=== PATIENT | female | born 1975 | race Caucasian/White ===

== ENCOUNTER 2020-08-13 07:47 | Outpatient (REF) | payer OTHER, SELFPAY | END 2020-08-13 07:48 | disposition home or self-care (01) | LOC: HO.LAB 07:47 | PROVIDERS: Visit Provider Internal Medicine | DX: Z20.828 Contact with and (suspected) exposure to other viral communicable diseases (principal) | CPT/HCPCS: C9803; U0003 ==

== ENCOUNTER 2020-11-15 09:17 | Outpatient (REF) | payer OTHER, SELFPAY ==
[2020-11-15 10:39] LABS: T4 Thyroxine 8.3 ug/dL (4.5-12.0); Thyroid Stimulating Hormone 1.18 uIU/mL (0.32-4.0)
[2020-11-15 10:49] LABS: Erythrocyte Sedimentation Rate 2 MM/HR (0-20); Folate 11.9 ng/mL (> or = 4.0); Vitamin B12 941 pg/mL (200-900)
[2020-11-16 03:21] LABS: T3 Uptake 34 % (22-35)
== END 2020-11-15 09:18 | disposition home or self-care (01) ==
LOC: HO.LAB 09:17
PROVIDERS: Absent Provider Internal Medicine; PCP Internal Medicine; Visit Provider Psychiatry & Neurology Neurology
DX: E03.9 Hypothyroidism, unspecified (principal); R42 Dizziness and giddiness
CPT/HCPCS: 36415; 82306; 82607; 82746; 84436; 84443; 84479; 85652

== ENCOUNTER 2020-12-13 06:42 | Outpatient (REF) | payer OTHER, SELFPAY ==
[2020-12-13 07:07] LABS: MANUAL DIFF FLAG NO
[2020-12-13 07:41] LABS: Alanine Aminotransferase 17 U/L (0-31); Albumin Level 4.3 g/dL (3.5-5.0); Alkaline Phosphatase 53 U/L (39-117); Anion Gap 10 (12-20); Aspartate Amino Transferase 16 U/L (5-31); Bilirubin Total 0.3 mg/dL (0.0-1.0); Blood Urea Nitrogen 19 mg/dL (9-16); C Reactive Protein 0.02 mg/dL (< or = 0.50); Calcium 8.8 mg/dL (8.4-10.2); Carbon Dioxide 26 mmol/L (22-29); Chloride 109 mmol/L (96-108); Cholesterol 195 mg/dL; Estimated Glomerular Filt Rate > 60; Glucose Fasting 96 mg/dL (60-99); HDL Cholesterol 53 mg/dL; Iron 69 mcg/dL (30-160); LDL Cholesterol Calculated 126 mg/dl; Percent Iron Saturation 26 % (15-50); Potassium 4.3 mmol/L (3.3-5.1); Sodium 141 mmol/L (135-145); Total Iron Binding Capacity 263 mcg/dL (228-428); Total Protein 6.2 g/dL (6.5-8.0); Triglycerides 84 mg/dL; Unsaturated Iron Binding 194 ug/dL
[2020-12-13 07:48] LABS: Basophils Absolute Auto 0.1 X10*3/uL (0.0-0.2); Eosinophils Absolute Auto 0.2 X10*3/uL (0.0-0.4); Eosinophils Percent Auto 4.8 % (0-4); Hematocrit 43.2 % (37-47); Hemoglobin 14.2 g/dl (12.0-16.0); Imm Gran Abs Auto 0.01 X10*3/uL (0.00-0.03); Imm Gran Pct Auto 0.2 % (0.0-0.4); Lymphocytes Absolute Auto 1.8 X10*3/uL (1.2-4.9); Lymphocytes Percent Auto 37.7 % (20-40); Mean Corpuscular HGB Conc 32.9 g/dl (31.0-35.0); Mean Corpuscular Hemoglobin 32.3 pg (27.0-33.0); Mean Corpuscular Volume 98.4 fL (80-98); Mean Platelet Volume 11.5 fL (9.4-12.3); Monocytes Absolute Auto 0.4 X10*3/uL (0.1-1.2); Monocytes Percent Auto 7.9 % (2-11); Neutrophils Absolute Auto 2.3 X10*3/uL (2.0-8.3); Neutrophils Percent Auto 48.4 % (45-73); Platelet Count 167 X10*3/uL (160-400); Red Blood Count 4.39 X10*6/uL (4.20-5.50); Red Cell Distribution Width 11.9 % (11.0-16.0); White Blood Count 4.8 X10*3/uL (4.8-10.8)
[2020-12-13 08:01] LABS: Thyroid Stimulating Hormone 0.73 uIU/mL (0.32-4.0)
[2020-12-13 08:10] LABS: Free T4 (Free Thyroxine) 1.03 ng/dL (0.71-1.85)
[2020-12-13 08:38] LABS: Erythrocyte Sedimentation Rate 1 MM/HR (0-20)
[2020-12-14 07:52] LABS: Triiodothyronine T3 Free 2.5 pg/mL (2.3-4.2)
[2020-12-14 09:07] LABS: Follicle Stimulating Hormone 6.2 mIU/mL
[2020-12-15 14:57] LABS: Anti Nuclear Antibody Pattern Nuclear, Homogeneous; Anti Nuclear Antibody Screen POSITIVE (NEGATIVE); Anti Nuclear Antibody Titer 1:40 titer
== END 2020-12-13 06:43 | disposition home or self-care (01) ==
LOC: HO.LAB 06:42
PROVIDERS: Internal Medicine; PCP Internal Medicine; Visit Provider Internal Medicine
DX: E03.9 Hypothyroidism, unspecified (principal)
CPT/HCPCS: 36415; 80053; 80061; 83001; 83540; 84439; 84443; 84481; 85025; 85652; 86038; 86039; 86140

== ENCOUNTER 2021-01-18 07:57 | Outpatient (REF) | payer OTHER, SELFPAY ==
--- NOTE | ~2021-01-18 | CT_ITS ---
EXAMINATION: CT HEAD WITHOUT CONTRAST CLINICAL INFORMATION: Head injury. COMPARISON: Most recent CT brain dated 12/18/2016 TECHNIQUE: Contiguous axial imaging was performed from the skull base to vertex without intravenous administration of contrast. This CT examination was performed using dose optimization techniques as appropriate, variously including the following: *Automated exposure control *Adjustment of mA and/or kV according to patient size (this includes techniques or standardized protocols for targeted exams where dose is matched to indication/reason for exam; i.e. extremities or head) *Use of iterative reconstruction technique DLP: 668 mGy-cm FINDINGS: There is no evidence of acute intracranial hemorrhage or territorial infarction. No abnormal mass effect or midline shift is seen. B[place]ante to white matter differentiation is well preserved. No extra-axial fluid collections are identified. The ventricles are normal in size. There is no abnormal attenuation within the brain parenchyma. The osseous structures and soft tissues are normal. The mastoid air cells and visualized portions of the paranasal sinuses are well aerated. CT/CT head/brain wo con IMPRESSION: No acute intracranial hemorrhage or mass effect.
== END 2021-01-18 07:58 | disposition home or self-care (01) ==
LOC: HO.CT 07:57
PROVIDERS: PCP Internal Medicine; Visit Provider Internal Medicine
DX: S09.90XA Unspecified injury of head, initial encounter (principal); R40.20 Unspecified coma
CPT/HCPCS: 70450

== ENCOUNTER 2021-03-22 20:22 | Emergency (ER) | payer OTHER, SELFPAY ==
--- NOTE | 2021-03-22 | ECG_ITS ---
Test Reason : chest pain Blood Pressure : / mmHG Vent. Rate : 060 BPM Atrial Rate : 060 BPM P-R Int : 158 ms QRS Dur : 070 ms QT Int : 382 ms P-R-T Axes : 082 032 052 degrees QTc Int : 382 ms Poor data quality Normal sinus rhythm with sinus arrhythmia No previous ECGs available Referred By: Generic ED Physician Electronically Signed By:Anselmo Rabago
--- NOTE | ~2021-03-22 | XR_ITS ---
EXAMINATION: XR CHEST, 2 VIEWS CLINICAL INFORMATION: Chest wall pain COMPARISON: None. TECHNIQUE: PA and lateral views of the chest were obtained. FINDINGS: Lungs are clear. No consolidation, pneumothorax, or pleural effusion. Cardiac and mediastinal contours are normal. Pulmonary vasculature is unremarkable. Trachea is midline. There is sigmoid scoliotic curvature in the upper lumbar spine. Spinal stimulator leads terminate over the mid to lower thoracic spine from T8 through T11. No acute osseous findings. XR/XR chest 2V IMPRESSION: No acute cardiopulmonary findings. No acute osseous findings. Spinal stimulator leads are in place month the mid to lower thoracic spine.
[2021-03-22 21:14] VITALS: BP 124/68; PULSE 77; RESP 18; TEMP 36.1; O2SAT 96; BMI 22.8
[2021-03-22 22:10] LABS: MANUAL DIFF FLAG NO
[2021-03-22 22:11] LABS: Basophils Absolute Auto 0.1 X10*3/uL (0.0-0.2); Basophils Percent Auto 0.7 % (0-2); Eosinophils Absolute Auto 0.3 X10*3/uL (0.0-0.4); Eosinophils Percent Auto 5.1 % (0-4); Hematocrit 41.7 % (37-47); Imm Gran Abs Auto 0.01 X10*3/uL (0.00-0.03); Imm Gran Pct Auto 0.1 % (0.0-0.4); Lymphocytes Absolute Auto 1.9 X10*3/uL (1.2-4.9); Lymphocytes Percent Auto 28.1 % (20-40); Mean Corpuscular HGB Conc 33.6 g/dl (31.0-35.0); Mean Corpuscular Hemoglobin 32.1 pg (27.0-33.0); Mean Corpuscular Volume 95.6 fL (80-98); Mean Platelet Volume 11.2 fL (9.4-12.3); Monocytes Absolute Auto 0.4 X10*3/uL (0.1-1.2); Monocytes Percent Auto 5.9 % (2-11); Neutrophils Percent Auto 60.1 % (45-73); Platelet Count 176 X10*3/uL (160-400); Red Blood Count 4.36 X10*6/uL (4.20-5.50); White Blood Count 6.7 X10*3/uL (4.8-10.8)
[2021-03-22 22:46] LABS: Alanine Aminotransferase 7 U/L (0-31); Albumin Level 4.2 g/dL (3.5-5.0); Alkaline Phosphatase 56 U/L (39-117); Anion Gap 11 (12-20); Aspartate Amino Transferase 11 U/L (5-31); Bilirubin Total 0.4 mg/dL (0.0-1.0); Blood Urea Nitrogen 15 mg/dL (9-16); Calcium 9.3 mg/dL (8.4-10.2); Carbon Dioxide 24 mmol/L (22-29); Chloride 109 mmol/L (96-108); Creatinine Clr Calc Pharmacy 94.7; Estimated Glomerular Filt Rate > 60; Glucose Random 96 mg/dL (60-115); Potassium 4.1 mmol/L (3.3-5.1); Sodium 140 mmol/L (135-145); Total Protein 6.3 g/dL (6.5-8.0)
[2021-03-22 22:52] LABS: Troponin-I High Sensitivity < 3.5 ng/L (<3.5-17.0)
--- NOTE | 2021-03-23 01:04 | ED_ITS ---
HPI - Chest Pain General Chief Complaint: Chest Pain Stated Complaint: rib pain Time Seen by Provider: 03/23/21 00:59 Source: patient Mode of arrival: ambulatory History of Present Illness HPI narrative: 45-year-old female with history of chronic pain secondary to multiple back surgeries now presenting with atraumatic shoulder/arm/chest wall pain that she states has been ongoing and worsening for the past 3 days. This is not been associated with any fever, chills, shortness of breath, palpitations, GI or symptoms. Patient states that she has used various [id number] modalities as well as her own medications. The pain does not worsen with deep inspiration but patient notes that on palpation she is experiencing discomfort. She denies any recent travel or calf swelling/pain. Related Data Home Medications Medication Instructions Recorded Confirmed gabapentin 300 mg capsule 600 mg PO BEDTIME 12/23/20 12/23/20 levothyroxine 112 mcg capsule 112 mcg PO DAILY 12/23/20 12/23/20 Allergies Allergy/AdvReac Type Severity Reaction Status Date / Time heparin [HEPARIN] Allergy Unknown ILL Verified 12/23/20 12:56 PLATELETS UNKNOWN heparin (porcine) Allergy Unknown unkn Verified 12/23/20 12:56 hydrocodone [Vicodin] Allergy Unknown Unknown Verified 12/23/20 12:56 hydromorphone [Dilaudid] Allergy Unknown cold sweats Verified 12/23/20 12:56 levothyroxine sodium Allergy Unknown Unknown Verified 12/23/20 12:56 meperidine [From DEMEROL] Allergy Unknown UNKNOWN Verified 12/23/20 12:56 tizanidine [From ZANAFLEX] Allergy Unknown WELTS Verified 12/23/20 12:56 APPEAR ALL OVER BODY tramadol [Ultram] Allergy Unknown welts Verified 12/23/20 12:56 acetaminophen [From PERCOCET] AdvReac Unknown UPSET/AGITA Verified 12/23/20 12:56 MICHAEL oxycodone [From PERCOCET] AdvReac Unknown UPSET/AGITA Verified 12/23/20 12:56 MICHAEL Review of Systems Review of Systems: Pertinent positives and negatives as stated in HPI 10 point review systems otherwise negative. PMFSH Past Medical History Source: nursing notes reviewed Medical History Acquired hypothyroidism Allergies Colon polyps Depression with anxiety Fatigue Head injury Hypothyroidism LOC (loss of consciousness) Nephrolithiasis Retinal detachment Seizure disorder Surgical History H/O: hysterectomy History of back surgery History of section History of kidney stones History of lumbar fusion History of thyroidectomy History of tonsillectomy Hx of removal of neck cyst S/P lumbar laminectomy Family History Family History Father No problems noted. Mother No problems noted. Brother No problems noted. Son No problems noted. Daughter No problems noted. Daughter No problems noted. Daughter No problems noted. Social History Social History Alcohol intake: current Advance Directives: No Advance Directives Information Provided: No Patient : No Physical Exam Vital Signs: Vital Signs: Last Vital Signs Temp 97.0 F 03/22/21 21:14 Pulse 77 03/22/21 21:14 Resp 18 03/22/21 21:14 BP 124/68 03/22/21 21:14 Pulse Ox 96 03/22/21 21:14 Body Mass Index 22.8 VITAL SIGNS: Reviewed. GENERAL: Well developed, well nourished, in no acute distress. HEAD: Normocephalic/atraumatic EYES: PERRLA, EOMI OROPHARYNX: no oral lesions noted, posterior pharynx clear LUNGS: Normal breath sounds. No adventitious sounds or accessory muscle use. SpO2<96> CARDIOVASCULAR: Regular rate and rhythm without noted murmurs ABDOMEN: Soft, non-tender, non-distended with bowel sounds. CHEST WALL/LEFT UPPER EXTREMITY: Patient is noted to be freely moving her left upper extremity at the shoulder without restrictions, capillary refill less than 3 seconds, palpable radial/ulnar, pain on palpation over superior and medial scapular area NEUROLOGIC: Alert and oriented x 4. Course Course Course Narrative: 45-year-old female with history and clinical presentation consistent with musculoskeletal pain, will evaluate for less likely cardiopulmonary etiologies and inconsistent with renal colic and low suspicion for splenic etiology. Review of all investigations negative for any acute findings, patient declining Toradol stating that it does not work, and discharged with pain regimen that should be able to augment her current prescription medications. MDM - Chest Pain Lab Data Result diagrams: 03/22/21 22:03 03/22/21 22:03 Labs: Lab Results 03/22/21 03/22/21 03/22/21 Range/Units 22:03 22:03 22:03 WBC 6.7 (4.8-10.8) X10*3/uL RBC 4.36 (4.20-5.50) X10*6/uL Hgb 14.0 (12.0-16.0) g/dl Hct 41.7 (37-47) % MCV 95.6 (80-98) fL MCH 32.1 (27.0-33.0) pg MCHC 33.6 (31.0-35.0) g/dl RDW 12.0 (11.0-16.0) % Plt Count 176 (160-400) X10*3/uL MPV 11.2 (9.4-12.3) fL Immature Gran % (Auto) 0.1 (0.0-0.4) % Neut % (Auto) 60.1 (45-73) % Lymph % (Auto) 28.1 (20-40) % [place] % (Auto) 5.9 (2-11) % Eos % (Auto) 5.1 H (0-4) % Baso % (Auto) 0.7 (0-2) % Lymph # (Auto) 1.9 (1.2-4.9) X10*3/uL [place] # (Auto) 0.4 (0.1-1.2) X10*3/uL Eos # (Auto) 0.3 (0.0-0.4) X10*3/uL Baso # (Auto) 0.1 (0.0-0.2) X10*3/uL Abs Immat Gran (auto) 0.01 (0.00-0.03) X10*3/uL Absolute Neuts (auto) 4.0 (2.0-8.3) X10*3/uL Absolute Nucleated RBC 0.000 (0.0-0.012) X10*3/uL Nucleated RBC % (auto) 0.0 (0.0-0.2) /100WBC Sodium 140 (135-145) mmol/L Potassium 4.1 (3.3-5.1) mmol/L Chloride 109 H (96-108) mmol/L Carbon Dioxide 24 (22-29) mmol/L Anion Gap 11 L (12-20) BUN 15 (9-16) mg/dL Creatinine 0.80 (0.5-1.4) mg/dL Estim Creat Clear Calc 94.7 Estimated GFR > 60 Random Glucose 96 (60-115) mg/dL Calcium 9.3 (8.4-10.2) mg/dL Total Bilirubin 0.4 (0.0-1.0) mg/dL AST 11 (5-31) U/L ALT 7 (0-31) U/L Alkaline Phosphatase 56 (39-117) U/L Troponin I High Sens < 3.5 (<3.5-17.0) ng/L Total Protein 6.3 L (6.5-8.0) g/dL Albumin 4.2 (3.5-5.0) g/dL ECG Data ECG #1: Attestation: I personally reviewed and interpreted this ECG as follows: Prior ECG tracings: not available for review Interpretation: Normal sinus rhythm with sinus arrhythmia, HR-60, no evidence of acute ischemia, [place]/QRS/QTC are within normal limits. Discharge Plan Discharge Clinical Impression: Musculoskeletal pain of left upper extremity Patient Disposition: Home, Self-Care Instructions: Musculoskeletal Pain (ED) Additional Instructions: 1. Please resume all home medications as prescribed. 2. Lidocaine patch, available [id number], continue to apply to area of maximal pain as directed on the outside packaging. 3. Recommend following up with your primary care provider for re-evaluation. Return to the ER for acute worsening of symptoms. Prescriptions: No Action levothyroxine 112 mcg capsule 112 mcg PO DAILY RF: 0 gabapentin 300 mg capsule 600 mg PO BEDTIME RF: 0 Referrals: Yoko He MD [Primary Care Provider] - 2 days (Re-evaluation for musculoskeletal pain.)
--- NOTE | 2021-03-23 02:32 | PC.NURSE ---
pt refused the pain medication the provider was going to prescribe for her, pt states that the medication doesnt work for her. While the pt is making this statement she was raising her arms moving all extremities with no difficulty or grimising. provider made aware. pt was on phone became upset on the phone and left. pt left without signing her discharge papers.
--- NOTE | 2021-03-23 02:37 | PC.NURSE ---
pt was seen leaving while on her cell phone at 0230 going to the waiting room, pt did not return and no signiture on her discharge was obtained.
== END 2021-03-23 02:36 | disposition home or self-care (01) ==
PROVIDERS: Emergency Provider Student in an Organized Health Care Education/Training Program; PCP Internal Medicine
DX: M79.602 Pain in left arm (principal); R07.89 Other chest pain
CPT/HCPCS: 36415; 71046; 80053; 84484; 85025; 93005; 99283

== ENCOUNTER 2021-06-17 13:26 | Outpatient (REF) | payer OTHER, SELFPAY ==
--- NOTE | ~2021-06-17 | XR_ITS ---
EXAMINATION: XR KNEE, LEFT CLINICAL INFORMATION: Pain in left knee COMPARISON: None TECHNIQUE: Four views of the left knee. FINDINGS: No acute visible fracture or dislocation. Mild narrowing of the medial femorotibial compartment. Spurring of the tibial spines. Joint spaces and alignment are otherwise maintained. No large knee joint effusion. Soft tissues are unremarkable. XR/XR knee LT 4V IMPRESSION: 1. No acute visible fracture or dislocation. 2. Mild multicompartment degenerative changes.
== END 2021-06-17 13:27 | disposition home or self-care (01) ==
LOC: HO.HMGCX 13:26
PROVIDERS: PCP Internal Medicine; Visit Provider Internal Medicine
DX: Z13.89 Encounter for screening for other disorder (principal)
CPT/HCPCS: 73564

== ENCOUNTER 2021-06-29 08:50 | Outpatient (RCR) | payer OTHER, SELFPAY ==
--- NOTE | 2021-06-29 12:52 | MHC.PT.EP ---
[facility] [place] Office [place] Office [place] Office [address] [phone] F: [phone] F: [phone] F: [phone] F: [phone] Physical Therapy Plan of Care Date of Evaluation: Date of Surgery: NA Diagnosis: PAIN IN L KNEE Assessment: Pt IS 46 YO F WITH LENGTHY/COMPLEX MEDICAL HX REFERRED TO PT FROM [facility] WITH L KNEE PAIN. Pt REPORTS ONSET OF SXS ABOUT 1 YR AGO WHEN SITTING/BOUNCING ON PHYSIOBALL AND FELT A POP IN L KNEE. DID NOT HAVE PT. XRAY + FOR ARTHRITIS. PRESENTS WITH GOOD ROM IN KNEES WITH GOOD STRENGTH ON L (PAINFUL SIDE) BUT DECREASED STRENGTH ON R SIDE (HX OF BACK SURGERIES, HAS SC STIMULATOR R LB). Pt SHOULD BENEFIT FROM PT FOR LE TREATMENT OF PF SYNDROME WITH STRENGTHENING, TAPING, HIP AND CORE WORK ALL BEING MINDFUL OF LB (S/P 7 SURGERIES). OF NOTE, Pt REPORTS HERNIA REPAIR AND C SECTION FOR TWINS 16 YRS AGO (HER KIDS LIVE WITH THEIR GRANDMOTHER) WITH RESULTANT ABDOMINAL WEAKNESS. Frequency and Duration: The patient will be seen 2X/WK X 6 WKS Short Term Goals: 1. INCREASED AWARENESS KNEE CARE/SELF TAPING IF INDICATED 2. 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 DECREASED L KNEE PAIN AT LEAST 50% WITH ADLS Treatment Plan: Modalities to reduce pain, spasms and effusion. Manual therapy to restore motion and function. Therapeutic exercise to improve strength and flexibility. Neuromuscular re-education for posture and balance. Therapeutic activities to return to functional activities of daily living. Electronically signed by: LAVON HOGAN PT Please sign and return to therapist. Thank you for your referral.
--- NOTE | 2021-08-03 09:11 | MHC.PT.DC ---
[facility] [place] Office [place] Office [place] Office [address] [phone] F: [phone] F: [phone] F: [phone] F: [phone] Physical Therapy Discharge Report Diagnosis: PAIN IN L KNEE Date of Surgery: NA Date of Evaluation: 06/29/21 Date of Discharge: 08/03/21 Treatments to Date: 1 Cancellations to Date: No Shows to Date: Discharge Status: Recommend MD Follow-up Visit Non-compliance Discharge Summary: Pt SEEN FOR [facility] THEN CANCELLED FURTHER APPTS SECONDARY TO NOT FEELING WELL IN THE MORNINGS. ASSESSMENT AT [facility] 'Pt IS 46 YO F WITH LENGTHY/COMPLEX MEDICAL HX REFERRED TO PT FROM [facility] WITH L KNEE PAIN. Pt REPORTS ONSET OF SXS ABOUT 1 YR AGO WHEN SITTING/BOUNCING ON PHYSIOBALL AND FELT A POP IN L KNEE. DID NOT HAVE PT. XRAY + FOR ARTHRITIS. PRESENTS WITH GOOD ROM IN KNEES WITH GOOD STRENGTH ON L (PAINFUL SIDE) BUT DECREASED STRENGTH ON R SIDE (HX OF BACK SURGERIES, HAS SC STIMULATOR R LB). Pt SHOULD BENEFIT FROM PT FOR LE TREATMENT OF PF SYNDROME WITH STRENGTHENING, TAPING, HIP AND CORE WORK ALL BEING MINDFUL OF LB (S/P 7 SURGERIES). OF NOTE, Pt REPORTS HERNIA REPAIR AND C SECTION FOR TWINS 16 YRS AGO (HER KIDS LIVE WITH THEIR GRANDMOTHER) WITH RESULTANT ABDOMINAL WEAKNESS. ' Electronically signed by: LAVON HOGAN PT Please sign and return to therapist. Thank you for your referral.
== END 2021-08-03 09:13 | disposition home or self-care (01) ==
LOC: HO.PTWFD 08:50
PROVIDERS: PCP Internal Medicine; Visit Provider Internal Medicine
DX: M25.562 Pain in left knee (principal)
CPT/HCPCS: 97110; 97140; 97162

== ENCOUNTER 2022-05-03 06:33 | Outpatient (REF) | payer OTHER, SELFPAY ==
[2022-05-03 07:33] LABS: Basophils Percent Auto 0.6 % (0-2); Eosinophils Absolute Auto 0.3 X10*3/uL (0.0-0.4); Eosinophils Percent Auto 5.7 % (0-4); Hematocrit 45.5 % (37.0-47.0); Imm Gran Abs Auto 0.02 X10*3/uL (0.00-0.03); Imm Gran Pct Auto 0.4 % (0.0-0.4); Lymphocytes Absolute Auto 1.6 X10*3/uL (1.2-4.9); Lymphocytes Percent Auto 33.4 % (20-40); MANUAL DIFF FLAG NO; Mean Corpuscular Hemoglobin 32.1 pg (27.0-33.0); Mean Corpuscular Volume 97.2 fL (80.0-98.0); Mean Platelet Volume 11.1 fL (9.4-12.3); Monocytes Absolute Auto 0.4 X10*3/uL (0.1-1.2); Monocytes Percent Auto 7.6 % (2-11); Neutrophils Absolute Auto 2.5 x10*3/uL (2.0-8.3); Neutrophils Percent Auto 52.3 % (45-73); Platelet Count 177 X10*3/uL (160-400); Red Blood Count 4.68 X10*6/uL (4.20-5.50); Red Cell Distribution Width 12.7 % (11.0-16.0); White Blood Count 4.7 X10*3/uL (4.8-10.8)
[2022-05-03 07:57] LABS: Alanine Aminotransferase 14 U/L (0-31); Albumin Level 4.4 g/dL (3.5-5.0); Alkaline Phosphatase 55 U/L (39-117); Anion Gap 12 (12-20); Aspartate Amino Transferase 13 U/L (5-31); Bilirubin Total 0.4 mg/dL (0.0-1.0); Blood Urea Nitrogen 12 mg/dL (9-16); Calcium 9.1 mg/dL (8.4-10.2); Carbon Dioxide 24 mmol/L (22-29); Chloride 110 mmol/L (96-108); Cholesterol 214 mg/dL; Estimated Glomerular Filt Rate > 60; Glucose Fasting 95 mg/dL (60-99); HDL Cholesterol 53 mg/dL; LDL Cholesterol Calculated 143 mg/dl; Potassium 4.4 mmol/L (3.3-5.1); Sodium 142 mmol/L (135-145); Total Protein 6.5 g/dL (6.5-8.0); Triglycerides 93 mg/dL
[2022-05-03 08:21] LABS: TSH reflex Free T4 2.03 uIU/mL (0.32-4.0)
[2022-05-03 08:36] LABS: Appearance Urine HAZY; Color Urine YELLOW; Glucose Urine UA NEG (NEG); Leukocyte Esterase Urine 1+ (NEG); Nitrite Urine POS (NEG); Specific Gravity - Urine 1.015 (1.005-1.025); Urine Blood TRACE (NEG); Urine Ketones NEG (NEG); Urine Protein TRACE MG/DL (NEG-TRACE)
[2022-05-03 08:51] LABS: Bacteria Urine 3+ /LPF; Squamous Epithelial Cell Urine 2+ /LPF
== END 2022-05-03 06:34 | disposition home or self-care (01) ==
LOC: HO.LAB 06:33
PROVIDERS: PCP Internal Medicine; Visit Provider Internal Medicine
DX: Z00.00 Encounter for general adult medical examination without abnormal findings (principal); E03.9 Hypothyroidism, unspecified; Z13.220 Encounter for screening for lipoid disorders; Z13.29 Encounter for screening for other suspected endocrine disorder; M25.562 Pain in left knee
CPT/HCPCS: 36415; 80053; 80061; 81001; 84443; 85025

== ENCOUNTER 2023-01-03 08:45 | Outpatient (REF) | payer OTHER, SELFPAY ==
[2023-01-03 10:44] LABS: TSH reflex Free T4 0.45 uIU/mL (0.32-4.0)
[2023-01-05 07:23] LABS: Triiodothyronine T3 Free 3.4 pg/mL (2.3-4.2)
== END 2023-01-03 08:46 | disposition home or self-care (01) ==
LOC: HO.LAB 08:45
PROVIDERS: PCP Internal Medicine; Visit Provider Internal Medicine
DX: E03.9 Hypothyroidism, unspecified (principal)
CPT/HCPCS: 36415; 84443; 84481

== ENCOUNTER 2023-01-18 12:38 | Emergency (ER) | payer OTHER, SELFPAY ==
--- NOTE | ~2023-01-18 | CT_ITS ---
EXAMINATION: NONCONTRAST HEAD CT NONCONTRAST MAXILLOFACIAL CT INDICATION INFORMATION: Acute traumatic head injury . Right orbital trauma. COMPARISON: 01/18/2021 TECHNIQUE: Separate noncontrast CT examinations of the head and maxillofacial bones were performed. Coronal and sagittal images were created for each examination at the technologist workstation. This CT examination was performed using dose optimization techniques as appropriate, variously including the following: *Automated exposure control *Adjustment of mA and/or kV according to patient size (this includes techniques or standardized protocols for targeted exams where dose is matched to indication/reason for exam; i.e. extremities or head) *Use of iterative reconstruction technique DLP: 752 mGy-cm FINDINGS: Head: There is no evidence of acute intracranial hemorrhage or territorial infarction. No abnormal mass effect or midline shift is seen. Bust[place]ante to white matter differentiation is well preserved. No extra-axial fluid collections are identified. No hydrocephalus. No significant volume loss. There is no abnormal attenuation within the brain parenchyma. No acute soft tissue abnormality. No calvarial fracture. The mastoid air cells are well aerated. Maxillofacial: No acute maxillofacial fractures are seen. The orbital rims are intact. The lamina papyracea are intact. The pterygoid plates are intact. The zygomatic arches are intact. Mild mucoperiosteal thickening of the maxillary sinuses. The remaining paranasal sinuses are well aerated. The uncinate process is normal bilaterally. The infundibula and middle meati are patent. The nasal septum is midline. The mandibular heads are well-seated in the condylar fossa. The orbits demonstrate a normal appearance bilaterally. The globes are intact, and there are no suspicious findings to suggest retrobulbar hemorrhage. Scleral band at the left globe. CT/CT head/brain wo IV con IMPRESSION: 1. No acute intracranial finding. 2. No acute maxillofacial fracture.
[2023-01-18 12:42] VITALS: BP 127/92; PULSE 75; RESP 17; TEMP 36.6; O2SAT 98; BMI 20.7
--- NOTE | 2023-01-18 13:03 | ECG_ITS ---
Test Reason : dizziness Blood Pressure : / mmHG Vent. Rate : 059 BPM Atrial Rate : 059 BPM P-R Int : 180 ms QRS Dur : 098 ms QT Int : 394 ms P-R-T Axes : 081 056 070 degrees QTc Int : 390 ms Sinus bradycardia with sinus arrhythmia Otherwise normal ECG When compared with ECG of 22-MAR-2021 21:50, No significant changes seen Referred By: Rita Laird Electronically Signed By:VICENTE JARVIS
[2023-01-18 13:23] LABS: MANUAL DIFF FLAG NO
[2023-01-18 13:27] LABS: Basophils Percent Auto 0.4 % (0-2); Eosinophils Percent Auto 0.3 % (0-4); Hematocrit 45.2 % (37.0-47.0); Imm Gran Abs Auto 0.02 X10*3/uL (0.00-0.03); Imm Gran Pct Auto 0.3 % (0.0-0.4); Lymphocytes Absolute Auto 1.4 X10*3/uL (1.2-4.9); Lymphocytes Percent Auto 18.1 % (20-40); Mean Corpuscular HGB Conc 33.2 g/dl (31.0-35.0); Mean Corpuscular Hemoglobin 31.7 pg (27.0-33.0); Mean Corpuscular Volume 95.6 fL (80.0-98.0); Mean Platelet Volume 10.8 fL (9.4-12.3); Monocytes Absolute Auto 0.4 X10*3/uL (0.1-1.2); Monocytes Percent Auto 4.6 % (2-11); Neutrophils Percent Auto 76.3 % (45-73); Platelet Count 214 X10*3/uL (160-400); Red Blood Count 4.73 X10*6/uL (4.20-5.50); Red Cell Distribution Width 12.1 % (11.0-16.0); White Blood Count 7.9 X10*3/uL (4.8-10.8)
[2023-01-18 13:31] LABS: INTERNATIONAL NORM RATIO 0.9 (0.9-1.1); Prothrombin Time 10.6 SEC (10.0-13.1)
[2023-01-18 13:34] VITALS: BP 138/70; PULSE 65; RESP 20; TEMP 36.8; O2SAT 98
--- NOTE | 2023-01-18 14:02 | ED.GENADULT ---
HPI - General Adult General Chief complaint: General Medical Stated complaint: rash on both legs/dizziness/nausea Time Seen by Provider: 01/18/23 13:38 Source: patient Mode of arrival: ambulatory Limitations: no limitations History of Present Illness HPI narrative: A 47-year-old female with history of multiple surgeries presents with multiple complaints. First of all, patient notes a rash lower extremities. This has been going on for several weeks. Not painful or irritating. His dark patches on the lower extremities. She denies any additional rashes elsewhere. She does report scattered ecchymoses at her nontraumatic in nature. Over the past week, however, patient has had transient vision loss which she describes as white duran of vision that lasts briefly. Associated with difficulty ambulating and frequent falls. Today, patient was on the stairs, fell, hit her head. There is no loss of consciousness. Patient describes a severe headache. She denies any focal neurologic deficits. She does have a headache. The headache was moderate nature. The pain is generalized. Does not radiate. Not associated with photo or phonophobia. There is associated nausea but no vomiting. Patient reports a history of multiple back surgeries. She has a dorsal column stimulator. She reports that is currently functioning without significant issues. Patient is currently with a good friend of hers. Her friend is concerned about safety related issues. From reports a significant amount of stress and poor living situation. Patient reports a lot of herbal yelling from her roommate who is also her boss. She denies any physical abuse. Overall she feels safe however, from does not believe she is safe. Friend is requesting a psychiatric evaluation and respite. Patient denies SI or HI. She does agree that there is stress and anxiety. She is more anxious that she might have leukemia due to the rash that she has. Patient does not distally want to stay in the hospital she has classic this evening and she has a dog that she likes a care. He friend offered to take the pat home with her. Related Data Home Medications Medication Instructions Recorded Confirmed gabapentin 300 mg capsule 600 mg PO BEDTIME 12/23/20 06/19/22 ascorbate calcium (vitamin C) 500 1,000 mg PO DAILY 06/16/21 06/19/22 mg tablet Previous Rx's Medication Instructions Recorded Tirosint 112 mcg capsule 112 mcg PO DAILY #90 caps 06/19/22 (levothyroxine) Allergies Allergy/AdvReac Type Severity Reaction Status Date / Time heparin [HEPARIN] Allergy Unknown ILL Verified 06/19/22 13:25 PLATELETS UNKNOWN heparin (porcine) Allergy Unknown unkn Verified 06/19/22 13:25 hydrocodone [Vicodin] Allergy Unknown Hallucinati Verified 06/19/22 13:25 ons hydromorphone [Dilaudid] Allergy Unknown cold sweats Verified 06/19/22 13:25 levothyroxine sodium Allergy Unknown Nausea Verified 06/19/22 13:25 meperidine [From DEMEROL] Allergy Unknown n/a Verified 06/19/22 13:25 tizanidine [From ZANAFLEX] Allergy Unknown WELTS Verified 06/19/22 13:25 APPEAR ALL OVER BODY tramadol [Ultram] Allergy Unknown welts Verified 06/19/22 13:25 corn Allergy Swelling Verified 01/18/23 12:42 wheat Allergy Swelling Verified 01/18/23 12:42 acetaminophen [From PERCOCET] AdvReac Unknown UPSET/AGITA Verified 06/19/22 13:25 MICHAEL oxycodone [From PERCOCET] AdvReac Unknown UPSET/AGITA Verified 06/19/22 13:25 MICHAEL vinegar Allergy Swelling Uncoded 01/18/23 12:42 PMFSH Past Medical History Medical History Abdominal wall hernia Acquired hypothyroidism Allergies Annual physical exam Colon polyps Depression with anxiety Fatigue Head injury Hypothyroidism Knee pain, left LOC (loss of consciousness) Nephrolithiasis Retinal detachment Seizure disorder Surgical History H/O: hysterectomy History of back surgery History of section History of kidney stones History of lumbar fusion History of thyroidectomy History of tonsillectomy Hx of removal of neck cyst S/P lumbar laminectomy Family History Family History Father No problems noted. Mother No problems noted. Brother Substance use disorder Son No problems noted. Daughter No problems noted. Daughter No problems noted. Daughter No problems noted. Social History Social History Housing: House Alcohol intake: never Patient Tobacco Use Status: Former Tobacco user Quit Date: 2 years ago Smoked in Last 30 Days: Yes e-Cigarette/Vaping Use: Never Used Use of substances other than those prescribed or required for medical reasons: Yes Substance Use Type: Marijuana Advance Directives: No Advance Directives Information Provided: No Current occupational status: disabled Cognitive needs: No Hearing needs: No Vision needs: Yes Physical Exam ED Vital Signs: Vital Signs - 24 hr 01/18/23 12:42 01/18/23 13:34 Temperature 98 F 98.2 F Pulse Rate 75 65 Respiratory Rate 17 20 Blood Pressure 127/92 H 138/70 Pulse Oximetry 98 98 Oxygen Delivery Method Room Air Room Air BMI result Body Mass Index 20.7 GEN: Well developed, no acute distress, alert, oriented HEENT: Normocephalic, right lateral orbital ecchymoses, normal external ears, nose appears normal, no oropharyngeal edema or exudates Eyes: Normal to appearance Neck: Supple, no lymphadenopathy Respiratory: Talks in complete sentences, no respiratory distress, clear to auscultation bilaterally Cardiovascular: Regular rate and rhythm, no murmurs rubs or gallops Abdomen: Soft, nontender, nondistended, no guarding, no rebound Back: No CVA tenderness Extremities: No clubbing cyanosis or edema Neurologic: No focal neurologic deficits, cranial nerves 2-12 intact, strength is 5/5 bilaterally Skin: Light brown spotted rash on lower extremities non raise Course Course Course Narrative: Patient presents with multiple complaints. Regarding frequent falls, etiology is not entirely clear. Patient also has intermittent vision changes. There certainly could be an ophthalmological related issue versus a neurologic issue. She is under the care of a neurologist currently. Symptoms started approximately 1 week ago. My evaluation, there are no focal neurologic deficits. There are ecchymosis on the right lateral orbit. She denies that this is due to physical abuse. She reports that she has had frequent falls. He the transient vision loss is not entirely well understood at this time. Patient reports having a retinal buckle in her left eye patient has scattered ecchymoses and a rash. Symptoms could be concerning for vasculitis, petechia a and low platelets or perhaps some not benign other finding. Given the constellation of complaints, patient have a CT scan of the head with and without IV contrast. Will check laboratory analysis. Will consider a psychiatric evaluation given the degree of stress and anxiety. Patient however, does not appear the threat to herself or others. She is not suicidal or homicidal. Patient does not appear to be specifically willing to be admitted for behavioral health reasons at this time. Reevaluation(s) Reevaluation #1: patient had IV but became very anxious demanded IV removal. Will have CT without contrast only to r/o acute ICH. MRI not possible given DCS. Time: 14:47 Reevaluation #2: Patient decided to elope. I was able to talk with her briefly on the way out. She is leaving against medical advice but did not want to sign paperwork or wait for her discharge paperwork either. She did not have all of her results available. She is aware that she should not drive due to her vision changes recommended that she follow-up with her neurologist and her director style as quickly as possible. She was informed to return for any worsening or concerning symptoms. We have an incomplete brain CT may be because were not able to obtain a CT with and without contrast. We only obtained 1 without contrast. There is no acute findings. She was informed that for any reason she should return immediately for re-evaluation and further management. Patient is not an imminent threat to herself or to others. She is not suicidal homicidal. She is clearly stressed and likely has some sort of mood disorder/adjustment disorder. She does not wish to have a psychiatric evaluation. At this point I do not believe she needs to be mandated to do so. Time: 15:55 Medications Administered Discontinued Medications Generic Name Dose Route Start Last Admin Trade Name Freq PRN Reason Stop Dose Admin Ondansetron HCl 4 mg 01/18/23 14:07 01/18/23 14:23 Ondansetron Hcl 4 Mg/2 Ml Vial IVPUSH 01/18/23 14:08 4 mg ONCE ONE Administration Medical Decision Making Medical Decision Making [facility] Narrative: 47-year-old female presents with multiple Issues First, patient has rash in lower extremities. This could be vasculitic or pigmented. This does not appear to be a worrisome rash. Does not appear to be cancerous in any way at this time. Will check platelets . Second patient has had frequent falls, will need to rule out anemia, electrolyte abnormalities such as hyponatremia, hypokalemia, could be also neurologic. Will order CT scan of the head with and without contrast specially given transient vision loss. Third, patient also complains of transient vision loss. Unclear the etiology of the symptoms. Patient reports that retinal buckle in the left eye. Again will obtain a CT scan of the head with and without IV contrast to further categories 1. Fourth, patient appears to be under lot of stress with anxiety. She either works or goes to school for 13-14 hours daily. She lives in a stressful situation. She denies any concern for physical abuse. For and is concerned about the levels of stress and anxiety and would like her to consider a psychiatric evaluation. Patient does have decision making capacity. She does not appear to pose an imminent threat to herself appears. He decide whether she warrants a care team/crisis team patient Admission/Observation Consideration of admission/observation: Escalation of care including admission/observation considered Lab Data MDM Lab Attestation statement: I reviewed the patient's lab results. 01/18/23 13:14 01/18/23 13:14 Labs: Lab Results 01/18/23 01/18/23 01/18/23 Range/Units 13:14 13:14 13:14 WBC 7.9 (4.8-10.8) X10*3/uL RBC 4.73 (4.20-5.50) X10*6/uL Hgb 15.0 (12.0-16.0) g/dl Hct 45.2 (37.0-47.0) % MCV 95.6 (80.0-98.0) fL MCH 31.7 (27.0-33.0) pg MCHC 33.2 (31.0-35.0) g/dl RDW 12.1 (11.0-16.0) % Plt Count 214 (160-400) X10*3/uL MPV 10.8 (9.4-12.3) fL Immature Gran % (Auto) 0.3 (0.0-0.4) % Neut % (Auto) 76.3 H (45-73) % Lymph % (Auto) 18.1 L (20-40) % Powell % (Auto) 4.6 (2-11) % Eos % (Auto) 0.3 (0-4) % Baso % (Auto) 0.4 (0-2) % Lymph # (Auto) 1.4 (1.2-4.9) X10*3/uL Powell # (Auto) 0.4 (0.1-1.2) X10*3/uL Eos # (Auto) 0.0 (0.0-0.4) X10*3/uL Baso # (Auto) 0.0 (0.0-0.2) X10*3/uL Abs Immat Gran (auto) 0.02 (0.00-0.03) X10*3/uL Absolute Neuts (auto) 6.0 (2.0-8.3) x10*3/uL Absolute Nucleated RBC 0.000 (0.0-0.012) X10*3/uL Nucleated RBC % (auto) 0.0 (0.0-0.2) /100WBC PT 10.6 (10.0-13.1) SEC INR 0.9 (0.9-1.1) Sodium 142 (135-145) mmol/L Potassium 4.8 (3.3-5.1) mmol/L Chloride 108 (96-108) mmol/L Carbon Dioxide 25 (22-29) mmol/L Anion Gap 14 (12-20) BUN 16 (9-16) mg/dL Creatinine 0.91 (0.5-1.4) mg/dL Estim Creat Clear Calc 78.2 Estimated GFR > 60 Random Glucose 95 (60-115) mg/dL Calcium 9.6 (8.4-10.2) mg/dL Magnesium 2.0 (1.6-2.6) mg/dL Total Bilirubin 0.8 (0.0-1.0) mg/dL Direct Bilirubin 0.2 (0.0-0.5) mg/dL AST 19 (5-31) U/L ALT 22 (0-31) U/L Alkaline Phosphatase 57 (39-117) U/L Troponin I High Sens (<3.5-17.0) ng/L Total Protein 6.9 (6.5-8.0) g/dL Albumin 4.7 (3.5-5.0) g/dL Ethyl Alcohol < 10 mg/dL 01/18/23 Range/Units 13:14 WBC (4.8-10.8) X10*3/uL RBC (4.20-5.50) X10*6/uL Hgb (12.0-16.0) g/dl Hct (37.0-47.0) % MCV (80.0-98.0) fL MCH (27.0-33.0) pg MCHC (31.0-35.0) g/dl RDW (11.0-16.0) % Plt Count (160-400) X10*3/uL MPV (9.4-12.3) fL Immature Gran % (Auto) (0.0-0.4) % Neut % (Auto) (45-73) % Lymph % (Auto) (20-40) % Powell % (Auto) (2-11) % Eos % (Auto) (0-4) % Baso % (Auto) (0-2) % Lymph # (Auto) (1.2-4.9) X10*3/uL Powell # (Auto) (0.1-1.2) X10*3/uL Eos # (Auto) (0.0-0.4) X10*3/uL Baso # (Auto) (0.0-0.2) X10*3/uL Abs Immat Gran (auto) (0.00-0.03) X10*3/uL Absolute Neuts (auto) (2.0-8.3) x10*3/uL Absolute Nucleated RBC (0.0-0.012) X10*3/uL Nucleated RBC % (auto) (0.0-0.2) /100WBC PT (10.0-13.1) SEC INR (0.9-1.1) Sodium (135-145) mmol/L Potassium (3.3-5.1) mmol/L Chloride (96-108) mmol/L Carbon Dioxide (22-29) mmol/L Anion Gap (12-20) BUN (9-16) mg/dL Creatinine (0.5-1.4) mg/dL Estim Creat Clear Calc Estimated GFR Random Glucose (60-115) mg/dL Calcium (8.4-10.2) mg/dL Magnesium (1.6-2.6) mg/dL Total Bilirubin (0.0-1.0) mg/dL Direct Bilirubin (0.0-0.5) mg/dL AST (5-31) U/L ALT (0-31) U/L Alkaline Phosphatase (39-117) U/L Troponin I High Sens 3.1 (<3.5-17.0) ng/L Total Protein (6.5-8.0) g/dL Albumin (3.5-5.0) g/dL Ethyl Alcohol mg/dL Independent Interpretation I performed an independent interpretation of an: EKG (Sinus bradycardia heart rate 59, sinus arrhythmia, no acute ST elevations depressions, otherwise normal EKG) and CT Scan (ct head NAD) Radiology Impression Radiologist Impression: CT/CT head/brain wo IV con IMPRESSION: 1.? No acute intracranial finding. 2.? No acute maxillofacial fracture. ? Dictated By: Madi Rodriguez MD Signed By: <Electronically signed by Madi Rodriguez MD in OV> 01/18/23 1539 Independent Historian Clinical information obtained from an independent historian. History obtained from or confirmed by: Friend Tests considered The following testing was considered but not selected: MRI but patient has a dorsal column stimulator Prescription Management I considered prescription management with: Pain Medication Discharge Plan Discharge Clinical Impression: Frequent falls, Acute head injury, Periorbital ecchymosis of right eye, Stress reaction, Rash Patient Disposition: Left Against Medical Advice Instructions: Black Eye (ED), Stress (ED), Head Injury (ED), Acute Rash (ED) Prescriptions: No Action gabapentin 300 mg capsule 600 mg PO BEDTIME ascorbate calcium (vitamin C) 500 mg tablet 1,000 mg PO DAILY levothyroxine [Tirosint] 112 mcg capsule 112 mcg PO DAILY Qty: 90 3RF Stand Alone Forms: Against Medical Advice
[2023-01-18] MEDS: ondansetron HCL 4 MG/2 ML VIAL IVPUSH (14:23)
[2023-01-18 15:40] LABS: Troponin-I High Sensitivity 3.1 ng/L (<3.5-17.0)
[2023-01-18 15:41] LABS: Alanine Aminotransferase 22 U/L (0-31); Albumin Level 4.7 g/dL (3.5-5.0); Alkaline Phosphatase 57 U/L (39-117); Anion Gap 14 (12-20); Aspartate Amino Transferase 19 U/L (5-31); Bilirubin Direct 0.2 mg/dL (0.0-0.5); Bilirubin Total 0.8 mg/dL (0.0-1.0); Blood Urea Nitrogen 16 mg/dL (9-16); Calcium 9.6 mg/dL (8.4-10.2); Carbon Dioxide 25 mmol/L (22-29); Chloride 108 mmol/L (96-108); Creatinine Clr Calc Pharmacy 78.2; Estimated Glomerular Filt Rate > 60; Ethanol < 10 mg/dL; Glucose Random 95 mg/dL (60-115); Potassium 4.8 mmol/L (3.3-5.1); Sodium 142 mmol/L (135-145); Total Protein 6.9 g/dL (6.5-8.0)
[2023-01-18 15:55] LABS: TSH reflex Free T4 0.32 uIU/mL (0.32-4.0)
--- NOTE | 2023-01-18 16:24 | PC.NURSE ---
pt got dressed and stated I'm leaving . pt walked out of ed. this rn removed her iv prior to her leaving.
== END 2023-01-18 16:15 | disposition left against medical advice (07) ==
PROVIDERS: Physician Assistant; Emergency Provider Emergency Medicine; PCP Internal Medicine
DX: S09.90XA Unspecified injury of head, initial encounter (principal); S00.11XA Contusion of right eyelid and periocular area, initial encounter; W19.XXXA Unspecified fall, initial encounter; R21 Rash and other nonspecific skin eruption; R29.6 Repeated falls; Z72.89 Other problems related to lifestyle; Z63.79 Other stressful life events affecting family and household; Z91.81 History of falling; Z79.899 Other long term (current) drug therapy; Y93.9 Activity, unspecified; Y92.9 Unspecified place or not applicable; Y99.9 Unspecified external cause status
CPT/HCPCS: 36415; 70450; 70480; 80048; 80076; 82077; 83735; 84443; 84484; 85025; 85610; 93005; 96374; 99284; J2405

== ENCOUNTER 2023-03-08 10:19 | Emergency (ER) | payer OTHER, SELFPAY ==
[2023-03-08 10:24] VITALS: BP 111/75; PULSE 70; RESP 18; TEMP 36.3; O2SAT 100; BMI 21.6
--- NOTE | 2023-03-08 12:58 | ED.GENADULT ---
HPI - General Adult General Chief complaint: General Medical Stated complaint: L jaw pain, swollen Time Seen by Provider: 03/08/23 11:31 Source: patient and RN notes reviewed Mode of arrival: ambulatory Limitations: no limitations History of Present Illness HPI narrative: 47-year-old female, with a history of hypothyroidism, presenting to the emergency department today with complaints of left-sided jaw pain and swelling since today. Patient states that she woke up with this. Denies any history of any dental fractures or problems with teeth past. Denies any dental pain patient called her dentist who is unable to the see her until the swelling goes down. Denies any fevers or chills. No other complaints or concerns at this time. MD complaint: left facial pain, swelling Onset (ago): hour(s) Severity: moderate Pain Consistency: constant Relieving factors: none Exacerbating factors: none Associated symptoms: denies other symptoms Treatments prior to arrival: none Related Data Home Medications Medication Instructions Recorded Confirmed gabapentin 300 mg capsule 600 mg PO BEDTIME 12/23/20 06/19/22 ascorbate calcium (vitamin C) 500 1,000 mg PO DAILY 06/16/21 06/19/22 mg tablet Previous Rx's Medication Instructions Recorded Tirosint 112 mcg capsule 112 mcg PO DAILY #90 caps 06/19/22 (levothyroxine) amoxicillin 875 mg-potassium 1 tab PO BID 7 days #14 tabs 03/08/23 clavulanate 125 mg tablet ibuprofen 600 mg tablet 600 mg PO Q6H PRN pain #30 tabs 03/08/23 Allergies Allergy/AdvReac Type Severity Reaction Status Date / Time corn Allergy Intermediate Swelling Verified 03/08/23 10:24 heparin [HEPARIN] Allergy Intermediate ILL Verified 03/08/23 10:24 PLATELETS UNKNOWN heparin (porcine) Allergy Intermediate unkn Verified 03/08/23 10:24 hydrocodone [Vicodin] Allergy Intermediate Hallucinati Verified 03/08/23 10:24 ons tizanidine [From ZANAFLEX] Allergy Intermediate WELTS Verified 03/08/23 10:24 APPEAR ALL OVER BODY tramadol [Ultram] Allergy Intermediate welts Verified 03/08/23 10:24 wheat Allergy Intermediate Swelling Verified 03/08/23 10:24 hydromorphone [Dilaudid] Allergy Mild cold sweats Verified 03/08/23 10:24 levothyroxine sodium Allergy Mild Nausea Verified 03/08/23 10:24 meperidine [From DEMEROL] Allergy Mild n/a Verified 03/08/23 10:24 acetaminophen [From PERCOCET] AdvReac Intermediate UPSET/AGITA Verified 03/08/23 10:24 MICHAEL oxycodone [From PERCOCET] AdvReac Intermediate UPSET/AGITA Verified 03/08/23 10:24 MICHAEL vinegar Allergy Intermediate Swelling Uncoded 03/08/23 10:24 Review of Systems Review of Systems: Constitutional: No Weight loss, No Fever, No Chills ENT/Mouth: No Ear Pain, No Nasal Congestion, No Sinus Pain, No Hoarseness, No sore throat, No Rhinorrhea, No Swallowing Difficulty Cardiovascular: No Chest Pain, No SOB Respiratory: No Cough, No Sputum, No Wheezing Gastrointestinal: No Nausea, No Vomiting, No Diarrhea, No Constipation, No Abdominal pain Genitourinary: No Dysuria, No Urinary Frequency, No Hematuria, No Urinary Incontinence/retention, No Urgency, No Flank Pain Musculoskeletal: No joint pain, No Myalgias, No Joint Swelling Skin: No Skin Lesions, No rash Neuro: No Weakness, No Numbness, No Paresthesias Yes all other systems are reviewed and are negative Constitutional: Constitutional: Reports as per [facility] Past Medical History Medical History Abdominal wall hernia Acquired hypothyroidism Allergies Annual physical exam Colon polyps Depression with anxiety Fatigue Head injury Hypothyroidism Knee pain, left LOC (loss of consciousness) Nephrolithiasis Retinal detachment Seizure disorder Surgical History H/O: hysterectomy History of back surgery History of section History of kidney stones History of lumbar fusion History of thyroidectomy History of tonsillectomy Hx of removal of neck cyst S/P lumbar laminectomy Family History Family History Father No problems noted. Mother No problems noted. Brother Substance use disorder Son No problems noted. Daughter No problems noted. Daughter No problems noted. Daughter No problems noted. Social History Social History Housing: House Alcohol intake: never Patient Tobacco Use Status: Former Tobacco user Quit Date: 2 years ago e-Cigarette/Vaping Use: Never Used Substance Use Type: Marijuana Current occupational status: disabled Cognitive needs: No Hearing needs: No Vision needs: Yes Physical Exam ED Vital Signs: Vital Signs - 24 hr 03/08/23 10:24 03/08/23 13:10 Temperature 97.3 F Pulse Rate 70 50 Respiratory Rate 18 18 Blood Pressure 111/75 138/79 Pulse Oximetry 100 99 Oxygen Delivery Method Room Air Room Air BMI result Body Mass Index 21.6 Const Other: Obvious left-sided facial edema, no overlying erythema General: cooperative, comfortable and no acute distress Orientation/consciousness: patient oriented x3 Limitations: no limitations HENMT Other: Left lower gumline with mild erythema and tenderness palpation inferior to tooth 20. Mild fluctuance in this area. No oral pharyngeal edema noted. Airways patent, no trismus or drooling. Head: Yes normal to inspection, Yes normocephalic and Yes atraumatic Ears: hearing grossly normal bilaterally General nose exam: Normal external nose present Face and sinus: Yes normal facial exam Mouth: Normal oral and palatal mucosa present, oropharynx normal and moist mucous membranes Teeth and gingiva: dentition normal Throat: Yes posterior oropharynx normal Eyes General: appearance normal, both eyes and all related structures Eyelids: Yes eyelids normal Conjunctivae: conjunctivae normal Sclerae: sclerae normal Pupils: Equal, round and reactive pupils present EOM: EOMs intact bilaterally Neck Neck: Yes normal visual inspection, Yes full ROM and Yes no lymphadenopathy Lymphatic: no lymphadenopathy noted Chest Chest palpation & inspection: normal inspection of the chest Resp Effort & Inspection: normal respiratory effort and able to speak in complete sentences Auscultation: clear to auscultation bilaterally, no crackles, no rales, no rhonchi and no wheezes Cardio Rate: regular rate Rhythm: regular rhythm Heart sounds: S1 normal heart sound present and S2 normal heart sound present GI Inspection: Yes normal to inspection Skin General skin exam: no rashes or lesions noted Trauma: no lacerations or abrasions Wounds: no wounds Neuro General: patient oriented x3 and moves all extremities Cranial nerves: Yes Equal, round and reactive pupils present Extrem General: Yes normal to inspection Right upper extremity: normal to inspection Left upper extremity: normal to inspection Right lower extremity: normal to inspection Left lower extremity: normal to inspection Medications Administered Discontinued Medications Generic Name Dose Route Start Last Admin Trade Name Freq PRN Reason Stop Dose Admin Lidocaine HCl 5 ml 03/08/23 13:02 03/08/23 13:07 Lidocaine Hcl 1 % Mpf 5 Ml Vial INFILTRATI 03/08/23 13:03 5 ml ONCE ONE Administration Procedures Nerve Block Nerve Block 1: Time out performed: Yes Local Anesthetic: lidocaine 1% Amount of anesthesia used (mL): 3 Intraoral Nerve Block: inferior alveolar Procedure Successful: Yes Patient Tolerated Procedure: well Complications: none Additional Comments: Performed by Dr. Arriaza Medical Decision Making Medical Decision Making [facility] Narrative: 47-year-old female presenting to the emergency department for evaluation of left-sided facial pain and swelling since this morning. On examination patient has obvious left-sided jaw swelling, and tenderness palpation along the lower gumline with mild fluctuance around tooth 10. Patient is afebrile, all other vital signs within normal limits. Patient was seen and evaluated by Dr. Arriaza who performed a dental block and a incision and drainage. Blood expressed, no purulence drainage expressed. Patient tolerated procedure well without any complications or concerns. Patient discharged on Augmentin, and advised follow-up with dentist. Patient understands and agrees with plan. Differential Diagnosis Differential Diagnoses: The differential diagnosis associated with the presentation includes Dental abscess, dental decay, cellulitis Admission/Observation Consideration of admission/observation: Escalation of care including admission/observation considered Lab Data [facility] Lab Attestation statement: I reviewed the patient's lab results. External Record Review External record reviewed: Inpatient record, Office record, Outpatient record, Prior outpatient labs, Prior outpatient radiology, Primary care record and Outside ED record Discharge Plan Discharge Clinical Impression: Facial pain, Dental abscess Patient Disposition: Home, Self-Care Instructions: Dental Abscess (ED) Additional Instructions: We had performed a nerve block on your jaw and lanced the dental abscess you have. You need to follow up with your dentist. Take ibuprofen as prescribed as needed for your pain. Take full course of antibiotics, even if your feeling better. If any new or worsening symptoms occur please return for re-evaluation. Prescriptions: New amoxicillin-pot clavulanate 875-125 mg tablet 1 tab PO BID 7 Days Qty: 14 0RF ibuprofen 600 mg tablet 600 mg PO Q6H PRN (Reason: pain) Qty: 30 0RF No Action gabapentin 300 mg capsule 600 mg PO BEDTIME ascorbate calcium (vitamin C) 500 mg tablet 1,000 mg PO DAILY levothyroxine [Tirosint] 112 mcg capsule 112 mcg PO DAILY Qty: 90 3RF Stand Alone Forms: Work/School Release Interventions: ED Discharge Assessment Last Done: 03/08/23 13:48 Discharge Date/Time: 03/08/23 13:48
[2023-03-08] MEDS: Lidocaine HCl 1 % MPF 5 ML VIAL INFILTRATI (13:07)
[2023-03-08 13:10] VITALS: BP 138/79; PULSE 50; RESP 18; O2SAT 99
== END 2023-03-08 13:48 | disposition home or self-care (01) ==
PROVIDERS: Emergency Provider Emergency Medicine; PCP Internal Medicine
DX: K04.7 Periapical abscess without sinus (principal); R68.84 Jaw pain; Z87.891 Personal history of nicotine dependence
CPT/HCPCS: 41800; 64400; 99283; 99284

== ENCOUNTER 2023-03-16 14:48 | Outpatient (REF) | payer OTHER, SELFPAY ==
[2023-03-16 17:39] LABS: C Reactive Protein < 0.10 mg/dL (< or = 0.50)
[2023-03-16 17:41] LABS: Rheumatoid Factor < 13.0 IU/mL (<15.0)
[2023-03-20 05:53] LABS: Lyme Abs Screen <0.90 index
[2023-03-20 19:04] LABS: Anti Nuclear Antibody Screen POSITIVE (NEGATIVE)
== END 2023-03-16 14:49 | disposition home or self-care (01) ==
LOC: HO.HMGCLDS 14:48
PROVIDERS: PCP Internal Medicine; Visit Provider Internal Medicine
DX: L30.8 Other specified dermatitis (principal)
CPT/HCPCS: 36415; 86038; 86039; 86140; 86431; 86617; 86618

== ENCOUNTER 2023-04-05 12:14 | Outpatient (REF) | payer OTHER, SELFPAY | END 2023-04-05 12:15 | disposition home or self-care (01) | LOC: HO.HMGCX 12:14 | PROVIDERS: PCP Internal Medicine; Visit Provider Internal Medicine | DX: R60.0 Localized edema (principal) | CPT/HCPCS: 93971 ==

== ENCOUNTER 2023-07-03 15:03 | Outpatient (AMB) | payer BC, MEDICAID, SELFPAY ==
[2023-07-03 15:06] VITALS: BP 120/68; PULSE 78; TEMP 37; O2SAT 97; BMI 21.3
--- NOTE | 2023-07-03 15:06 | MHC.OFFVIS ---
Intake Vital Signs 07/03/23 15:06 Height 5 ft 9 in Weight 144 lb 2.917 oz BMI 21.3 BP 120/68 Blood Pressure Location Rt brachial Position Sitting Pulse 78 Pulse Source Pulse Oximeter Temp 98.6 F Temp Source Skin Pulse Oximetry (%) 97 Intake Visit Reasons: Abnormal lab Intake Note: New pt presents today for abnormal lab consult. C/o pain everywhere [employer] Tender Required: No Accompanied by: Self / Same As Patient Allergies corn Allergy (Intermediate, Verified 07/03/23 15:08) Swelling heparin [HEPARIN] Allergy (Intermediate, Verified 07/03/23 15:08) ILL PLATELETS UNKNOWN heparin (porcine) Allergy (Intermediate, Verified 07/03/23 15:08) unkn hydrocodone [Vicodin] Allergy (Intermediate, Verified 07/03/23 15:08) Hallucinations tizanidine [From ZANAFLEX] Allergy (Intermediate, Verified 07/03/23 15:08) WELTS APPEAR ALL OVER BODY tramadol [Ultram] Allergy (Intermediate, Verified 07/03/23 15:08) welts wheat Allergy (Intermediate, Verified 07/03/23 15:08) Swelling hydromorphone [Dilaudid] Allergy (Mild, Verified 07/03/23 15:08) cold sweats levothyroxine sodium Allergy (Mild, Verified 07/03/23 15:08) Nausea meperidine [From DEMEROL] Allergy (Mild, Verified 07/03/23 15:08) n/a acetaminophen [From PERCOCET] Adverse Reaction (Intermediate, Verified 07/03/23 15:08) UPSET/AGITATED oxycodone [From PERCOCET] Adverse Reaction (Intermediate, Verified 07/03/23 15:08) UPSET/AGITATED vinegar Allergy (Intermediate, Uncoded 07/03/23 15:08) Swelling Medication List - Last Reconciled 07/03/23 by Marion Foy MD ascorbate calcium (vitamin C) 1,000 mg PO DAILY Tirosint (levothyroxine) 112 mcg PO DAILY NS topiramate 0 mg PO HPI HPI Comments History of Present Illness Details This is a 48-year-old female who presents for evaluation of positive AMERICA. 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 She also has history of vitiligo. She is unaware of any family history of autoimmune rheumatic disease. Patient states that she gets diffuse joint pain especially in her back where she had multiple lower back surgeries, she also gets intermittent aching in her knees as well as cracking. She also is having rashes that are intermittently itchy on both legs. Denies any other skin rashes. Has mild oral dryness. She denies any history of DVT/PE. Patient had 4 pregnancies and 1 . She denies any swollen joints. Denies mouth ulcers. Denies any blood or froth in urine [facility] Medical History Vitiligo Abdominal wall hernia Knee pain, left Annual physical exam LOC (loss of consciousness) Head injury Fatigue Acquired hypothyroidism Allergies Colon polyps Depression with anxiety Retinal detachment Nephrolithiasis Hypothyroidism Seizure disorder Surgical History H/O: hysterectomy History of lumbar fusion S/P lumbar laminectomy History of kidney stones History of back surgery Hx of removal of neck cyst History of tonsillectomy History of thyroidectomy History of section Family History Father Cancer Mother No problems noted. Brother Substance use disorder Son No problems noted. Daughter No problems noted. Daughter No problems noted. Daughter No problems noted. Social History Housing: House Alcohol intake: current Alcohol intake frequency: other Patient Tobacco Use Status: Current everyday Tobacco user Cigarette Packs Per Day: 10 e-Cigarette/Vaping Use: Never Used Substance Use Type: Marijuana Current occupational status: employed Cognitive needs: No Hearing needs: No Vision needs: Yes Female Reproductive History Menstrual Total pregnancies: 4 Ab induced: 1 Review of Systems Const Denies fever(s) Eyes Denies dry eyes ENT Reports dry mouth Musc Reports back pain and Reports arthralgias Skin/Breast Reports pruritus and Reports rash Physical Exam Vital Signs: Last Vital Signs Temp 98.6 F 07/03/23 15:06 Pulse 78 07/03/23 15:06 BP 120/68 07/03/23 15:06 Pulse Ox 97 07/03/23 15:06 BMI result Body Mass Index 21.3 Const General: cooperative, healthy appearing and comfortable Nutritional Appearance: average body habitus and well nourished Orientation/consciousness: patient oriented x3 Limitations: no limitations HEENT Head: Yes normocephalic and Yes atraumatic Mouth: moist mucous membranes Resp Effort & Inspection: normal respiratory effort and able to speak in complete sentences Auscultation: clear to auscultation bilaterally Cardio Rate: regular rate Rhythm: regular rhythm Skin Other: Signs of venous stasis of both lower extremities Neuro General: patient oriented x3 Extrem Other: Osteoarthritic changes of both hands with Maritza's and Heberden's nodes. No active synovitis Normal nailfold capillaroscopy Normal range of motion of both elbows, shoulders without pain Bilateral knee crepitus without pain with full flexion and extension Assessment & Plan Assessment & Plan (1) AMERICA positive: Code(s): R76.8 - Other specified abnormal immunological findings in serum Plan: This is a 48-year-old female who presents for evaluation of positive AMERICA. She has history of papillary thyroid carcinoma s/p resection, history of vitiligo. She also has generalized osteoarthritis affecting her hands, spine and knees. I do not see any evidence of an autoimmune rheumatic disease. Discussed with patient that about 20% of the population can have a positive AMERICA without evidence of an autoimmune rheumatic disease. Discussed features of autoimmune rheumatic disease that warrant re-evaluation. Patient understands Follow-up as needed Plan I spent 30 minutes reviewing patient's chart, evaluating patient, counseling patient and documenting in the chart Coding Level of Care Code New Pt Level 3 (92000) Diagnoses AMERICA positive R76.8
== END 2023-07-03 15:44 | disposition home or self-care (01) ==
PROVIDERS: PCP Internal Medicine; Visit Provider Student in an Organized Health Care Education/Training Program
DX: R76.8 Other specified abnormal immunological findings in serum (principal)
CPT/HCPCS: 99203

== ENCOUNTER → 2023-07-03 15:03 | Outpatient (BNVA) | payer OTHER, SELFPAY | PROVIDERS: PCP Internal Medicine; Visit Provider Student in an Organized Health Care Education/Training Program ==

== ENCOUNTER 2023-08-15 09:25 | Outpatient (AMB) | payer MEDICARE, MEDICAID, SELFPAY ==
--- NOTE | 2023-08-15 09:32 | MHC.OFFVIS ---
Intake Vital Signs 08/15/23 09:34 Height 5 ft 9 in Weight 145 lb BMI 21.4 BP 91/57 L Blood Pressure Location Lt brachial Position Sitting Pulse 64 Intake Visit Reasons: Colonoscopy Screening Intake Note: Patient new consult for 2nd pre colonoscopy. Patient cc: nauseas, abdominal pain with bloating, denies any other GI issues. Training Director Required: No Accompanied by: Self / Same As Patient Allergies corn Allergy (Intermediate, Verified 08/15/23 09:31) Swelling heparin [HEPARIN] Allergy (Intermediate, Verified 08/15/23 09:31) ILL PLATELETS UNKNOWN heparin (porcine) Allergy (Intermediate, Verified 08/15/23 09:31) unkn hydrocodone [Vicodin] Allergy (Intermediate, Verified 08/15/23 09:31) Hallucinations tizanidine [From ZANAFLEX] Allergy (Intermediate, Verified 08/15/23 09:31) WELTS APPEAR ALL OVER BODY tramadol [Ultram] Allergy (Intermediate, Verified 08/15/23 09:31) welts wheat Allergy (Intermediate, Verified 08/15/23 09:31) Swelling hydromorphone [Dilaudid] Allergy (Mild, Verified 08/15/23 09:31) cold sweats levothyroxine sodium Allergy (Mild, Verified 08/15/23 09:31) Nausea meperidine [From DEMEROL] Allergy (Mild, Verified 08/15/23 09:31) n/a acetaminophen [From PERCOCET] Adverse Reaction (Intermediate, Verified 08/15/23 09:31) UPSET/AGITATED oxycodone [From PERCOCET] Adverse Reaction (Intermediate, Verified 08/15/23 09:31) UPSET/AGITATED vinegar Allergy (Intermediate, Uncoded 07/03/23 15:08) Swelling Medication List - Last Reconciled 08/15/23 by DAXA Avila-Ev ascorbate calcium (vitamin C) 1,000 mg PO DAILY Tirosint (levothyroxine) 112 mcg PO DAILY NS topiramate 0 mg PO HPI HPI Comments History of Present Illness Details A 48 y/o female referred for colonoscopy She had previous colonoscopy 7 years ago for abdominal pain- cancerous polyp -[facility]- hx of 28 surgeries- back surgery- cataract- Appetite is great- she does abdominal massage- has many food allergies- She has a normal bowel most days- Spinal cord stimulator- No nausea, vomiting, hematemesis, hematochezia fever or chills PFSH Medical History Vitiligo Abdominal wall hernia Knee pain, left Annual physical exam LOC (loss of consciousness) Head injury Fatigue Acquired hypothyroidism Allergies Colon polyps Depression with anxiety Retinal detachment Nephrolithiasis Hypothyroidism Seizure disorder Surgical History H/O: hysterectomy History of lumbar fusion S/P lumbar laminectomy History of kidney stones History of back surgery Hx of removal of neck cyst History of tonsillectomy History of thyroidectomy History of section Family History Father Cancer Mother No problems noted. Brother Substance use disorder Son No problems noted. Daughter No problems noted. Daughter No problems noted. Daughter No problems noted. Social History Housing: House Alcohol intake: current Alcohol intake frequency: other Patient Tobacco Use Status: Current everyday Tobacco user Cigarette Packs Per Day: 10 e-Cigarette/Vaping Use: Never Used Substance Use Type: Marijuana Current occupational status: employed Cognitive needs: No Hearing needs: No Vision needs: Yes Review of Systems Const All systems reviewed & are unremarkable except as noted in HPI and below Card Denies chest pain and Denies dyspnea Resp Denies dyspnea GI Denies abdominal pain and Reports GI cramping (resolves after BM) Psych Reports anxiety Physical Exam Vital Signs: Last Vital Signs Pulse 64 08/15/23 09:34 BP 91/57 L 08/15/23 09:34 BMI result Body Mass Index 21.4 Const General: cooperative, healthy appearing, comfortable, no acute distress and anxious Orientation/consciousness: patient oriented x3 Limitations: no limitations Eyes Sclerae: sclerae normal Resp Effort & Inspection: normal respiratory effort and able to speak in complete sentences Auscultation: clear to auscultation bilaterally, no rales, no rhonchi and no wheezes Cardio Rate: regular rate Rhythm: regular rhythm Heart sounds: S1 normal heart sound present and S2 normal heart sound present GI Palpation (GI): Soft to palpation and nontender Auscultation: normal bowel sounds Skin General skin exam: no rashes or lesions noted Neuro General: patient oriented x3 Extrem General: Yes full ROM Psych Appearance: well kempt Mental Status: mental status grossly normal Speech and movement: Pressured speech present Affect: Anxious affect present Attitude: cooperative Thought process: Normal thought process present Thought content: Normal thought content present Insight: Good insight present (Psych) Judgement: Good judgement present (Psych) Assessment & Plan Assessment & Plan (1) Colon polyps: Comment: 2016, due for repeat colonoscopy Code(s): K63.5 - Polyp of colon Plan Spinal cord stimulator-in place colonoscopy- MG- Orders: Orders Colonoscopy - GI Use Only Today K63.5 - Polyp of colon Medications: New polyethylene glycol 3350 (Miralax) Take as directed by mouth the day before your procedure. 238 grams PO ONCE PRN 238 grams 0RF laxative effect 1 day bisacodyl (Dulcolax (bisacodyl)) Day before procedure, prep day Take 4 tablets by mouth upon awakening followed by large glass of water 20 mg (4 x 5 mg) PO ONCE 4 tabs 0RF colonoscopy prep 1 day Z12.11 - Encounter for screening for malignant neoplasm of colon Patient Instructions: Spinal cord stimulator- Polyp surveillance colonoscopy- MG Coding Level of Care Code New Pt Level 3 (91655) Diagnoses Colon polyps K63.5 Time Spent (min) 30
[2023-08-15 09:34] VITALS: BP 91/57; PULSE 64; BMI 21.4
== END 2023-08-15 10:27 | disposition home or self-care (01) ==
PROVIDERS: PCP Internal Medicine; Visit Provider Physician Assistant
DX: K63.5 Polyp of colon (principal)
CPT/HCPCS: 99203

== ENCOUNTER → 2023-08-15 09:25 | Outpatient (BNVA) | payer MEDICARE, MEDICAID, SELFPAY | PROVIDERS: PCP Internal Medicine; Visit Provider Physician Assistant | DX: K63.5 Polyp of colon (principal) | CPT/HCPCS: 99202 ==

== ENCOUNTER 2023-10-23 10:33 | Outpatient (AMB) | payer MEDICARE, MEDICAID, SELFPAY ==
[2023-10-23 11:10] VITALS: BP 100/62; PULSE 64; O2SAT 97; BMI 22.1
--- NOTE | 2023-10-23 11:10 | MHC.PC.OV ---
Vital Signs 10/23/23 11:10 Height 5 ft 9 in Weight 150 lb BMI 22.1 BP 100/62 Blood Pressure Location Lt brachial Position Sitting Pulse 64 Pulse Source Pulse Oximeter Pulse Oximetry (%) 97 Oxygen Delivery Method Room Air Intake Visit Reasons: Follow up per Dr. He Allergies corn Allergy (Intermediate, Verified 10/23/23 11:11) Swelling heparin [HEPARIN] Allergy (Intermediate, Verified 10/23/23 11:11) ILL PLATELETS UNKNOWN heparin (porcine) Allergy (Intermediate, Verified 10/23/23 11:11) unkn hydrocodone [Vicodin] Allergy (Intermediate, Verified 10/23/23 11:11) Hallucinations tizanidine [From ZANAFLEX] Allergy (Intermediate, Verified 10/23/23 11:11) WELTS APPEAR ALL OVER BODY tramadol [Ultram] Allergy (Intermediate, Verified 10/23/23 11:11) welts wheat Allergy (Intermediate, Verified 10/23/23 11:11) Swelling hydromorphone [Dilaudid] Allergy (Mild, Verified 10/23/23 11:11) cold sweats levothyroxine sodium Allergy (Mild, Verified 10/23/23 11:11) Nausea meperidine [From DEMEROL] Allergy (Mild, Verified 10/23/23 11:11) n/a acetaminophen [From PERCOCET] Adverse Reaction (Intermediate, Verified 10/23/23 11:11) UPSET/AGITATED oxycodone [From PERCOCET] Adverse Reaction (Intermediate, Verified 10/23/23 11:11) UPSET/AGITATED vinegar Allergy (Intermediate, Uncoded 10/23/23 11:11) Swelling Medication List - Last Reconciled 10/23/23 by Yoko He MD ascorbate calcium (vitamin C) 1,000 mg PO DAILY naproxen 500 mg PO BID Tirosint (levothyroxine) 112 mcg PO DAILY NS Tobacco use date assessed: 10/23/23 Dental Screening Dental Screen Date: 10/23/23 Did you have a dental visit in the last 12 months?: Yes Did you have a dental problem in the last 6 months where you did not have access to dental care?: No Was dental information given to patient?: Patient has dentist HPI Follow up per Dr. He HPI Details Who presents for the follow-up of multiple ER and urgent care visits for chronic left upper abdominal wall pain positional constant since July getting worse over the last few weeks. Patient had extensive workup done including 2 CT of abdomen pelvis consistent with possible nephrolithiasis and right-sided hydronephrosis. Patient followed up with urologist 2 weeks ago and plan is to repeat renal ultrasound to follow-up on hydronephrosis. Patient was evaluated at [facility] ER 2 days ago and had another CT of the abdomen. Patient had incisional hernia repair with mesh placed in [facility] in 2018. Patient is concerned that mesh is causing her pain. Patient will have colonoscopy in December. She denies nausea vomiting fever chills dysuria change in bowel habits hematochezia melena. Patient has not been able to work or attend her school because of her pain. She has not interested in starting gabapentin. It caused drowsiness in the past.. [facility] Medical History (Updated 10/23/23 @ 15:43 by Yoko He MD) Vitiligo Abdominal wall hernia Knee pain, left Annual physical exam LOC (loss of consciousness) Head injury Fatigue Acquired hypothyroidism Allergies Colon polyps Depression with anxiety Retinal detachment Nephrolithiasis Hypothyroidism Seizure disorder Surgical History H/O: hysterectomy History of lumbar fusion S/P lumbar laminectomy History of kidney stones History of back surgery Hx of removal of neck cyst History of tonsillectomy History of thyroidectomy History of section Family History Father Cancer Mother No problems noted. Brother Substance use disorder Son No problems noted. Daughter No problems noted. Daughter No problems noted. Daughter No problems noted. Social History Housing: House Alcohol intake: current Alcohol intake frequency: other Patient Tobacco Use Status: Current someday Tobacco user Cigarette Packs Per Day: 3 e-Cigarette/Vaping Use: Never Used Substance Use Type: Marijuana Current occupational status: employed Cognitive needs: No Hearing needs: No Vision needs: Yes Questionnaire PHQ-9 Over the last 2 weeks, how often have you been bothered by any of the following problems? [id number] - PHQ-9 Billing: Patient declined-do not bill Source: Developed by Drs. Fredis Ballesteros, Luann Loredo, Xavier Marc and colleagues, with an educational luis from [employer]. Thrive Questionnaire Date Thrive assessed: 10/23/23 I am a: Patient What is your living situation today?: I have a place to live, but I am worried about losing it in the future Within the past 12 months, did the food you bought not last and you didn't have the money to get more?: Never true Within the past 12 months, did you worry whether your food would run out before you got money to buy more?: Never true Do you have trouble paying for medicines?: No Do you have trouble getting transportation to medical appointments?: No Do you have trouble paying your heating and electricity bill?: Yes Do you have trouble taking care of your child, family member or friend?: Yes Do you have trouble with day-to-day activities such as bathing, preparing meals, shopping, managing finances, etc.?: Yes Are you currently unemployed and looking for a job?: Yes Are you interested in more education?: Yes Please select the resources that you would like help with: Housing/Half-Way THRIVE Score: 2 AUDIT C Alcohol Use Questionnaire (AUDIT-C) 1. How often do you have a drink containing alcohol?: Monthly or less 2. How many drinks containing alcohol do you have on a typical day when you are drinking?: 1 or 2 3. How often do you have six or more drinks on one occasion?: Never Total Score: 1 JANINE-7 AMB Questionnaire JANINE-7 Date JANINE - 7 assessed: 10/23/23 Source: Developed by Drs. Fredis Ballesteros, Luann Loredo, Xavier Marc and colleagues, with an educational luis from [employer]. JANINE-7 Assessment Billing JANINE-7 Assessment Tool: pt declined-do not bill Review of Systems Const All systems reviewed & are unremarkable except as noted in HPI and below Reports no additional complaints Eyes Reports no additional complaints ENT Reports no additional complaints Card Reports no additional complaints Resp Reports no additional complaints GI Reports no additional complaints Reports no additional complaints Physical exam (Primary Care) Vital Signs: Last Vital Signs Pulse 64 10/23/23 11:10 BP 100/62 10/23/23 11:10 Pulse Ox 97 10/23/23 11:10 Oxygen Delivery Method Room Air 10/23/23 11:10 BMI result Body Mass Index 22.1 Tobacco/Smoking Status: Tobacco use Status Tobacco use date assessed 10/23/23 10/23/23 11:11 Patient Tobacco Use Status Current someday Tobacco 10/23/23 11:26 e-Cigarette/Vaping Use Never Used 10/23/23 11:11 Thrive Assessment: Date of Thrive Assessment Date Thrive assessed 10/23/23 10/23/23 12:02 Const General: no acute distress HENMT Head: Yes normal to inspection Face and sinus: Yes normal facial exam Neck Neck: Yes supple Cardio Rhythm: regular rhythm Heart sounds: S1 normal heart sound present and S2 normal heart sound present GI Inspection: Yes normal to inspection Palpation (GI): Soft to palpation, Tenderness to palpation present (GI) in the LUQ, no hernias, no masses and No Rebound tenderness present Percussion: Yes normal to percussion Auscultation: normal bowel sounds Assessment and Plan Assessment & Plan (1) Incisional hernia: Comment: s/p repair and mesh 2019 at [facility] [place] Code(s): K43.2 - Incisional hernia without obstruction or gangrene Plan: Patient will call surgeon and [facility] to schedule an appointment because increasing pain at the site of the surgery (2) Abdominal wall hernia: Comment: Referred to surgeon for evaluation Code(s): K43.9 - Ventral hernia without obstruction or gangrene (3) Nephrolithiasis: Comment: s/p lithotripsy Code(s): N20.0 - Calculus of kidney Plan: Follow-up with urology check report on the CT at [facility] 2 days ago Orders: Referrals General Surgery Referral K43.2 - Incisional hernia without obstruction or gangrene, K43.9 - Ventral hernia without obstruction or gangrene Coding Level of Care Code Est Pt Level 3 (85643) Diagnoses Incisional hernia K43.2 Abdominal wall hernia K43.9 Nephrolithiasis N20.0
== END 2023-10-23 15:08 | disposition home or self-care (01) ==
PROVIDERS: PCP Internal Medicine; Visit Provider Internal Medicine
DX: K43.2 Incisional hernia without obstruction or gangrene (principal); K43.9 Ventral hernia without obstruction or gangrene; N20.0 Calculus of kidney
CPT/HCPCS: 99213

== ENCOUNTER 2023-11-01 11:07 | Outpatient (AMB) | payer MEDICARE, MEDICAID, SELFPAY ==
[2023-11-01 11:09] VITALS: BP 120/80; PULSE 83; O2SAT 98; BMI 22.1
--- NOTE | 2023-11-01 11:09 | MHC.PC.OV ---
Vital Signs 11/01/23 11:09 Height 5 ft 9 in Weight 150 lb BMI 22.1 BP 120/80 Blood Pressure Location Lt brachial Position Sitting Pulse 83 Pulse Source Pulse Oximeter Pulse Oximetry (%) 98 Oxygen Delivery Method Room Air Intake Visit Reasons: Follow up flank pain Intake Note: Pt is here today for a follow up visit on abdominal pain. Allergies corn Allergy (Intermediate, Verified 11/01/23 11:12) Swelling heparin [HEPARIN] Allergy (Intermediate, Verified 11/01/23 11:12) ILL PLATELETS UNKNOWN heparin (porcine) Allergy (Intermediate, Verified 11/01/23 11:12) unkn hydrocodone [Vicodin] Allergy (Intermediate, Verified 11/01/23 11:12) Hallucinations tizanidine [From ZANAFLEX] Allergy (Intermediate, Verified 11/01/23 11:12) WELTS APPEAR ALL OVER BODY tramadol [Ultram] Allergy (Intermediate, Verified 11/01/23 11:12) welts wheat Allergy (Intermediate, Verified 11/01/23 11:12) Swelling hydromorphone [Dilaudid] Allergy (Mild, Verified 11/01/23 11:12) cold sweats levothyroxine sodium Allergy (Mild, Verified 11/01/23 11:12) Nausea meperidine [From DEMEROL] Allergy (Mild, Verified 11/01/23 11:12) n/a acetaminophen [From PERCOCET] Adverse Reaction (Intermediate, Verified 11/01/23 11:12) UPSET/AGITATED oxycodone [From PERCOCET] Adverse Reaction (Intermediate, Verified 11/01/23 11:12) UPSET/AGITATED vinegar Allergy (Intermediate, Uncoded 11/01/23 11:12) Swelling Tobacco use date assessed: 10/23/23 HPI Follow up flank pain HPI Details Patient presents for the follow-up of persistent left upper quadrant and epigastric abdominal pain. She has an appointment in [place] with the surgeon to evaluate for recurrent abdominal wall hernia question of reaction to implanted mesh. She was seen in the ER at [facility] last month had 2 CTs of the abdomen and pelvis showing punctate calcifications in both kidneys but no obstruction. Patient was seen by [facility] but would like to see 2nd opinion urologist because she is still concerned about kidney stones. [facility] Medical History (Updated 11/01/23 @ 12:16 by Yoko He MD) Vitiligo Abdominal wall hernia Knee pain, left Annual physical exam LOC (loss of consciousness) Head injury Fatigue Acquired hypothyroidism Allergies Colon polyps Depression with anxiety Retinal detachment Nephrolithiasis Hypothyroidism Seizure disorder Surgical History H/O: hysterectomy History of lumbar fusion S/P lumbar laminectomy History of kidney stones History of back surgery Hx of removal of neck cyst History of tonsillectomy History of thyroidectomy History of section Family History Father Cancer Mother No problems noted. Brother Substance use disorder Son No problems noted. Daughter No problems noted. Daughter No problems noted. Daughter No problems noted. Social History Housing: House Alcohol intake: current Alcohol intake frequency: other Patient Tobacco Use Status: Current someday Tobacco user Cigarette Packs Per Day: 3 e-Cigarette/Vaping Use: Never Used Substance Use Type: Marijuana Current occupational status: employed Cognitive needs: No Hearing needs: No Vision needs: Yes Questionnaire Thrive Questionnaire Date Thrive assessed: 10/23/23 AUDIT C Alcohol Use Questionnaire (AUDIT-C) 1. How often do you have a drink containing alcohol?: Monthly or less 2. How many drinks containing alcohol do you have on a typical day when you are drinking?: 1 or 2 3. How often do you have six or more drinks on one occasion?: Never Total Score: 1 JANINE-7 AMB Questionnaire JANINE-7 Date JANINE - 7 assessed: 10/23/23 Feeling nervous, anxious, or on edge: 1 = Several days Not being able to stop or control worryin = More than half the days Worrying too much about different things: 1 = Several days Trouble relaxin = More than half the days Being so restless that it is hard to sit still: 1 = Several days Becoming easily annoyed or irritable: 0 = Not at all Feeling afraid as if something awful might happen: 2 = More than half the days Total JANINE-7 score (0-4 normal; 5-9 mild; 10-14 moderate; 15-21 severe): 9 Source: Developed by Drs. Fredis Ballesteros, LuannXavier Tian and colleagues, with an educational luis from [employer]. Review of Systems Const All systems reviewed & are unremarkable except as noted in HPI and below Eyes Reports as per HPI ENT Reports no additional complaints Card Reports no additional complaints Resp Reports no additional complaints GI Reports no additional complaints Reports no additional complaints Physical exam (Primary Care) Vital Signs: Last Vital Signs Pulse 83 11/01/23 11:09 BP 120/80 11/01/23 11:09 Pulse Ox 98 11/01/23 11:09 Oxygen Delivery Method Room Air 11/01/23 11:09 BMI result Body Mass Index 22.1 Tobacco/Smoking Status: Tobacco use Status Tobacco use date assessed 10/23/23 11/01/23 11:09 Patient Tobacco Use Status Current someday Tobacco 11/01/23 11:09 e-Cigarette/Vaping Use Never Used 11/01/23 11:09 Thrive Assessment: Date of Thrive Assessment Date Thrive assessed 10/23/23 11/01/23 11:09 Const General: no acute distress HENMT Head: Yes normal to inspection Neck Neck: Yes no lymphadenopathy Resp Effort & Inspection: normal respiratory effort Auscultation: clear to auscultation bilaterally Cardio Rhythm: regular rhythm Heart sounds: S1 normal heart sound present and S2 normal heart sound present GI Inspection: Yes normal to inspection Palpation (GI): Soft to palpation, Tenderness to palpation present (GI) in the LUQ and No Rebound tenderness present Percussion: Yes normal to percussion Auscultation: normal bowel sounds Assessment and Plan Assessment & Plan (1) Abdominal pain: Comment: Left upper quadrant, abdominal pelvic CT at [place] in October 2023, consistent with moderate amount of stool in proximal colon, punctate left lower renal calcifications no obstruction Code(s): R10.9 - Unspecified abdominal pain Plan: Patient will see a surgeon at [place] to evaluate for complications of abdominal wall hernia repair question mesh reaction (2) Nephrolithiasis: Comment: s/p lithotripsy, abdominal pelvic at [facility] 10/24 punctate calcifications no obstruction, follow-up with [facility] urology Code(s): N20.0 - Calculus of kidney Plan: Patient requested a referral for 2nd opinion urology Orders: Referrals Urology Referral N20.0 - Calculus of kidney Coding Level of Care Code Est Pt Level 3 (60478) Diagnoses Abdominal pain R10.9 Nephrolithiasis N20.0
== END 2023-11-01 12:17 | disposition home or self-care (01) ==
PROVIDERS: PCP Internal Medicine; Visit Provider Internal Medicine
DX: R10.9 Unspecified abdominal pain (principal); N20.0 Calculus of kidney
CPT/HCPCS: 99213

== ENCOUNTER 2023-11-06 08:22 | Outpatient (REF) | payer MEDICARE, MEDICAID, SELFPAY ==
--- NOTE | ~2023-11-06 | US_ITS ---
EXAMINATION: US ABDOMEN COMPLETE CLINICAL INFORMATION: Abdominal pain. COMPARISON: CT abdomen and pelvis 10/13/2014. Renal ultrasound 09/29/2013. TECHNIQUE: Real-time imaging of the abdominal viscera. FINDINGS: PANCREAS: Limited. The visualized pancreatic head and body are normal in appearance. The remainder of the pancreas is obscured from visualization by the overlying bowel gas. ABDOMINAL AORTA: The proximal, mid, and distal segments are normal in caliber. INFERIOR VENA CAVA: Visualized portions are normal. LIVER: There is hepatomegaly, with a longitudinal span of 23.2 cm. The liver contour is normal. Parenchymal echogenicity is normal. No focal hepatic lesion. There is no intrahepatic biliary duct dilatation seen. GALLBLADDER: Normal. The gallbladder is physiologically distended without evidence of stones, sludge, polyps, wall thickening or pericholecystic fluid. COMMON BILE DUCT: Normal in caliber measuring 0.2 cm in diameter. RIGHT KIDNEY: No hydronephrosis. No renal calculi or focal parenchymal lesions. The kidney measures 10.0 cm in maximum dimension. There is mild pelviectasis, without tracy hydronephrosis. LEFT KIDNEY: No hydronephrosis. No renal calculi or focal parenchymal lesions. The kidney measures 11.0 cm in maximum dimension. There is mild pelviectasis, without tracy hydronephrosis. SPLEEN: Normal. The spleen measures 9.1 cm in maximum dimension. FREE FLUID: None. ADDITIONAL FINDINGS: No periumbilical hernia defect is seen. US/US abdomen complete IMPRESSION: 1. There is hepatomegaly. 2. Otherwise, unremarkable examination, with imaging of the pancreas technically limited.
== END 2023-11-06 08:23 | disposition home or self-care (01) ==
LOC: HO.US 08:22
PROVIDERS: PCP Internal Medicine; Visit Provider Registered Nurse
DX: R10.9 Unspecified abdominal pain (principal)
CPT/HCPCS: 76700

== ENCOUNTER 2023-12-10 10:52 | Emergency (ER) | payer MEDICARE, MEDICAID, SELFPAY ==
[2023-12-10 11:02] VITALS: BP 148/84; PULSE 96; O2SAT 98
[2023-12-10 11:20] VITALS: BP 114/65; PULSE 97; RESP 20; TEMP 37.3; O2SAT 97; BMI 21.4
--- NOTE | 2023-12-10 11:24 | ED.GENADULT ---
HPI - General Adult General Chief complaint: General Medical Stated complaint: WEAK,DIZZY,ABD PAIN,GARRIDO PER EMS Time Seen by Provider: 12/10/23 16:08 History of Present Illness HPI narrative: left without being seen by ED provider Related Data Home Medications Medication Instructions Recorded Confirmed ascorbate calcium (vitamin C) 500 1,000 mg PO DAILY 06/16/21 10/23/23 mg tablet naproxen 500 mg tablet 500 mg PO BID 10/23/23 10/23/23 Previous Rx's Medication Instructions Recorded Tirosint 112 mcg capsule 112 mcg PO DAILY #90 caps 07/03/23 (levothyroxine) Allergies Allergy/AdvReac Type Severity Reaction Status Date / Time corn Allergy Intermediate Swelling Verified 12/10/23 11:16 heparin [HEPARIN] Allergy Intermediate ILL Verified 12/10/23 11:16 PLATELETS UNKNOWN heparin (porcine) Allergy Intermediate unkn Verified 12/10/23 11:16 hydrocodone [Vicodin] Allergy Intermediate Hallucinati Verified 12/10/23 11:16 ons tizanidine [From ZANAFLEX] Allergy Intermediate WELTS Verified 12/10/23 11:16 APPEAR ALL OVER BODY tramadol [Ultram] Allergy Intermediate welts Verified 12/10/23 11:16 wheat Allergy Intermediate Swelling Verified 12/10/23 11:16 hydromorphone [Dilaudid] Allergy Mild cold sweats Verified 12/10/23 11:16 levothyroxine sodium Allergy Mild Nausea Verified 12/10/23 11:16 meperidine [From DEMEROL] Allergy Mild n/a Verified 12/10/23 11:16 acetaminophen [From PERCOCET] AdvReac Intermediate UPSET/AGITA Verified 12/10/23 11:16 MICHAEL oxycodone [From PERCOCET] AdvReac Intermediate UPSET/AGITA Verified 12/10/23 11:16 MICHAEL vinegar Allergy Intermediate Swelling Uncoded 11/01/23 11:12 PMFSH Past Medical History Medical History (Updated 12/10/23 @ 22:55 by DAXA Arredondo) Vitiligo Abdominal wall hernia Knee pain, left Annual physical exam LOC (loss of consciousness) Head injury Fatigue Acquired hypothyroidism Allergies Colon polyps Depression with anxiety Retinal detachment Nephrolithiasis Hypothyroidism Seizure disorder Surgical History H/O: hysterectomy History of lumbar fusion S/P lumbar laminectomy History of kidney stones History of back surgery Hx of removal of neck cyst History of tonsillectomy History of thyroidectomy History of section Family History Family History Father Cancer Mother No problems noted. Brother Substance use disorder Son No problems noted. Daughter No problems noted. Daughter No problems noted. Daughter No problems noted. Social History Social History Housing: House Alcohol intake: current Alcohol intake frequency: other Patient Tobacco Use Status: Current someday Tobacco user Cigarette Packs Per Day: 3 e-Cigarette/Vaping Use: Never Used Substance Use Type: Marijuana Advance Directives: No Advance Directives Information Provided: No Current occupational status: employed Cognitive needs: No Hearing needs: No Vision needs: Yes Physical Exam ED Vital Signs: Vital Signs - 24 hr 12/10/23 11:20 Temperature 99.2 F Pulse Rate 97 Respiratory Rate 20 Blood Pressure 114/65 Pulse Oximetry 97 Oxygen Delivery Method Room Air BMI result Body Mass Index 21.4 Course Course Course Narrative: RME: 48 yold female with pmh of kidney stones, hernia mesh presents the ED for abdominal pain, dyysura, increase urine frequency, diarrhea, generalized bodyaches, and headache. labs and UA ordered. Patient to be evaluated by ED provider Discharge Plan Discharge Clinical Impression: Abdominal pain Patient Disposition: Left W/O Completing Treatment Prescriptions: No Action levothyroxine [Tirosint] 112 mcg capsule 112 mcg PO DAILY Qty: 90 3RF ascorbate calcium (vitamin C) 500 mg tablet 1,000 mg PO DAILY naproxen 500 mg tablet 500 mg PO BID Discharge Date/Time: 12/10/23 17:52
== END 2023-12-10 17:52 | disposition left against medical advice (07) ==
LOC: HO.ED 17:40
PROVIDERS: Emergency Provider Emergency Medicine
DX: R10.9 Unspecified abdominal pain (principal); Z87.442 Personal history of urinary calculi
CPT/HCPCS: 99281

== ENCOUNTER 2023-12-17 09:20 | Outpatient (AMB) | payer BC, MEDICAID, SELFPAY ==
--- NOTE | 2023-12-17 09:27 | A.OFFPC_ITS ---
Vital Signs 12/17/23 09:28 Height 5 ft 9 in Weight 154 lb BMI 22.7 BP 120/76 Blood Pressure Location Lt brachial Position Sitting Pulse 87 Pulse Source Pulse Oximeter Pulse Oximetry (%) 98 Oxygen Delivery Method Room Air Intake Visit Reasons: Annual PE Intake Note: Pt is here today for PE. Allergies corn Allergy (Intermediate, Verified 12/17/23 09:32) Swelling heparin [HEPARIN] Allergy (Intermediate, Verified 12/17/23 09:32) ILL PLATELETS UNKNOWN heparin (porcine) Allergy (Intermediate, Verified 12/17/23 09:32) unkn hydrocodone [Vicodin] Allergy (Intermediate, Verified 12/17/23 09:32) Hallucinations tizanidine [From ZANAFLEX] Allergy (Intermediate, Verified 12/17/23 09:32) WELTS APPEAR ALL OVER BODY tramadol [Ultram] Allergy (Intermediate, Verified 12/17/23 09:32) welts wheat Allergy (Intermediate, Verified 12/17/23 09:32) Swelling hydromorphone [Dilaudid] Allergy (Mild, Verified 12/17/23 09:32) cold sweats levothyroxine sodium Allergy (Mild, Verified 12/17/23 09:32) Nausea meperidine [From DEMEROL] Allergy (Mild, Verified 12/17/23 09:32) n/a acetaminophen [From PERCOCET] Adverse Reaction (Intermediate, Verified 12/17/23 09:32) UPSET/AGITATED oxycodone [From PERCOCET] Adverse Reaction (Intermediate, Verified 12/17/23 09:32) UPSET/AGITATED vinegar Allergy (Intermediate, Uncoded 12/17/23 09:32) Swelling Medication List - Last Reconciled 12/17/23 by Yoko He MD ascorbate calcium (vitamin C) 1,000 mg PO DAILY naproxen 500 mg PO BID sulfamethoxazole-trimethoprim 800-160 mg 1 tab PO BID tamsulosin 0.4 mg PO BEDTIME Tirosint (levothyroxine) 112 mcg PO DAILY NS Tobacco use date assessed: 12/17/23 Dental Screening Dental Screen Date: 12/17/23 Did you have a dental visit in the last 12 months?: Yes Did you have a dental problem in the last 6 months where you did not have access to dental care?: No Was dental information given to patient?: Patient has dentist HPI Annual PE HPI Details Patient presents for PE. She complains of persistent left lower back and flank pain radiating to left side lower abdomen and bladder burning sensation since October. Patient has been multiple times to [facility] ER and had a CT of the abdomen is consistent with nonobstructive nephrolithiasis . patient has been diagnosed with recurrent UTIs and has been taking Bactrim for the last week. She reports chills, night sweats, chronic nausea, decreased appetite. She was seen by [facility] and was told that she didnot require surgery. Patient is waiting for 2nd opinion urological consultation at [place] but it is not available until March. [facility] Medical History (Updated 12/17/23 @ 10:23 by Yoko He MD) Depression with anxiety Vitiligo Abdominal wall hernia Knee pain, left Annual physical exam LOC (loss of consciousness) Head injury Fatigue Acquired hypothyroidism Allergies Colon polyps Retinal detachment Nephrolithiasis Hypothyroidism Seizure disorder Surgical History H/O: hysterectomy History of lumbar fusion S/P lumbar laminectomy History of kidney stones History of back surgery Hx of removal of neck cyst History of tonsillectomy History of thyroidectomy History of section Family History Father Cancer Mother No problems noted. Brother Substance use disorder Son No problems noted. Daughter No problems noted. Daughter No problems noted. Daughter No problems noted. Social History Housing: House Alcohol intake: current Alcohol intake frequency: other Patient Tobacco Use Status: Current someday Tobacco user Cigarette Packs Per Day: 3 e-Cigarette/Vaping Use: Never Used Substance Use Type: Marijuana Current occupational status: employed Cognitive needs: No Hearing needs: No Vision needs: Yes Questionnaire Thrive Questionnaire Date Thrive assessed: 10/23/23 JANINE-7 AMB Questionnaire JANINE-7 Date JANINE - 7 assessed: 10/23/23 Source: Developed by Drs. Fredis Ballesteros, Luann Loredo, Xavier Marc and colleagues, with an educational luis from [employer]. Review of Systems Const All systems reviewed & are unremarkable except as noted in HPI and below Reports no additional complaints Eyes Reports no additional complaints ENT Reports no additional complaints Card Reports no additional complaints Resp Reports no additional complaints GI Reports no additional complaints Reports no additional complaints Musc Reports no additional complaints Physical exam (Primary Care) Vital Signs: Last Vital Signs Pulse 87 12/17/23 09:28 BP 120/76 12/17/23 09:28 Pulse Ox 98 12/17/23 09:28 Oxygen Delivery Method Room Air 12/17/23 09:28 BMI result Body Mass Index 22.7 Tobacco/Smoking Status: Tobacco use Status Tobacco use date assessed 12/17/23 12/17/23 09:33 Patient Tobacco Use Status Current someday Tobacco 12/17/23 09:33 e-Cigarette/Vaping Use Never Used 12/17/23 09:33 Thrive Assessment: Date of Thrive Assessment Date Thrive assessed 10/23/23 12/17/23 09:33 Const General: no acute distress HENMT Head: Yes normal to inspection Ears: hearing grossly normal bilaterally Face and sinus: Yes normal facial exam Mouth: Normal oral and palatal mucosa present Eyes General: appearance normal, both eyes and all related structures Neck Neck: Yes no lymphadenopathy and Yes supple Resp Effort & Inspection: normal respiratory effort Auscultation: clear to auscultation bilaterally Cardio Rhythm: regular rhythm Heart sounds: S1 normal heart sound present and S2 normal heart sound present GI Inspection: Yes normal to inspection Palpation (GI): Soft to palpation Percussion: Yes normal to percussion Auscultation: normal bowel sounds Other: There is tenderness in the left upper lumbar region and left flank, paraspinal tenderness in lower lumbar, straight leg rising 90 degrees bilaterally Assessment and Plan Assessment & Plan (1) Nephrolithiasis: Comment: s/p lithotripsy, abdominal pelvic at [facility] and [facility] 10/24 punctate calcifications no obstruction, follow-up with [facility] urology Code(s): N20.0 - Calculus of kidney Plan: Patient was advised to have a 2nd opinion and [facility] or or [facility] urology but she declined. UA and culture will be checked while on Bactrim and tamsulosin is prescribed (2) Annual physical exam: Code(s): Z00.00 - Encounter for general adult medical examination without abnormal findings Plan: Patient declined mammogram and Pap smear because of the pain. She will return for fasting blood work. Patient is scheduled to have a colonoscopy in 2 days (3) Acquired hypothyroidism: Comment: f/u with endo Dr. Alejandra , needs to take brand name Tirosint Code(s): E03.9 - Hypothyroidism, unspecified Plan: Continue thyroid replacement follow-up with endocrinology (4) Lumbar radiculopathy: Comment: Status post stimulator placement 2018 Code(s): M54.16 - Radiculopathy, lumbar region Plan: Will obtain MRI of the lumbar spine to rule out disc herniation causing patient severe and chronic left-sided back pain (5) Frequent UTI: Code(s): N39.0 - Urinary tract infection, site not specified Plan: Check urinalysis and urine culture while on Bactrim, rechecked culture 1 week after the treatment to confirm the cure (6) Depression with anxiety: Comment: f/u with therapist , not interested in taking medications Code(s): F41.8 - Other specified anxiety disorders Plan: Patient was advised to follow-up with a therapist for chronic anxiety and depression. Orders: Orders Comprehensive [place]. Panel Fast Today M54.16 - Radiculopathy, lumbar region, N20.0 - Calculus of kidney, Z00.00 - Encounter for general adult medical examination without abnormal findings Lipid Panel Today M54.16 - Radiculopathy, lumbar region, N20.0 - Calculus of kidney, Z00.00 - Encounter for general adult medical examination without abnormal findings TSH reflex Free T4 Today M54.16 - Radiculopathy, lumbar region, N20.0 - Calculus of kidney, Z00.00 - Encounter for general adult medical examination without abnormal findings MR lumbar spine wo con Today M54.16 - Radiculopathy, lumbar region Complete Blood Count Auto Diff Today M54.16 - Radiculopathy, lumbar region, N20.0 - Calculus of kidney, Z00.00 - Encounter for general adult medical examination without abnormal findings IRON PROFILE Today M54.16 - Radiculopathy, lumbar region, N20.0 - Calculus of kidney, Z00.00 - Encounter for general adult medical examination without abnormal findings UA w Microscopic Today M54.16 - Radiculopathy, lumbar region, N20.0 - Calculus of kidney, Z00.00 - Encounter for general adult medical examination without abnormal findings Urine Culture Today M54.16 - Radiculopathy, lumbar region, N20.0 - Calculus of kidney, Z00.00 - Encounter for general adult medical examination without abnormal findings Erythrocyte Sedimentation Rate Today M54.16 - Radiculopathy, lumbar region, N20 .0 - Calculus of kidney, Z00.00 - Encounter for general adult medical examination without abnormal findings C Reactive Protein Today M54.16 - Radiculopathy, lumbar region, N20.0 - Calculus of kidney, Z00.00 - Encounter for general adult medical examination without abnormal findings Medications: New tamsulosin 0.4 mg PO BEDTIME 30 caps 1RF Coding Level of Care Code Est Pt Prev Care 40-64y(63923) Diagnoses Nephrolithiasis N20.0 Annual physical exam Z00.00 Acquired hypothyroidism E03.9 Lumbar radiculopathy M54.16 Frequent UTI N39.0 Depression with anxiety F41.8
[2023-12-17 09:28] VITALS: BP 120/76; PULSE 87; O2SAT 98; BMI 22.7
== END 2023-12-17 10:23 | disposition home or self-care (01) ==
PROVIDERS: PCP Internal Medicine; Visit Provider Internal Medicine
DX: N20.0 Calculus of kidney (principal); Z00.00 Encounter for general adult medical examination without abnormal findings; E03.9 Hypothyroidism, unspecified; M54.16 Radiculopathy, lumbar region; N39.0 Urinary tract infection, site not specified; F41.8 Other specified anxiety disorders
CPT/HCPCS: 99396

== ENCOUNTER 2023-12-17 10:07 | Outpatient (REF) | payer MEDICARE, MEDICAID, SELFPAY ==
[2023-12-17 12:00] LABS: Hematocrit 45.5 % (37.0-47.0); Hemoglobin 14.8 g/dl (12.0-16.0); Mean Corpuscular HGB Conc 32.5 g/dl (31.0-35.0); Mean Corpuscular Hemoglobin 31.8 pg (27.0-33.0); Mean Corpuscular Volume 97.8 fL (80.0-98.0); Mean Platelet Volume 9.9 fL (9.4-12.3); Platelet Count 412 X10*3/uL (160-400); Red Blood Count 4.65 X10*6/uL (4.20-5.50); Red Cell Distribution Width 12.6 % (11.0-16.0); White Blood Count 7.1 X10*3/uL (4.8-10.8)
[2023-12-17 12:35] LABS: Alanine Aminotransferase 20 U/L (0-31); Albumin Level 4.1 g/dL (3.5-5.0); Alkaline Phosphatase 57 U/L (39-117); Anion Gap 14 (12-20); Aspartate Amino Transferase 15 U/L (5-31); Bilirubin Total 0.2 mg/dL (0.0-1.0); Blood Urea Nitrogen 10 mg/dL (9-16); Calcium 9.4 mg/dL (8.4-10.2); Carbon Dioxide 25 mmol/L (22-29); Chloride 109 mmol/L (96-108); Cholesterol 206 mg/dL (<200); Estimated Glomerular Filt Rate > 60; Glucose Fasting 92 mg/dL (60-99); HDL Cholesterol 32 mg/dL (>40); Iron 63 mcg/dL (30-160); LDL Cholesterol Calculated 147 mg/dL (<100); Percent Iron Saturation 26 % (15-50); Potassium 5.1 mmol/L (3.3-5.1); Sodium 143 mmol/L (135-145); Total Iron Binding Capacity 238 mcg/dL (228-428); Total Protein 7.3 g/dL (6.5-8.0); Triglycerides 136 mg/dL (<150); Unsaturated Iron Binding 175 ug/dL
[2023-12-17 12:39] LABS: Erythrocyte Sedimentation Rate 23 MM/HR (0-20)
[2023-12-17 12:50] LABS: TSH reflex Free T4 1.93 uIU/mL (0.32-4.0)
[2023-12-17 13:14] LABS: Atypical Lymph Absolute Manual 0.1 x10*3/uL; Atypical Lymphs Percent Manual 1 % (0-6); Band Neutrophils Percent 4 % (3-5); Basophils Abs Manual 0.1 X10*3/uL (0.0-0.2); Basophils Percent Manual 2 % (0-2); Eosinophils Absolute Manual 0.1 X10*3/uL (0.0-0.4); Eosinophils Percent Manual 2 % (0-4); Lymphocytes Absolute Manual 1.5 X10*3/uL (1.2-4.9); Lymphocytes Percent Manual 21 % (20-40); Metamyelocytes Absolute 0.1 X10*3/uL; Metamyelocytes Percent 1 %; Monocytes Absolute Manual 0.1 X10*3/uL (0.1-1.2); Monocytes Percent Manual 1 % (2-11); Neutrophils Absolute Manual 5.1 X10*3/uL (2.0-8.3); Neutrophils Percent Manual 68 % (45-73)
[2023-12-17 13:16] LABS: Platelet Estimate SLIGHTLY INCREASED (NORMAL); Platelet Morphology Comment NORMAL; RBC Morphology NORMAL
[2023-12-17 13:50] LABS: Appearance Urine Clear; Color Urine Yellow; Glucose Urine UA Negative (Negative); Leukocyte Esterase Urine Negative (Negative); Nitrite Urine Negative (Negative); PH 6.5 (5.0-9.0); Specific Gravity - Urine <= 1.005 (1.005-1.025); Urine Blood Negative (Negative); Urine Ketones Negative (Negative); Urine Protein Negative (Neg-Trace)
[2023-12-17 13:57] LABS: Bacteria Urine None Seen (None Seen); Hyaline Casts Urine 0-2 /LPF (0-2); RBC Urine 0-2 /HPF (0-2); Squamous Epithelial Cell Urine 0-2 /HPF (0-2); WBC Urine 0-5 /HPF (0-5)
== END 2023-12-17 10:08 | disposition home or self-care (01) ==
LOC: HO.HMGCLDS 10:07
PROVIDERS: PCP Internal Medicine; Visit Provider Internal Medicine
DX: Z00.00 Encounter for general adult medical examination without abnormal findings (principal); E03.9 Hypothyroidism, unspecified; N20.0 Calculus of kidney; M54.16 Radiculopathy, lumbar region
CPT/HCPCS: 36415; 80053; 80061; 81001; 83540; 84443; 85007; 85025; 85027; 85652; 86140; 87086

== ENCOUNTER 2023-12-19 12:14 | Day surgery (SDC) | payer MEDICARE, MEDICAID, SELFPAY ==
--- NOTE | 2023-12-18 08:31 | P.CONAN_ITS ---
Documented by User: Michela Villa NP 12/18/23 08:32 HPI - Anesthesia Eval Consult details Narrative: 48yo F for Colonoscopy PMFSH Active Problems Active Problems: All Active Problems (Updated 12/17/23 @ 10:23 by Yoko He MD) Depression with anxiety (Acute) Frequent UTI (Acute) Lumbar radiculopathy (Acute) Abdominal pain (Acute) Nephrolithiasis (Acute) Incisional hernia (Acute) [place] positive (Acute) Colon polyps (Acute) Swelling of right upper extremity (Acute) Autoimmune dermatitis (Acute) Increased urinary frequency (Acute) Abdominal wall hernia (Acute) Knee pain, left (Acute) Annual physical exam (Acute) LOC (loss of consciousness) (Acute) Head injury (Acute) Fatigue (Acute) Hypothyroidism (Acute) Acquired hypothyroidism (Acute) Allergies (Acute) Past Medical History Medical History (Updated 12/17/23 @ 10:23 by Yoko He MD) Depression with anxiety Vitiligo Abdominal wall hernia Knee pain, left Annual physical exam LOC (loss of consciousness) Head injury Fatigue Acquired hypothyroidism Allergies Colon polyps Retinal detachment Nephrolithiasis Hypothyroidism Seizure disorder Family History Family History Father Cancer Mother No problems noted. Brother Substance use disorder Son No problems noted. Daughter No problems noted. Daughter No problems noted. Daughter No problems noted. Surgical History Surgical History H/O: hysterectomy History of lumbar fusion S/P lumbar laminectomy History of kidney stones History of back surgery Hx of removal of neck cyst History of tonsillectomy History of thyroidectomy History of section Social History Social History Housing: House Alcohol intake: current Alcohol intake frequency: other Patient Tobacco Use Status: Current everyday Tobacco user Cigarette Packs Per Day: 3 Cigarettes Per Day: 10 e-Cigarette/Vaping Use: Never Used Use of substances other than those prescribed or required for medical reasons: Yes Substance Use Type: Marijuana Substance Use Type Other:: cbd Are you DNR?: No Advance Directives: No Advance Directives Information Provided: Yes Current occupational status: employed Cognitive needs: No Hearing needs: No Vision needs: Yes Meds Allergies Allergy/AdvReac Type Severity Reaction Status Date / Time corn Allergy Intermediate Swelling Verified 12/17/23 09:32 heparin [HEPARIN] Allergy Intermediate ILL Verified 12/17/23 09:32 PLATELETS UNKNOWN heparin (porcine) Allergy Intermediate unkn Verified 12/17/23 09:32 hydrocodone [Vicodin] Allergy Intermediate Hallucinati Verified 12/17/23 09:32 ons tizanidine [From ZANAFLEX] Allergy Intermediate WELTS Verified 12/17/23 09:32 APPEAR ALL OVER BODY tramadol [Ultram] Allergy Intermediate welts Verified 12/17/23 09:32 wheat Allergy Intermediate Swelling Verified 12/17/23 09:32 hydromorphone [Dilaudid] Allergy Mild cold sweats Verified 12/17/23 09:32 levothyroxine sodium Allergy Mild Nausea Verified 12/17/23 09:32 meperidine [From DEMEROL] Allergy Mild n/a Verified 12/17/23 09:32 acetaminophen [From PERCOCET] AdvReac Intermediate UPSET/AGITA Verified 12/17/23 09:32 MICHAEL oxycodone [From PERCOCET] AdvReac Intermediate UPSET/AGITA Verified 12/17/23 09:32 MICHAEL vinegar Allergy Intermediate Swelling Uncoded 12/17/23 09:32 Home Medications Medication Instructions Recorded Confirmed Last Taken Type ascorbate calcium (vitamin C) 500 1,000 mg PO DAILY 06/16/21 12/17/23 Unknown History mg tablet naproxen 500 mg tablet 500 mg PO BID 10/23/23 12/17/23 Unknown History sulfamethoxazole 800 1 tab PO BID 12/17/23 12/17/23 Unknown History mg-trimethoprim 160 mg tablet topiramate 50 mg tablet 50 mg PO DAILY 12/18/23 Unknown History Assessment and Plan Assessment Anesthesia Assessment: Chart Reviewed Documented by User: Megan Diaz MD 12/19/23 13:13 [facility] Past Medical History Medical History (Updated 12/17/23 @ 10:23 by Yoko He MD) Depression with anxiety Vitiligo Abdominal wall hernia Knee pain, left Annual physical exam LOC (loss of consciousness) Head injury Fatigue Acquired hypothyroidism Allergies Colon polyps Retinal detachment Nephrolithiasis Hypothyroidism Seizure disorder Family History Family History Father Cancer Mother No problems noted. Brother Substance use disorder Son No problems noted. Daughter No problems noted. Daughter No problems noted. Daughter No problems noted. Family history of problems with anesthesia: No Surgical History Surgical History H/O: hysterectomy History of lumbar fusion S/P lumbar laminectomy History of kidney stones History of back surgery Hx of removal of neck cyst History of tonsillectomy History of thyroidectomy History of section History of Problems with Anesthesia: No Social History Social History Housing: House Alcohol intake: current Alcohol intake frequency: other Patient Tobacco Use Status: Current everyday Tobacco user Cigarette Packs Per Day: 3 Cigarettes Per Day: 10 e-Cigarette/Vaping Use: Never Used Use of substances other than those prescribed or required for medical reasons: Yes Substance Use Type: Marijuana Substance Use Type Other:: cbd Are you DNR?: No Advance Directives: No Advance Directives Information Provided: Yes Current occupational status: employed Cognitive needs: No Hearing needs: No Vision needs: Yes Meds Allergies Allergy/AdvReac Type Severity Reaction Status Date / Time corn Allergy Intermediate Swelling Verified 12/17/23 09:32 heparin [HEPARIN] Allergy Intermediate ILL Verified 12/17/23 09:32 PLATELETS UNKNOWN heparin (porcine) Allergy Intermediate unkn Verified 12/17/23 09:32 hydrocodone [Vicodin] Allergy Intermediate Hallucinati Verified 12/17/23 09:32 ons tizanidine [From ZANAFLEX] Allergy Intermediate WELTS Verified 12/17/23 09:32 APPEAR ALL OVER BODY tramadol [Ultram] Allergy Intermediate welts Verified 12/17/23 09:32 wheat Allergy Intermediate Swelling Verified 12/17/23 09:32 hydromorphone [Dilaudid] Allergy Mild cold sweats Verified 12/17/23 09:32 levothyroxine sodium Allergy Mild Nausea Verified 12/17/23 09:32 meperidine [From DEMEROL] Allergy Mild n/a Verified 12/17/23 09:32 acetaminophen [From PERCOCET] AdvReac Intermediate UPSET/AGITA Verified 12/17/23 09:32 MICHAEL oxycodone [From PERCOCET] AdvReac Intermediate UPSET/AGITA Verified 12/17/23 09:32 MICHAEL vinegar Allergy Intermediate Swelling Uncoded 12/17/23 09:32 Home Medications Medication Instructions Recorded Confirmed Last Taken Type ascorbate calcium (vitamin C) 500 1,000 mg PO DAILY 06/16/21 12/17/23 Unknown History mg tablet naproxen 500 mg tablet 500 mg PO BID 10/23/23 12/17/23 Unknown History sulfamethoxazole 800 1 tab PO BID 12/17/23 12/17/23 Unknown History mg-trimethoprim 160 mg tablet topiramate 50 mg tablet 50 mg PO DAILY 12/18/23 Unknown History Exam Airway Mallampati Class: II TM Dist: >3cm Neck ROM: Full Heart: rrr Lungs: cta Assessment and Plan Assessment Anesthesia Assessment: Anesthesia Plan Discussed Final Anesthetic Review Family History of Problems with Anesthesia: No History of Problems with Anesthesia: No NPO: Yes ASA Class: II Final Preanesthetic Review: No Changes in Pt Med Stat, Meds/Allgs Chart Reviewed and Consent Obtained/Reviewed Patient Risk: Low Procedure Risk: Low Anesthetic Plan Anesthetic Plan: MAC: Disposition: Standard PACU
[2023-12-19 12:47] VITALS: BMI 22.1
[2023-12-19 12:56] VITALS: BP 102/54; PULSE 57; RESP 16; TEMP 36.5; O2SAT 99
--- NOTE | 2023-12-19 13:02 | MHC.SHP ---
Pre-Procedural Eval Section A - 24 Hr Update-Section A only Date of Service: 12/19/23 Section B - Complete if H&P > 30 days Chief Complaint: Encounter for screening for malignant neoplasm of Relevant Family History (Specify if Yes): No Relevant Social History: Tobacco Use Present Medications: see Short Stay Collaborative assessment Medical History: Significant History (Depression with anxiety Vitiligo Abdominal wall hernia Knee pain, left Annual physical exam LOC (loss of consciousness) Head injury Fatigue Acquired hypothyroidism Allergies Colon polyps Retinal detachment Nephrolithiasis Hypothyroidism Seizure disorder) History of Previous Operations: Relevant previous surgery/procedure and date(s) ( H/O: hysterectomy History of lumbar fusion S/P lumbar laminectomy History of kidney stones History of back surgery Hx of removal of neck cyst History of tonsillectomy History of thyroidectomy History of section) Allergies: Allergies Allergy/AdvReac Type Severity Reaction Status Date / Time corn Allergy Intermediate Swelling Verified 12/17/23 09:32 heparin [HEPARIN] Allergy Intermediate ILL Verified 12/17/23 09:32 PLATELETS UNKNOWN heparin (porcine) Allergy Intermediate unkn Verified 12/17/23 09:32 hydrocodone [Vicodin] Allergy Intermediate Hallucinati Verified 12/17/23 09:32 ons tizanidine [From ZANAFLEX] Allergy Intermediate WELTS Verified 12/17/23 09:32 APPEAR ALL OVER BODY tramadol [Ultram] Allergy Intermediate welts Verified 12/17/23 09:32 wheat Allergy Intermediate Swelling Verified 12/17/23 09:32 hydromorphone [Dilaudid] Allergy Mild cold sweats Verified 12/17/23 09:32 levothyroxine sodium Allergy Mild Nausea Verified 12/17/23 09:32 meperidine [From DEMEROL] Allergy Mild n/a Verified 12/17/23 09:32 acetaminophen [From PERCOCET] AdvReac Intermediate UPSET/AGITA Verified 12/17/23 09:32 MICHAEL oxycodone [From PERCOCET] AdvReac Intermediate UPSET/AGITA Verified 12/17/23 09:32 MICHAEL vinegar Allergy Intermediate Swelling Uncoded 12/17/23 09:32 Review of Systems Sugical H&P ROS: Negative: Constitution, Cardiovascular, Respiratory, Neurological, Psychiatric, Hem-Onc, Allergic/Immunologic, Gastrointestinal, Genitourinary, Musculoskeletal, Integumentary, Endocrine and Eyes/Ears/Nose/Throat Exam Surgical H&P Exam: Normal: HEENT, Normal: Heart, Normal: Lungs, Normal: Extremities, Normal: Abdomen, Normal: Skin and Normal: Neurological Plan Diagnosis/Plan: Unchanged I have reviewed the history and physical and performed a pertinent physical examination on my patient. No changes have occurred unless specified. Time Spent With Patient Time: Total time managing care of this patient today ____ minutes.
[2023-12-19] MEDS: Lactated Ringers 1,000 ML 100 ML IVCONT (13:16)
--- NOTE | 2023-12-19 13:38 | P.OP_ITS ---
Operative Note Operative Note Date of Service: 12/19/23 Narrative: Operative Information Procedure Description: Colonoscopy Indication: screening Anesthesia: MAC COLONOSCOPY Instrument: Olympus variable stiffness pediatric scope 190L Colonoscopy Monitoring: Vital signs and clinical assessment, continuous EKG monitoring, Pulse oximetry, Carbon Dioxide monitoring and blood pressure monitoring were done throughout the procedure. Colon withdrawal time was 13 minutes. Procedure: The patient was placed in the left lateral decubitis position and pre-procedure medications were administered. After a digital rectal examination of the ano-rectum, the video colonoscope was inserted into the rectum and advanced through the colon to the cecum/TI. The colonoscope was slowly withdrawn in a retrograde panoramic fashion and the colon mucosa was carefully examined including a retroflexed view of the rectum. Findings and interventions are described below. Procedure Difficulty: easy Findings: Terminal Ileum-normal Cecum:normal Ascending Colon: normal Transverse Colon - x 2 sessile polyps 6-9 mm removed with cold forceps Descending Colon:normal Sigmoid Colon: x1 sessile polyp 4-5 mm removed with cold forceps, x 2 8-10 mm sessile polyps removed with cold snare Rectum: Retroflexion with small internal hemorrhoids seen, grade I Anorectum - normal Intervention: cold forceps, snare Colon preparation: [place] Bowel Preparation Scale Right colon; 2 Transverse colon: 3 Left colon; 3 (0 = Unprepared colon segment with mucosa not seen due to solid stool that cannot be cleared. 1 = Portion of mucosa of the colon segment seen, but other areas of the colon segment not well seen due to staining, residual stool and/or opaque liquid. 2 = Minor amount of residual staining, small fragments of stool and/or opaque liquid, but mucosa of colon segment seen well. 3 = Entire mucosa of colon segment seen well with no residual staining, small fragments of stool or opaque liquid) Impression and Post Procedure Diagnosis: diverticulosis colon polyps internal hemorrhoids Plan: High fiber diet leaflet Avoid straining at stool, epsom salts and sitz bath, anusol supps or cream Repeat Colonoscopy in 3-4 years due to polyps or earlier if clinically indicated Above findings were reviewed with the patient and relevant handouts were provided if indicated.
[2023-12-19 14:15] VITALS: BP 89/53; PULSE 52; RESP 16; TEMP 37; O2SAT 96
[2023-12-19 14:30] VITALS: BP 102/64; PULSE 52; RESP 16; TEMP 36.2; O2SAT 99
[2023-12-19 14:45] VITALS: BP 95/60; PULSE 62; RESP 16; O2SAT 98
[2023-12-19 15:00] VITALS: BP 96/63; PULSE 61; RESP 16; TEMP 36.5; O2SAT 98
== END 2023-12-19 15:22 | disposition home or self-care (01) ==
PROVIDERS: Visit Provider Internal Medicine Gastroenterology
PROC: 0DJD8ZZ Inspection of Lower Intestinal Tract, Via Natural or Artificial Opening Endoscopic (ICD-10-PCS; CPT 45378; principal; 2023-12-19 14:00)
DX: Z12.11 Encounter for screening for malignant neoplasm of colon (principal); D12.5 Benign neoplasm of sigmoid colon; K63.5 Polyp of colon; K64.0 First degree hemorrhoids; K43.9 Ventral hernia without obstruction or gangrene; E03.9 Hypothyroidism, unspecified; F41.8 Other specified anxiety disorders; L80 Vitiligo; Z88.8 Allergy status to other drugs, medicaments and biological substances; Z88.5 Allergy status to narcotic agent
CPT/HCPCS: 45385; 45380; 88305; J2704

== ENCOUNTER → 2023-12-19 12:14 | Outpatient (BNV) | payer MEDICARE, MEDICAID, SELFPAY | PROVIDERS: Visit Provider Internal Medicine Gastroenterology | DX: Z12.11 Encounter for screening for malignant neoplasm of colon (principal); D12.5 Benign neoplasm of sigmoid colon; K63.5 Polyp of colon; K64.0 First degree hemorrhoids | CPT/HCPCS: 45380; 45385 ==

== ENCOUNTER 2024-01-16 07:22 | Outpatient (REF) | payer MEDICARE, MEDICAID, SELFPAY ==
--- NOTE | ~2024-01-16 | MR_ITS ---
EXAMINATION: MR LUMBAR SPINE WITHOUT CONTRAST CLINICAL INFORMATION: 48-year-old with lumbar radiculopathy. COMPARISON: 09/18/2013 MRI. TECHNIQUE: MRI of the lumbar spine was obtained using routine sequences without contrast. FINDINGS: CORONAL ALIGNMENT: Normal. SAGITTAL ALIGNMENT: Trace retrolisthesis at L2-L3 is noted on current study with otherwise normal lumbosacral alignment status post multilevel interbody fusions between L3-L4 and L5-S1 inclusive with associated ferromagnetic artifact obscuring the disc spaces at these levels. LUMBOSACRAL JUNCTION: Normal. There are 5 [id number] lumbar-type vertebral bodies. VERTEBRAL BODIES: Vertebral body heights are well-maintained allowing for ferromagnetic artifact at the L3-L4, L4-L5 and L5-S1 levels partially obscuring the endplates at these levels. DISC SPACES AND ENDPLATES: Status post ALIF procedures at the L3-L4, L4-L5 and L5-S1 levels, with metallic hardware artifact partially obscuring these levels. There is minor anterior marginal spondylosis at L2-L3 with trace retrolisthesis at this level and minimal disc desiccation. No significant loss of disc space height at L2-L3 and throughout the remainder of the lumbar and visualized lower thoracic levels. SPINAL CANAL: No abnormal developmental findings. BONE MARROW: No suspicious marrow-replacing process or bone marrow edema, allowing for ferromagnetic artifact as detailed above. Type I and type II degenerative marrow signal changes are seen along the anterosuperior corner of L3 on current study. CONUS MEDULLARIS: Terminates at L2. Morphology and signal is normal. INTRADURAL NERVE ROOTS: Within normal limits. L5-S1: Mild posterior osteophytic ridging is noted with no significant canal or neural foraminal stenosis. Mild facet hypertrophic changes are noted bilaterally. L4-L5: Posterolateral osteophytic ridging noted with no significant canal or neural foraminal stenosis. Post laminectomy changes suspected. L3-L4: Mild posterolateral osteophytic ridging noted without canal or foraminal stenosis. Post laminectomy changes noted on the right. L2-L3: Trace retrolisthesis and mild disc bulging noted. [id number] bilateral facet joint arthropathy noted without significant canal or neural foraminal stenosis. No definite neural impingement. L1-L2: Normal annular contour. Ferromagnetic artifact noted partially obscuring the posterior elements consistent with the presence of a spinal stimulator device partially obscuring the posterior aspect of the canal. Within these limitations, there is no significant facet arthropathy, canal or neural foraminal stenosis. T12-L1: Normal annular contour. Spinal stimulator leads noted in place posteriorly. No significant canal or neural foraminal stenosis. PARAVERTEBRAL AND INCLUDED EXTRASPINAL SOFT TISSUES: Multilevel posterior paravertebral soft tissue muscle volume loss is noted between L2-L3 and the sacrum, progressed from the previous study. Otherwise, the paravertebral soft tissues are unremarkable. MR/MR lumbar spine wo con IMPRESSION: 1. Status post multilevel anterior interbody fusions between L3-L4 and L5-S1 inclusive with metallic hardware artifact partially obscuring these levels. 2. Trace retrolisthesis at L2-L3 with mild disc desiccation and mild disc bulging with bilateral facet joint arthropathy at this level without significant spinal canal or neural foraminal stenosis. 3. Spinal stimulator leads noted in place as described above. 4. Posterior paravertebral muscle volume loss progressed from previous study.
== END 2024-01-16 07:23 | disposition home or self-care (01) ==
LOC: HO.MRI 07:22
PROVIDERS: Visit Provider Internal Medicine
DX: M54.16 Radiculopathy, lumbar region (principal)
CPT/HCPCS: 72148

== ENCOUNTER 2024-04-17 10:54 | Outpatient (AMB) | payer MEDICARE, MEDICAID, SELFPAY ==
[2024-04-17 11:00] VITALS: BP 108/70; PULSE 66; O2SAT 97; BMI 23.3
--- NOTE | 2024-04-17 11:00 | A.OFFPC_ITS ---
Vital Signs 04/17/24 11:00 Height 5 ft 9 in Weight 158 lb BMI 23.3 BP 108/70 Blood Pressure Location Lt brachial Position Sitting Pulse 66 Pulse Source Pulse Oximeter Pulse Oximetry (%) 97 Oxygen Delivery Method Room Air Intake Visit Reasons: I'm over heating and can't cool down Intake Note: Pt is here today for a sick visit. Pt c/o hot flashes. Pt states that would like to have u/s done of her L side of her abdomen. Allergies corn Allergy (Intermediate, Verified 04/17/24 11:00) Swelling heparin [HEPARIN] Allergy (Intermediate, Verified 04/17/24 11:00) ILL PLATELETS UNKNOWN heparin (porcine) Allergy (Intermediate, Verified 04/17/24 11:00) unkn hydrocodone [Vicodin] Allergy (Intermediate, Verified 04/17/24 11:00) Hallucinations tizanidine [From ZANAFLEX] Allergy (Intermediate, Verified 04/17/24 11:00) WELTS APPEAR ALL OVER BODY tramadol [Ultram] Allergy (Intermediate, Verified 04/17/24 11:00) welts wheat Allergy (Intermediate, Verified 04/17/24 11:00) Swelling hydromorphone [Dilaudid] Allergy (Mild, Verified 04/17/24 11:00) cold sweats levothyroxine sodium Allergy (Mild, Verified 04/17/24 11:00) Nausea meperidine [From DEMEROL] Allergy (Mild, Verified 04/17/24 11:00) n/a acetaminophen [From PERCOCET] Adverse Reaction (Intermediate, Verified 04/17/24 11:00) UPSET/AGITATED oxycodone [From PERCOCET] Adverse Reaction (Intermediate, Verified 04/17/24 11:00) UPSET/AGITATED vinegar Allergy (Intermediate, Uncoded 04/17/24 11:00) Swelling Medication List - Last Reconciled 04/17/24 by Yoko He MD ascorbate calcium (vitamin C) 1,000 mg PO DAILY naproxen 500 mg PO BID tamsulosin 0.4 mg PO BEDTIME Tirosint (levothyroxine) 112 mcg PO DAILY NS topiramate 50 mg PO DAILY Tobacco use date assessed: 04/17/24 Dental Screening Dental Screen Date: 04/17/24 Did you have a dental visit in the last 12 months?: Yes Did you have a dental problem in the last 6 months where you did not have access to dental care?: No Was dental information given to patient?: Patient has dentist HPI I'm over heating and can't cool down HPI Details Patient reports hot flashes and insomnia for the last month. She complains of chronic abdominal pain was evaluated by surgeon in [place] who reports her hernia and place a mesh and was told that she does not need a repeat surgery and her pain is most likely related to scar tissue. Patient follows up with urologist at [place] for recurrent nephrolithiasis. Hypothyroidism is stable on Tirosint. [facility], [facility] Medical History (Updated 04/17/24 @ 12:11 by Yoko He MD) Depression with anxiety Vitiligo Abdominal wall hernia Knee pain, left Annual physical exam Head injury Fatigue Acquired hypothyroidism Allergies Colon polyps Retinal detachment Nephrolithiasis Hypothyroidism Surgical History H/O bone graft H/O: hysterectomy History of lumbar fusion S/P lumbar laminectomy History of kidney stones History of back surgery Hx of removal of neck cyst History of tonsillectomy History of thyroidectomy History of section Family History Father Cancer Mother No problems noted. Brother Substance use disorder Son No problems noted. Daughter No problems noted. Daughter No problems noted. Daughter No problems noted. Social History Housing: House Alcohol intake: current Alcohol intake frequency: other Patient Tobacco Use Status: Current everyday Tobacco user Cigarettes Per Day: 10 e-Cigarette/Vaping Use: Never Used Substance Use Type: Marijuana service: No Current occupational status: employed Cognitive needs: No Hearing needs: No Vision needs: Yes Questionnaire Thrive Questionnaire Date Thrive assessed: 10/23/23 I am a: Patient What is your living situation today?: I have a place to live, but I am worried about losing it in the future Within the past 12 months, did the food you bought not last and you didn't have the money to get more?: I choose not to answer this question Within the past 12 months, did you worry whether your food would run out before you got money to buy more?: I choose not to answer this question Do you have trouble paying for medicines?: I choose not to answer this question Do you have trouble getting transportation to medical appointments?: I choose not to answer this question Do you have trouble paying your heating and electricity bill?: I choose not to answer this question Do you have trouble taking care of your child, family member or friend?: I choose not to answer this question Do you have trouble with day-to-day activities such as bathing, preparing meals, shopping, managing finances, etc.?: I choose not to answer this question Are you currently unemployed and looking for a job?: I choose not to answer this question Are you interested in more education?: I choose not to answer this question Please select the resources that you would like help with: Housing/[place] and Job search/training Currently or been in a relationship where the following occur: I choose not to answer THRIVE Score: 1 AUDIT C Alcohol Use Questionnaire (AUDIT-C) 1. How often do you have a drink containing alcohol?: Never 3. How often do you have six or more drinks on one occasion?: Never Total Score: 0 JANINE-7 AMB Questionnaire JANINE-7 Date JANINE - 7 assessed: 10/23/23 Feeling nervous, anxious, or on edge: 2 = More than half the days Not being able to stop or control worryin = More than half the days Worrying too much about different things: 2 = More than half the days Trouble relaxin = More than half the days Being so restless that it is hard to sit still: 2 = More than half the days Becoming easily annoyed or irritable: 1 = Several days Feeling afraid as if something awful might happen: 0 = Not at all Total JANINE-7 score (0-4 normal; 5-9 mild; 10-14 moderate; 15-21 severe): 11 Source: Developed by Drs. Fredis Ballesteros, Luann Loredo, Xavier Marc and colleagues, with an educational luis from [employer]. Review of Systems Const All systems reviewed & are unremarkable except as noted in HPI and below ENT Reports no additional complaints Card Reports no additional complaints Resp Reports no additional complaints GI Reports no additional complaints Physical exam (Primary Care) Vital Signs: Last Vital Signs Pulse 66 04/17/24 11:00 BP 108/70 04/17/24 11:00 Pulse Ox 97 04/17/24 11:00 Oxygen Delivery Method Room Air 04/17/24 11:00 BMI result Body Mass Index 23.3 Tobacco/Smoking Status: Tobacco use Status Tobacco use date assessed 04/17/24 04/17/24 11:17 Patient Tobacco Use Status Current everyday Tobacco 04/17/24 11:17 e-Cigarette/Vaping Use Never Used 04/17/24 11:01 Thrive Assessment: Date of Thrive Assessment Date Thrive assessed 10/23/23 04/17/24 11:01 Currently or been in a relationship where the following occur: I choose not to answer Const General: no acute distress Eyes General: appearance normal, both eyes and all related structures Neck Neck: Yes supple Resp Effort & Inspection: normal respiratory effort Auscultation: clear to auscultation bilaterally Cardio Rhythm: regular rhythm Heart sounds: S1 normal heart sound present and S2 normal heart sound present GI Inspection: Yes normal to inspection Palpation (GI): Soft to palpation Percussion: Yes normal to percussion Auscultation: normal bowel sounds Assessment and Plan Assessment & Plan (1) Acquired hypothyroidism: Comment: f/u with endo Dr. Alejandra , needs to take brand name Tirosint Code(s): E03.9 - Hypothyroidism, unspecified Plan: Continue thyroid replacement (2) Abdominal wall hernia: Comment: s/p repair and mesh, f/u with surgeon [facility] Code(s): K43.9 - Ventral hernia without obstruction or gangrene Plan: Follow-up with the surgeon harinder (3) Menopause: Code(s): Z78.0 - Asymptomatic menopausal state Plan: Lifestyle modification including increase physical activity discussed with the patient. She will return in 6 months for physical with a fasting labs before. Patient will schedule mammogram at [place] (4) Colon polyps: Comment: 2015, due for repeat colonoscopy, 11/2023 8 polyps 1 serrated and 1 TA, repeat colonoscopy 1 yr, Dr. Posada Code(s): K63.5 - Polyp of colon Orders: Orders Lipid Panel 6 Months E03.9 - Hypothyroidism, unspecified, K43.9 - Ventral hernia without obstruction or gangrene, Z78.0 - Asymptomatic menopausal state TSH reflex Free T4 6 Months E03.9 - Hypothyroidism, unspecified, K43.9 - Ventral hernia without obstruction or gangrene, Z78.0 - Asymptomatic menopausal state Foll Stim Horm Pedi 6 Months E03.9 - Hypothyroidism, unspecified, K43.9 - Ventral hernia without obstruction or gangrene, Z78.0 - Asymptomatic menopausal state Comprehensive [place]. Panel Fast 6 Months E03.9 - Hypothyroidism, unspecified, K43.9 - Ventral hernia without obstruction or gangrene, Z78.0 - Asymptomatic menopausal state Complete Blood Count Auto Diff 6 Months E03.9 - Hypothyroidism, unspecified, K43.9 - Ventral hernia without obstruction or gangrene, Z78.0 - Asymptomatic menopausal state Triiodothyronine T3 Free 6 Months E03.9 - Hypothyroidism, unspecified, K43.9 - Ventral hernia without obstruction or gangrene, Z78.0 - Asymptomatic menopausal state Vitamin D 25-OH Total 6 Months E03.9 - Hypothyroidism, unspecified, K43.9 - Ventral hernia without obstruction or gangrene, Z78.0 - Asymptomatic menopausal state Coding Level of Care Code Est Pt Level 3 (32173) Diagnoses Acquired hypothyroidism E03.9 Abdominal wall hernia K43.9 Menopause Z78.0 Colon polyps K63.5
== END 2024-04-17 12:11 | disposition home or self-care (01) ==
PROVIDERS: Visit Provider Internal Medicine
DX: E03.9 Hypothyroidism, unspecified (principal); K43.9 Ventral hernia without obstruction or gangrene; Z78.0 Asymptomatic menopausal state; K63.5 Polyp of colon
CPT/HCPCS: 99213

== ENCOUNTER 2024-04-30 09:12 | Outpatient (REF) | payer MEDICARE, MEDICAID, SELFPAY | END 2024-04-30 09:13 | disposition home or self-care (01) | LOC: HO.LAB 09:12 | PROVIDERS: PCP Internal Medicine; Visit Provider Registered Nurse | DX: Z13.89 Encounter for screening for other disorder (principal) ==

== ENCOUNTER 2024-05-01 09:10 | Outpatient (AMB) | payer MEDICARE, MEDICAID, SELFPAY ==
--- NOTE | 2024-05-01 09:10 | A.OFFPC_ITS ---
Vital Signs 05/01/24 09:11 Height 5 ft 9 in Weight 160 lb BMI 23.6 BP 124/78 Blood Pressure Location Lt brachial Position Sitting Pulse 81 Pulse Source Pulse Oximeter Pulse Oximetry (%) 98 Oxygen Delivery Method Room Air Intake Visit Reasons: Large liver Intake Note: Pt is here today for a sick visit. Pt states that her Neurologist told her that her liver is enlarged and why nobody told her about that. Allergies corn Allergy (Intermediate, Verified 05/01/24 09:15) Swelling heparin [HEPARIN] Allergy (Intermediate, Verified 05/01/24 09:15) ILL PLATELETS UNKNOWN heparin (porcine) Allergy (Intermediate, Verified 05/01/24 09:15) unkn hydrocodone [Vicodin] Allergy (Intermediate, Verified 05/01/24 09:15) Hallucinations tizanidine [From ZANAFLEX] Allergy (Intermediate, Verified 05/01/24 09:15) WELTS APPEAR ALL OVER BODY tramadol [Ultram] Allergy (Intermediate, Verified 05/01/24 09:15) welts wheat Allergy (Intermediate, Verified 05/01/24 09:15) Swelling hydromorphone [Dilaudid] Allergy (Mild, Verified 05/01/24 09:15) cold sweats levothyroxine sodium Allergy (Mild, Verified 05/01/24 09:15) Nausea meperidine [From DEMEROL] Allergy (Mild, Verified 05/01/24 09:15) n/a acetaminophen [From PERCOCET] Adverse Reaction (Intermediate, Verified 05/01/24 09:15) UPSET/AGITATED oxycodone [From PERCOCET] Adverse Reaction (Intermediate, Verified 05/01/24 09:15) UPSET/AGITATED vinegar Allergy (Intermediate, Uncoded 05/01/24 09:15) Swelling Medication List - Last Reconciled 05/01/24 by Yoko He MD ascorbate calcium (vitamin C) 1,000 mg PO DAILY naproxen 500 mg PO BID tamsulosin 0.4 mg PO BEDTIME Tirosint (levothyroxine) 112 mcg PO DAILY NS topiramate 50 mg PO DAILY Tobacco use date assessed: 04/17/24 Dental Screening Dental Screen Date: 04/17/24 HPI Large liver HPI Details Patient presents for the follow-up. Hypothyroidism is controlled on Tirosint. Patient reports persistent chronic left side abdominal bloating and discomfort worse with constipation. Patient had extensive negative GI and workup. She follows up with Urology regularly for history of nephrolithiasis. She was seen by Neurology PA for chronic migraines and Topamax was prescribed but patient decided not to take it because of possible side effects. She has been managing her migraine headaches with Lavender essential oil [facility] Medical History (Updated 05/01/24 @ 11:20 by Yoko He MD) Hypothyroidism Depression with anxiety Vitiligo Abdominal wall hernia Knee pain, left Annual physical exam Head injury Fatigue Acquired hypothyroidism Allergies Colon polyps Retinal detachment Nephrolithiasis Surgical History H/O bone graft H/O: hysterectomy History of lumbar fusion S/P lumbar laminectomy History of kidney stones History of back surgery Hx of removal of neck cyst History of tonsillectomy History of thyroidectomy History of section Family History Father Cancer Mother No problems noted. Brother Substance use disorder Son No problems noted. Daughter No problems noted. Daughter No problems noted. Daughter No problems noted. Social History Housing: House Alcohol intake: current Alcohol intake frequency: other Patient Tobacco Use Status: Current everyday Tobacco user Cigarettes Per Day: 10 e-Cigarette/Vaping Use: Never Used Substance Use Type: Marijuana service: No Current occupational status: employed Cognitive needs: No Hearing needs: No Vision needs: Yes Questionnaire Thrive Questionnaire Date Thrive assessed: 10/23/23 I am a: Patient What is your living situation today?: I have a place to live, but I am worried about losing it in the future Within the past 12 months, did the food you bought not last and you didn't have the money to get more?: I choose not to answer this question Within the past 12 months, did you worry whether your food would run out before you got money to buy more?: I choose not to answer this question Do you have trouble paying for medicines?: I choose not to answer this question Do you have trouble getting transportation to medical appointments?: I choose not to answer this question Do you have trouble paying your heating and electricity bill?: I choose not to answer this question Do you have trouble taking care of your child, family member or friend?: I choose not to answer this question Do you have trouble with day-to-day activities such as bathing, preparing meals, shopping, managing finances, etc.?: I choose not to answer this question Are you currently unemployed and looking for a job?: I choose not to answer this question Are you interested in more education?: I choose not to answer this question Please select the resources that you would like help with: Housing/[place] and Job search/training Currently or been in a relationship where the following occur: I choose not to answer THRIVE Score: 1 AUDIT C Alcohol Use Questionnaire (AUDIT-C) 1. How often do you have a drink containing alcohol?: Never Total Score: 0 JANINE-7 AMB Questionnaire JANINE-7 Date JANINE - 7 assessed: 10/23/23 Feeling nervous, anxious, or on edge: 2 = More than half the days Not being able to stop or control worryin = More than half the days Worrying too much about different things: 2 = More than half the days Trouble relaxin = More than half the days Being so restless that it is hard to sit still: 2 = More than half the days Becoming easily annoyed or irritable: 1 = Several days Feeling afraid as if something awful might happen: 0 = Not at all Total JANINE-7 score (0-4 normal; 5-9 mild; 10-14 moderate; 15-21 severe): 11 Source: Developed by Drs. Fredis Ballesteros, Luann Loredo, Xavier Marc and colleagues, with an educational luis from [employer]. Review of Systems Const All systems reviewed & are unremarkable except as noted in HPI and below Card Reports no additional complaints Resp Reports no additional complaints GI Reports no additional complaints Reports no additional complaints Physical exam (Primary Care) Vital Signs: Last Vital Signs Pulse 81 05/01/24 09:11 BP 124/78 05/01/24 09:11 Pulse Ox 98 05/01/24 09:11 Oxygen Delivery Method Room Air 05/01/24 09:11 BMI result Body Mass Index 23.6 Tobacco/Smoking Status: Tobacco use Status Tobacco use date assessed 04/17/24 05/01/24 09:13 Patient Tobacco Use Status Current everyday Tobacco 05/01/24 09:13 e-Cigarette/Vaping Use Never Used 05/01/24 09:13 Thrive Assessment: Date of Thrive Assessment Date Thrive assessed 10/23/23 05/01/24 09:13 Currently or been in a relationship where the following occur: I choose not to answer Const General: no acute distress HENMT Head: Yes normal to inspection Resp Effort & Inspection: normal respiratory effort Auscultation: clear to auscultation bilaterally Cardio Rhythm: regular rhythm Heart sounds: S1 normal heart sound present and S2 normal heart sound present GI Inspection: Yes normal to inspection Palpation (GI): Soft to palpation and No hepatosplenomegaly present Percussion: Yes normal to percussion Auscultation: normal bowel sounds Assessment and Plan Assessment & Plan (1) Nephrolithiasis: Comment: s/p lithotripsy, abdominal pelvic at [facility] 10/24 punctate calcifications no obstruction, follow-up with [facility] urology Code(s): N20.0 - Calculus of kidney Plan: Follow-up with urology at [facility] (2) Abdominal pain: Comment: Left upper quadrant, abdominal pelvic [facility] at [facility] in October 2023, consistent with moderate amount of stool in proximal colon, punctate left lower renal calcifications no obstruction Code(s): R10.9 - Unspecified abdominal pain Plan: Patient will continue stool softener for chronic constipation and will have repeat colonoscopy next year for serrated polyp (3) Acquired hypothyroidism: Comment: f/u with endo Dr. Alejandra , needs to take brand name Tirosint Code(s): E03.9 - Hypothyroidism, unspecified Plan: Continue thyroid replacement Coding Level of Care Code Est Pt Level 4 (17624) Diagnoses Nephrolithiasis N20.0 Abdominal pain R10.9 Acquired hypothyroidism E03.9
[2024-05-01 09:11] VITALS: BP 124/78; PULSE 81; O2SAT 98; BMI 23.6
== END 2024-05-01 11:21 | disposition home or self-care (01) ==
PROVIDERS: PCP Internal Medicine; Visit Provider Internal Medicine
DX: N20.0 Calculus of kidney (principal); R10.9 Unspecified abdominal pain; E03.9 Hypothyroidism, unspecified
CPT/HCPCS: 99214

== ENCOUNTER 2024-10-27 10:47 | Outpatient (AMB) | payer MEDICARE, MEDICAID, SELFPAY ==
--- NOTE | 2024-10-27 11:03 | MHC.OFFVIS ---
Vital Signs 10/27/24 11:04 Height 5 ft 9 in Weight 160 lb BMI 23.6 BP 108/62 Blood Pressure Location Lt brachial Position Sitting Pulse 69 Intake Visit Reasons: pt req appointment Intake Note: Patient follow up for middle abd pain. Patient cc: middle abdominal /bloating to hernia and between diarrhea and constipation. Driver Service Technician Required: No Accompanied by: Self / Same As Patient Allergies corn Allergy (Intermediate, Verified 05/01/24 09:15) Swelling heparin [HEPARIN] Allergy (Intermediate, Verified 05/01/24 09:15) ILL PLATELETS UNKNOWN heparin (porcine) Allergy (Intermediate, Verified 05/01/24 09:15) unkn hydrocodone [Vicodin] Allergy (Intermediate, Verified 05/01/24 09:15) Hallucinations tizanidine [From ZANAFLEX] Allergy (Intermediate, Verified 05/01/24 09:15) WELTS APPEAR ALL OVER BODY tramadol [Ultram] Allergy (Intermediate, Verified 05/01/24 09:15) welts wheat Allergy (Intermediate, Verified 05/01/24 09:15) Swelling hydromorphone [Dilaudid] Allergy (Mild, Verified 05/01/24 09:15) cold sweats levothyroxine sodium Allergy (Mild, Verified 05/01/24 09:15) Nausea meperidine [From DEMEROL] Allergy (Mild, Verified 05/01/24 09:15) n/a acetaminophen [From PERCOCET] Adverse Reaction (Intermediate, Verified 05/01/24 09:15) UPSET/AGITATED oxycodone [From PERCOCET] Adverse Reaction (Intermediate, Verified 05/01/24 09:15) UPSET/AGITATED vinegar Allergy (Intermediate, Uncoded 05/01/24 09:15) Swelling HPI HPI pt req appointment: Details: 49 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 VITAL SIGNS:see workflow HEENT: Nonicteric sclerae, PERRLA, EOMI. Oropharynx clear. Moist mucous membranes. Conjunctivae appear well perfused. No thyroid mass. CHEST: Chest wall is nontender. HEART: Regular rate and rhythm without murmurs. LUNGS: Clear to auscultation bilaterally. ABDOMEN: Soft, positive bowel sounds, mildly tender left periumbilical area, no organomegaly.no flank tenderness SKIN: No rash, no excessive bruising, petechiae, or purpura. NEUROLOGIC: Cranial nerves II-XII intact without motor/sensory deficit. Psych: normal affect A/P: Abdo pain as above, uncertain etiology, ddx: mesh issue, colonic spasm, myofasxcial paic PLAN: /1 CT with PO contrast 2/ depending on above maybe repet colo with-EGD 3/ trial of levsin meantime FORMERLY [facility], [facility] Medical History (Updated 05/01/24 @ 11:20 by Yoko He MD) Hypothyroidism Depression with anxiety Vitiligo Abdominal wall hernia Knee pain, left Annual physical exam Head injury Fatigue Acquired hypothyroidism Allergies Colon polyps Retinal detachment Nephrolithiasis Surgical History H/O bone graft H/O: hysterectomy History of lumbar fusion S/P lumbar laminectomy History of kidney stones History of back surgery Hx of removal of neck cyst History of tonsillectomy History of thyroidectomy History of section Family History Father Cancer Mother No problems noted. Brother Substance use disorder Son No problems noted. Daughter No problems noted. Daughter No problems noted. Daughter No problems noted. Social History Housing: House Alcohol intake: current Alcohol intake frequency: other Patient Tobacco Use Status: Current everyday Tobacco user Cigarettes Per Day: 10 e-Cigarette/Vaping Use: Never Used Substance Use Type: Marijuana service: No Current occupational status: employed Cognitive needs: No Hearing needs: No Vision needs: Yes Physical Exam Vital Signs: Last Vital Signs Pulse 69 10/27/24 11:04 BP 108/62 10/27/24 11:04 BMI result Body Mass Index 23.6 Assessment & Plan Assessment & Plan (1) Abdominal pain: Comment: Left upper quadrant, abdominal pelvic CT at [facility] in October 2023, consistent with moderate amount of stool in proximal colon, punctate left lower renal calcifications no obstruction Code(s): R10.9 - Unspecified abdominal pain Category: Medical Plan: see above Orders: Orders CT abdomen pelvis wo IV con Today R10.9 - Unspecified abdominal pain Medications: New hyoscyamine sulfate 0.125 mg PO BID-QID PRN 30 tabs 0RF dyspepsia Coding Level of Care Code Est Pt Level 4 (30296) Diagnoses Abdominal pain R10.9
[2024-10-27 11:04] VITALS: BP 108/62; PULSE 69; BMI 23.6
== END 2024-10-27 11:41 | disposition home or self-care (01) ==
PROVIDERS: PCP Internal Medicine; Visit Provider Internal Medicine Gastroenterology
DX: R10.9 Unspecified abdominal pain (principal)
CPT/HCPCS: 99214

== ENCOUNTER → 2024-10-27 10:47 | Outpatient (BNVA) | payer MEDICARE, MEDICAID, SELFPAY | PROVIDERS: PCP Internal Medicine; Visit Provider Internal Medicine Gastroenterology | DX: R10.9 Unspecified abdominal pain (principal) | CPT/HCPCS: 99212 ==

== ENCOUNTER 2024-10-30 09:59 | Outpatient (AMB) | payer MEDICARE, MEDICAID, SELFPAY ==
[2024-10-30 10:10] VITALS: BP 130/78; PULSE 84; RESP 16; TEMP 36.7; O2SAT 97; BMI 24.5
--- NOTE | 2024-10-30 10:10 | MHC.PC.OV ---
Vital Signs 10/30/24 10:10 Height 5 ft 9 in Weight 166 lb BMI 24.5 BP 130/78 Blood Pressure Location Rt brachial Position Sitting Respiration 16 Pulse 84 Pulse Source Pulse Oximeter Temp 98.0 F Temp Source Oral Pulse Oximetry (%) 97 Oxygen Delivery Method Room Air Intake Visit Reasons: PA request Allergies corn Allergy (Intermediate, Verified 10/30/24 10:11) Swelling heparin [HEPARIN] Allergy (Intermediate, Verified 10/30/24 10:11) ILL PLATELETS UNKNOWN heparin (porcine) Allergy (Intermediate, Verified 10/30/24 10:11) unkn hydrocodone [Vicodin] Allergy (Intermediate, Verified 10/30/24 10:11) Hallucinations tizanidine [From ZANAFLEX] Allergy (Intermediate, Verified 10/30/24 10:11) WELTS APPEAR ALL OVER BODY tramadol [Ultram] Allergy (Intermediate, Verified 10/30/24 10:11) welts wheat Allergy (Intermediate, Verified 10/30/24 10:11) Swelling hydromorphone [Dilaudid] Allergy (Mild, Verified 10/30/24 10:11) cold sweats levothyroxine sodium Allergy (Mild, Verified 10/30/24 10:11) Nausea meperidine [From DEMEROL] Allergy (Mild, Verified 10/30/24 10:11) n/a acetaminophen [From PERCOCET] Adverse Reaction (Intermediate, Verified 10/30/24 10:11) UPSET/AGITATED oxycodone [From PERCOCET] Adverse Reaction (Intermediate, Verified 10/30/24 10:11) UPSET/AGITATED vinegar Allergy (Intermediate, Uncoded 10/30/24 10:11) Swelling Medication List - Last Reconciled 10/30/24 by Yoko He MD ascorbate calcium (vitamin C) 1,000 mg PO DAILY hyoscyamine sulfate 0.125 mg PO BID-QID PRN naproxen 500 mg PO BID tamsulosin 0.4 mg PO BEDTIME Tirosint (levothyroxine) 112 mcg PO DAILY NS Tobacco use date assessed: 10/30/24 Dental Screening Dental Screen Date: 10/30/24 Did you have a dental visit in the last 12 months?: Yes Did you have a dental problem in the last 6 months where you did not have access to dental care?: No Was dental information given to patient?: Patient has dentist HPI PA request HPI Details Patient presents for the follow-up on hypothyroidism. Patient states she ran out of Tirosint 4 days ago and needs pre authorization for brand-name medication. Patient had a 90 day supply filled on August 04 and should have enough medication to last her for another week. Patient reports she did not count the pills after picking up the medication but is very upset that she did not have her refills and preauthorization ready at the pharmacy in October. Patient reports chronic diarrhea and constipation worsening recently and was seen by GI. CT of the abdomen was ordered. Patient was prescribed hyoscyamine for IBS [facility] Medical History (Updated 10/30/24 @ 11:42 by Yoko He MD) Hypothyroidism Depression with anxiety Vitiligo Abdominal wall hernia Knee pain, left Annual physical exam Head injury Fatigue Acquired hypothyroidism Allergies Colon polyps Retinal detachment Nephrolithiasis Surgical History H/O bone graft H/O: hysterectomy History of lumbar fusion S/P lumbar laminectomy History of kidney stones History of back surgery Hx of removal of neck cyst History of tonsillectomy History of thyroidectomy History of section Family History Father Cancer Mother No problems noted. Brother Substance use disorder Son No problems noted. Daughter No problems noted. Daughter No problems noted. Daughter No problems noted. Social History Housing: House Alcohol intake: current Alcohol intake frequency: other Patient Tobacco Use Status: Current everyday Tobacco user Cigarettes Per Day: 10 e-Cigarette/Vaping Use: Never Used Substance Use Type: Marijuana service: No Current occupational status: employed Cognitive needs: No Hearing needs: No Vision needs: Yes Questionnaire PHQ-9 Over the last 2 weeks, how often have you been bothered by any of the following problems? 1. Little interest or pleasure in doing things: not at all 2. Feeling down, depressed, or hopeless: not at all 3. Trouble falling or staying asleep, or sleeping too much: more than half the days 4. Feeling tired or having little energy: more than half the days 5. Poor appetite or overeating: nearly every day 6. Feeling bad about yourself - or that you are a failure or have let yourself or your family down: not at all 7. Trouble concentrating on things, such as reading the newspaper or watching television: not at all 8. Moving or speaking so slowly that other people could have noticed. Or the opposite - being so fidgety or restless that you have been moving around a lot more than usual: not at all 9. Thoughts that you would be better off or of hurting yourself in some way: not at all Total score: 7 Depression Screening Interpretation: Negative Depression Screening Done: Yes 51851 - PHQ-9 Billing: Yes Source: Developed by Drs. Fredis Ballesteros, Luann Loredo, Xavier Marc and colleagues, with an educational luis from [employer]. Thrive Questionnaire Date Thrive assessed: 10/30/24 I am a: Patient What is your living situation today?: I choose not to answer this question Within the past 12 months, did the food you bought not last and you didn't have the money to get more?: I choose not to answer this question Within the past 12 months, did you worry whether your food would run out before you got money to buy more?: I choose not to answer this question Do you have trouble paying for medicines?: I choose not to answer this question Do you have trouble getting transportation to medical appointments?: I choose not to answer this question Do you have trouble paying your heating and electricity bill?: I choose not to answer this question Do you have trouble taking care of your child, family member or friend?: I choose not to answer this question Do you have trouble with day-to-day activities such as bathing, preparing meals, shopping, managing finances, etc.?: I choose not to answer this question Are you currently unemployed and looking for a job?: I choose not to answer this question Are you interested in more education?: I choose not to answer this question Please select the resources that you would like help with: None Currently or been in a relationship where the following occur: I choose not to answer THRIVE Score: 0 AUDIT C Alcohol Use Questionnaire (AUDIT-C) 1. How often do you have a drink containing alcohol?: Never 3. How often do you have six or more drinks on one occasion?: Never Total Score: 0 JANINE-7 AMB Questionnaire JANINE-7 Date JANINE - 7 assessed: 10/30/24 Feeling nervous, anxious, or on edge: 1 = Several days Not being able to stop or control worryin = Not at all Worrying too much about different things: 0 = Not at all Trouble relaxin = Not at all Being so restless that it is hard to sit still: 0 = Not at all Becoming easily annoyed or irritable: 1 = Several days Feeling afraid as if something awful might happen: 0 = Not at all Total JANINE-7 score (0-4 normal; 5-9 mild; 10-14 moderate; 15-21 severe): 2 Source: Developed by Drs. Fredis Ballesteros, Luann Loredo, Xavier Marc and colleagues, with an educational luis from [employer]. JANINE-7 Assessment Billing JANINE-7 Assessment Tool: JANINE-7 Assessment 60003 Review of Systems Const All systems reviewed & are unremarkable except as noted in HPI and below ENT Reports no additional complaints Card Reports no additional complaints Resp Reports no additional complaints GI Reports no additional complaints Reports no additional complaints Physical exam (Primary Care) Vital Signs: Last Vital Signs Temp 98.0 F 10/30/24 10:10 Pulse 84 10/30/24 10:10 Resp 16 10/30/24 10:10 BP 130/78 10/30/24 10:10 Pulse Ox 97 10/30/24 10:10 Oxygen Delivery Method Room Air 10/30/24 10:10 BMI result Body Mass Index 24.5 Tobacco/Smoking Status: Tobacco use Status Tobacco use date assessed 10/30/24 10/30/24 10:14 Patient Tobacco Use Status Current everyday Tobacco 10/30/24 10:10 e-Cigarette/Vaping Use Never Used 10/30/24 10:10 PHQ-9: PHQ-9 Score PHQ-9: Total score 7 10/30/24 10:14 Depression Screening Interpretation: Negative Thrive Assessment: Date of Thrive Assessment Date Thrive assessed 10/30/24 10/30/24 10:14 Currently or been in a relationship where the following occur: I choose not to answer Const General: no acute distress HENMT Head: Yes normal to inspection Resp Effort & Inspection: normal respiratory effort Auscultation: clear to auscultation bilaterally Cardio Rhythm: regular rhythm Heart sounds: S1 normal heart sound present and S2 normal heart sound present GI Inspection: Yes normal to inspection Palpation (GI): Soft to palpation and nontender Percussion: Yes normal to percussion Auscultation: normal bowel sounds Coding Level of Care Code Est Pt Level 3 (33389) Diagnoses Acquired hypothyroidism E03.9 Hyperlipidemia E78.5 Additional Codes JANINE-7 Assessment Billing - JANINE-7 Assessment Tool: JANINE-7 Assessment 65113 ([id number]) PHQ-9 - 12041 - PHQ-9 Billing: Yes ([id number]) Assessment & Plan Assessment & Plan (1) Acquired hypothyroidism: Comment: used to see endo Dr. Alejandra , needs to take brand name Tirosint Code(s): E03.9 - Hypothyroidism, unspecified Category: Medical Plan: Restart Tirosint, patient will return for physical in November with a fasting labs before (2) Hyperlipidemia: Code(s): E78.5 - Hyperlipidemia, unspecified Category: Medical Plan: Continue low-cholesterol diet Orders: Orders TSH reflex Free T4 1 Month E03.9 - Hypothyroidism, unspecified, E78.5 - Hyperlipidemia, unspecified, Z00.00 - Encounter for general adult medical examination without abnormal findings Comprehensive [place]. Panel Fast 1 Month E03.9 - Hypothyroidism, unspecified, E78.5 - Hyperlipidemia, unspecified, Z00.00 - Encounter for general adult medical examination without abnormal findings Complete Blood Count Auto Diff 1 Month E03.9 - Hypothyroidism, unspecified, E78.5 - Hyperlipidemia, unspecified, Z00.00 - Encounter for general adult medical examination without abnormal findings Lipid Panel 1 Month E03.9 - Hypothyroidism, unspecified, E78.5 - Hyperlipidemia, unspecified, Z00.00 - Encounter for general adult medical examination without abnormal findings Medications: Refilled Tirosint (levothyroxine) 112 mcg PO DAILY 90 caps 11RF NS Discontinued tamsulosin Discontinued Reason: Doctor's Order 0.4 mg PO BEDTIME 30 caps 1RF
== END 2024-10-30 11:44 | disposition home or self-care (01) ==
PROVIDERS: PCP Internal Medicine; Visit Provider Internal Medicine
DX: E03.9 Hypothyroidism, unspecified (principal); E78.5 Hyperlipidemia, unspecified

== ENCOUNTER → 2024-10-30 09:59 | Outpatient (BNVA) | payer MEDICARE, MEDICAID, SELFPAY | PROVIDERS: PCP Internal Medicine; Visit Provider Internal Medicine | DX: E03.9 Hypothyroidism, unspecified (principal); E78.5 Hyperlipidemia, unspecified | CPT/HCPCS: 96127; 99212 ==

== ENCOUNTER 2024-12-04 07:44 | Outpatient (REF) | payer MEDICARE, MEDICAID, SELFPAY ==
--- NOTE | ~2024-12-04 | CT_ITS ---
CLINICAL HISTORY: R10.9 - Unspecified abdominal pain CT abdomen and pelvis without contrast Comparison: None Findings: The lung bases are clear. Unremarkable gallbladder and solid organs. New line punctate nonobstructing lower pole right renal stones. New line mild dilation of the right-sided renal pelvis without obstructing lesion. Ureter is nondilated. No bowel obstruction, pneumoperitoneum, or pneumatosis. Hysterectomy. Unremarkable bladder and appendix. Prior lumbar fusion. Spinal stimulator in place IMPRESSION: Punctate nonobstructing right renal stone. Mild right renal pelvis dilation, possibly an extrarenal pelvis. Ureter is nondilated. Hysterectomy. This document has been electronically signed by: Therese Castellon MD on 12/05/2024 08:51:42
[2024-12-04] MEDS: Barium Sulfate Oral (Vanilla) 450 ML ORAL.SUSP 900 ML PO (10:19)
== END 2024-12-04 07:45 | disposition home or self-care (01) ==
LOC: HO.CT 07:44
PROVIDERS: PCP Internal Medicine; Visit Provider Internal Medicine Gastroenterology
DX: R10.9 Unspecified abdominal pain (principal)
CPT/HCPCS: 74176

== ENCOUNTER → 2024-12-04 07:45 | Outpatient (BNV) | payer MEDICARE, MEDICAID, SELFPAY | PROVIDERS: PCP Internal Medicine; Visit Provider Radiology Diagnostic Radiology | DX: N20.0 Calculus of kidney (principal) | CPT/HCPCS: 74176 ==

== ENCOUNTER 2024-12-23 07:54 | Outpatient (AMB) | payer MEDICARE, MEDICAID, SELFPAY ==
[2024-12-23 08:06] VITALS: BP 110/66; PULSE 70; RESP 18; TEMP 36.7; O2SAT 96; BMI 24.2
--- NOTE | 2024-12-23 08:06 | A.OFFPC_ITS ---
Vital Signs 12/23/24 08:06 Height 5 ft 9 in Weight 164 lb BMI 24.2 BP 110/66 Blood Pressure Location Rt brachial Position Sitting Respiration 18 Pulse 70 Pulse Source Pulse Oximeter Temp 98.1 F Temp Source Oral Pulse Oximetry (%) 96 Oxygen Delivery Method Room Air Intake Visit Reasons: Annual PE Intake Note: Pt is here today for PE. Allergies corn Allergy (Intermediate, Verified 12/23/24 08:13) Swelling heparin [HEPARIN] Allergy (Intermediate, Verified 12/23/24 08:13) ILL PLATELETS UNKNOWN heparin (porcine) Allergy (Intermediate, Verified 12/23/24 08:13) unkn hydrocodone [Vicodin] Allergy (Intermediate, Verified 12/23/24 08:13) Hallucinations tizanidine [From ZANAFLEX] Allergy (Intermediate, Verified 12/23/24 08:13) WELTS APPEAR ALL OVER BODY tramadol [Ultram] Allergy (Intermediate, Verified 12/23/24 08:13) welts wheat Allergy (Intermediate, Verified 12/23/24 08:13) Swelling hydromorphone [Dilaudid] Allergy (Mild, Verified 12/23/24 08:13) cold sweats levothyroxine sodium Allergy (Mild, Verified 12/23/24 08:13) Nausea meperidine [From DEMEROL] Allergy (Mild, Verified 12/23/24 08:13) n/a acetaminophen [From PERCOCET] Adverse Reaction (Intermediate, Verified 12/23/24 08:13) UPSET/AGITATED oxycodone [From PERCOCET] Adverse Reaction (Intermediate, Verified 12/23/24 08:13) UPSET/AGITATED vinegar Allergy (Intermediate, Uncoded 12/23/24 08:13) Swelling Medication List - Last Reconciled 12/23/24 by Yoko He MD ascorbate calcium (vitamin C) 1,000 mg PO DAILY barium sulfate 2%(w/v) (Readi-Cat 2) 900 mL PO ONCE hyoscyamine sulfate 0.125 mg PO BID-QID PRN Tirosint (levothyroxine) 112 mcg PO DAILY NS Tobacco use date assessed: 12/23/24 Dental Screening Dental Screen Date: 12/23/24 Did you have a dental visit in the last 12 months?: Yes Did you have a dental problem in the last 6 months where you did not have access to dental care?: No Was dental information given to patient?: Patient has dentist HPI Annual PE HPI Details Pt presents for PE. [facility] Medical History Hypothyroidism Depression with anxiety Vitiligo Abdominal wall hernia Knee pain, left Annual physical exam Head injury Fatigue Acquired hypothyroidism Allergies Colon polyps Retinal detachment Nephrolithiasis Surgical History H/O bone graft H/O: hysterectomy History of lumbar fusion S/P lumbar laminectomy History of kidney stones History of back surgery Hx of removal of neck cyst History of tonsillectomy History of thyroidectomy History of section Family History Father Cancer Mother No problems noted. Brother Substance use disorder Son No problems noted. Daughter No problems noted. Daughter No problems noted. Daughter No problems noted. Social History Housing: House Alcohol intake: current Alcohol intake frequency: other Patient Tobacco Use Status: Current everyday Tobacco user Cigarettes Per Day: 10 e-Cigarette/Vaping Use: Never Used Substance Use Type: Marijuana service: No Current occupational status: employed Cognitive needs: No Hearing needs: No Vision needs: Yes Questionnaire PHQ-9 Over the last 2 weeks, how often have you been bothered by any of the following problems? 1. Little interest or pleasure in doing things: not at all 2. Feeling down, depressed, or hopeless: not at all 3. Trouble falling or staying asleep, or sleeping too much: more than half the days 4. Feeling tired or having little energy: more than half the days 5. Poor appetite or overeating: nearly every day 6. Feeling bad about yourself - or that you are a failure or have let yourself or your family down: not at all 7. Trouble concentrating on things, such as reading the newspaper or watching television: not at all 8. Moving or speaking so slowly that other people could have noticed. Or the opposite - being so fidgety or restless that you have been moving around a lot more than usual: not at all 9. Thoughts that you would be better off or of hurting yourself in some way: not at all Total score: 7 Depression Screening Interpretation: Negative Depression Screening Done: Yes 09387 - PHQ-9 Billing: Yes Source: Developed by Drs. Fredis Ballesteros, Luann Loredo, Xavier Marc and colleagues, with an educational luis from [employer]. Thrive Questionnaire Date Thrive assessed: 12/23/24 I am a: Patient What is your living situation today?: I choose not to answer this question Within the past 12 months, did the food you bought not last and you didn't have the money to get more?: I choose not to answer this question Within the past 12 months, did you worry whether your food would run out before you got money to buy more?: I choose not to answer this question Do you have trouble paying for medicines?: I choose not to answer this question Do you have trouble getting transportation to medical appointments?: I choose not to answer this question Do you have trouble paying your heating and electricity bill?: I choose not to answer this question Do you have trouble taking care of your child, family member or friend?: I choose not to answer this question Do you have trouble with day-to-day activities such as bathing, preparing meals, shopping, managing finances, etc.?: I choose not to answer this question Are you currently unemployed and looking for a job?: I choose not to answer this question Are you interested in more education?: I choose not to answer this question Please select the resources that you would like help with: None Currently or been in a relationship where the following occur: I choose not to answer THRIVE Score: 0 AUDIT C Alcohol Use Questionnaire (AUDIT-C) 1. How often do you have a drink containing alcohol?: Never 3. How often do you have six or more drinks on one occasion?: Never Total Score: 0 JANINE-7 AMB Questionnaire JANINE-7 Date JANINE - 7 assessed: 12/23/24 Feeling nervous, anxious, or on edge: 1 = Several days Not being able to stop or control worryin = Not at all Worrying too much about different things: 0 = Not at all Trouble relaxin = Not at all Being so restless that it is hard to sit still: 0 = Not at all Becoming easily annoyed or irritable: 1 = Several days Feeling afraid as if something awful might happen: 0 = Not at all Total JANINE-7 score (0-4 normal; 5-9 mild; 10-14 moderate; 15-21 severe): 2 Source: Developed by Drs. Fredis Ballesteros, Luann Loredo, Xavier Marc and colleagues, with an educational luis from [employer]. JANINE-7 Assessment Billing JANINE-7 Assessment Tool: JANINE-7 Assessment 49930 Review of Systems Const All systems reviewed & are unremarkable except as noted in HPI and below Reports no additional complaints Eyes Reports no additional complaints ENT Reports no additional complaints Card Reports no additional complaints Resp Reports no additional complaints GI Reports no additional complaints Reports no additional complaints Physical exam (Primary Care) Vital Signs: Last Vital Signs Temp 98.1 F 12/23/24 08:06 Pulse 70 12/23/24 08:06 Resp 18 12/23/24 08:06 BP 110/66 12/23/24 08:06 Pulse Ox 96 12/23/24 08:06 Oxygen Delivery Method Room Air 12/23/24 08:06 BMI result Body Mass Index 24.2 Tobacco/Smoking Status: Tobacco use Status Tobacco use date assessed 12/23/24 12/23/24 08:13 Patient Tobacco Use Status Current everyday Tobacco 12/23/24 08:13 e-Cigarette/Vaping Use Never Used 12/23/24 08:13 PHQ-9: PHQ-9 Score PHQ-9: Total score 7 12/23/24 08:13 Depression Screening Interpretation: Negative Thrive Assessment: Date of Thrive Assessment Date Thrive assessed 12/23/24 12/23/24 08:13 Currently or been in a relationship where the following occur: I choose not to answer Const General: no acute distress HENMT Head: Yes normal to inspection Ears: hearing grossly normal bilaterally Face and sinus: Yes normal facial exam Mouth: Normal oral and palatal mucosa present Throat: Yes posterior oropharynx normal Eyes General: appearance normal, both eyes and all related structures Neck Neck: Yes no lymphadenopathy and Yes supple Resp Effort & Inspection: normal respiratory effort Auscultation: clear to auscultation bilaterally Cardio Rhythm: regular rhythm Heart sounds: S1 normal heart sound present and S2 normal heart sound present GI Inspection: Yes normal to inspection Palpation (GI): Soft to palpation Percussion: Yes normal to percussion Auscultation: normal bowel sounds Coding Level of Care Code Est Pt Prev Care 40-64y(79733) Diagnoses Acquired hypothyroidism E03.9 Annual physical exam Z00.00 Colon polyps K63.5 Additional Codes JANINE-7 Assessment Billing - JANINE-7 Assessment Tool: JANINE-7 Assessment 34371 ([id number]) PHQ-9 - 07191 - PHQ-9 Billing: Yes ([id number]) Assessment & Plan Assessment & Plan (1) Acquired hypothyroidism: Comment: used to see endo Dr. Alejandra , needs to take brand name Tirosint Code(s): E03.9 - Hypothyroidism, unspecified Category: Medical Plan: Continue levothyroxine (2) Annual physical exam: Comment: s/p hysterectomy Code(s): Z00.00 - Encounter for general adult medical examination without abnormal findings Category: Medical Plan: Well-balanced diet regular exercise tobacco quitting discussed with the patient. She will be referred for mammogram and follows up with GI for repeat colonoscopy. (3) Colon polyps: Comment: 2015, due for repeat colonoscopy, 11/2023 8 polyps 1 serrated and 1 TA, repeat colonoscopy 1 yr, Dr. Posada Code(s): K63.5 - Polyp of colon Category: Medical Plan: Follow-up with GI Orders: Orders MM screening mammo BI Today Z12.31 - Encounter for screening mammogram for malignant neoplasm of breast
== END 2024-12-23 09:01 | disposition home or self-care (01) ==
LOC: HO.HMCC 07:54
PROVIDERS: PCP Internal Medicine; Visit Provider Internal Medicine
DX: E03.9 Hypothyroidism, unspecified (principal); Z00.00 Encounter for general adult medical examination without abnormal findings; K63.5 Polyp of colon

== ENCOUNTER → 2024-12-23 07:54 | Outpatient (BNVA) | payer MEDICARE, MEDICAID, SELFPAY | PROVIDERS: PCP Internal Medicine; Visit Provider Internal Medicine | DX: Z00.00 Encounter for general adult medical examination without abnormal findings (principal); E03.9 Hypothyroidism, unspecified; K63.5 Polyp of colon | CPT/HCPCS: 96127; 99396 ==

== ENCOUNTER 2025-01-07 10:22 | Day surgery (SDC) | payer MEDICARE, MEDICAID, SELFPAY ==
--- NOTE | 2025-01-06 09:27 | P.CONAN_ITS ---
Documented by User: Michela Villa NP 01/06/25 09:28 HPI - Anesthesia Eval Consult details Narrative: 49yo F for Colonoscopy PMFSH Active Problems Active Problems: All Active Problems Vertigo (Acute) Hyperlipidemia (Acute) Menopause (Acute) Thoracic radiculopathy (Acute) Depression with anxiety (Acute) Frequent UTI (Acute) Lumbar radiculopathy (Acute) Abdominal pain (Acute) Nephrolithiasis (Acute) Incisional hernia (Acute) AMERICA positive (Acute) Colon polyps (Acute) Swelling of right upper extremity (Acute) Autoimmune dermatitis (Acute) Increased urinary frequency (Acute) Abdominal wall hernia (Acute) Knee pain, left (Acute) Annual physical exam (Acute) Head injury (Acute) Fatigue (Acute) Acquired hypothyroidism (Acute) Allergies (Acute) Past Medical History Medical History Hypothyroidism Depression with anxiety Vitiligo Abdominal wall hernia Knee pain, left Annual physical exam Head injury Fatigue Acquired hypothyroidism Allergies Colon polyps Retinal detachment Nephrolithiasis Family History Family History Father Cancer Mother No problems noted. Brother Substance use disorder Son No problems noted. Daughter No problems noted. Daughter No problems noted. Daughter No problems noted. Family history of problems with anesthesia: No Surgical History Surgical History H/O bone graft H/O: hysterectomy History of lumbar fusion S/P lumbar laminectomy History of kidney stones History of back surgery Hx of removal of neck cyst History of tonsillectomy History of thyroidectomy History of section History of Problems with Anesthesia: No Social History Social History Housing: House Are you a primary healthcare administrator to a significant other at home: No Do you presently have visiting nurse or other home services: No Alcohol intake: current Alcohol intake frequency: holidays/special occasions only Patient Tobacco Use Status: Current everyday Tobacco user Cigarette Packs Per Day: 1 Cigarettes Per Day: 20.0 e-Cigarette/Vaping Use: Never Used Substance Use Type: Marijuana service: No Current occupational status: employed Cognitive needs: No Hearing needs: No Vision needs: Yes Meds Allergies Allergy/AdvReac Type Severity Reaction Status Date / Time corn Allergy Intermediate Swelling Verified 01/07/25 11:30 heparin [HEPARIN] Allergy Intermediate ILL Verified 01/07/25 11:30 PLATELETS UNKNOWN heparin (porcine) Allergy Intermediate unkn Verified 01/07/25 11:30 hydrocodone [Vicodin] Allergy Intermediate Hallucinati Verified 01/07/25 11:30 ons tizanidine [From ZANAFLEX] Allergy Intermediate WELTS Verified 01/07/25 11:30 APPEAR ALL OVER BODY tramadol [Ultram] Allergy Intermediate welts Verified 01/07/25 11:30 wheat Allergy Intermediate Swelling Verified 01/07/25 11:30 hydromorphone [Dilaudid] Allergy Mild cold sweats Verified 01/07/25 11:30 levothyroxine sodium Allergy Mild Nausea Verified 01/07/25 11:30 meperidine [From DEMEROL] Allergy Mild n/a Verified 01/07/25 11:30 acetaminophen [From PERCOCET] AdvReac Intermediate UPSET/AGITA Verified 01/07/25 11:30 MICHAEL oxycodone [From PERCOCET] AdvReac Intermediate UPSET/AGITA Verified 01/07/25 11:30 MICHAEL vinegar Allergy Intermediate Swelling Uncoded 01/07/25 11:30 Home Medications ?Medication ?Instructions ?Recorded ?Confirmed ?Last Taken ?Type ascorbate calcium (vitamin C) 500 1,000 mg PO DAILY 06/16/21 01/07/25 Unknown History mg tablet Assessment and Plan Assessment Anesthesia Assessment: Chart Reviewed Final Anesthetic Review Family History of Problems with Anesthesia: No History of Problems with Anesthesia: No Documented by User: Jami Quiñonez MD 01/07/25 13:24 PMFSH Active Problems Active Problems: All Active Problems Vertigo (Acute) Hyperlipidemia (Acute) Menopause (Acute) Thoracic radiculopathy (Acute) Depression with anxiety (Acute) Frequent UTI (Acute) Lumbar radiculopathy (Acute) Abdominal pain (Acute) Nephrolithiasis (Acute) Incisional hernia (Acute) AMERICA positive (Acute) Colon polyps (Acute) Swelling of right upper extremity (Acute) Autoimmune dermatitis (Acute) Increased urinary frequency (Acute) Abdominal wall hernia (Acute) Knee pain, left (Acute) Annual physical exam (Acute) Head injury (Acute) Fatigue (Acute) Acquired hypothyroidism (Acute) Allergies (Acute) Smoker Marijuana use Past Medical History Medical History Hypothyroidism Depression with anxiety Vitiligo Abdominal wall hernia Knee pain, left Annual physical exam Head injury Fatigue Acquired hypothyroidism Allergies Colon polyps Retinal detachment Nephrolithiasis Family History Family History Father Cancer Mother No problems noted. Brother Substance use disorder Son No problems noted. Daughter No problems noted. Daughter No problems noted. Daughter No problems noted. Surgical History Surgical History H/O bone graft H/O: hysterectomy History of lumbar fusion S/P lumbar laminectomy History of kidney stones History of back surgery Hx of removal of neck cyst History of tonsillectomy History of thyroidectomy History of section Social History Social History Housing: House Are you a primary healthcare administrator to a significant other at home: No Do you presently have visiting nurse or other home services: No Alcohol intake: current Alcohol intake frequency: holidays/special occasions only Patient Tobacco Use Status: Current everyday Tobacco user Cigarette Packs Per Day: 1 Cigarettes Per Day: 20.0 e-Cigarette/Vaping Use: Never Used Substance Use Type: Marijuana service: No Current occupational status: employed Cognitive needs: No Hearing needs: No Vision needs: Yes Meds Allergies Allergy/AdvReac Type Severity Reaction Status Date / Time corn Allergy Intermediate Swelling Verified 01/07/25 11:30 heparin [HEPARIN] Allergy Intermediate ILL Verified 01/07/25 11:30 PLATELETS UNKNOWN heparin (porcine) Allergy Intermediate unkn Verified 01/07/25 11:30 hydrocodone [Vicodin] Allergy Intermediate Hallucinati Verified 01/07/25 11:30 ons tizanidine [From ZANAFLEX] Allergy Intermediate WELTS Verified 01/07/25 11:30 APPEAR ALL OVER BODY tramadol [Ultram] Allergy Intermediate welts Verified 01/07/25 11:30 wheat Allergy Intermediate Swelling Verified 01/07/25 11:30 hydromorphone [Dilaudid] Allergy Mild cold sweats Verified 01/07/25 11:30 levothyroxine sodium Allergy Mild Nausea Verified 01/07/25 11:30 meperidine [From DEMEROL] Allergy Mild n/a Verified 01/07/25 11:30 acetaminophen [From PERCOCET] AdvReac Intermediate UPSET/AGITA Verified 01/07/25 11:30 MICHAEL oxycodone [From PERCOCET] AdvReac Intermediate UPSET/AGITA Verified 01/07/25 11:30 MICHAEL vinegar Allergy Intermediate Swelling Uncoded 01/07/25 11:30 Home Medications ?Medication ?Instructions ?Recorded ?Confirmed ?Last Taken ?Type ascorbate calcium (vitamin C) 500 1,000 mg PO DAILY 06/16/21 01/07/25 Unknown History mg tablet
[2025-01-07 11:33] VITALS: BP 125/71; PULSE 63; RESP 16; TEMP 36.6; O2SAT 96; BMI 23.1
[2025-01-07] MEDS: Lactated Ringers 1,000 ML 100 ML IVCONT (11:44)
--- NOTE | 2025-01-07 12:27 | MHC.SHP ---
Pre-Procedural Eval Section A - 24 Hr Update-Section A only Date of Service: 01/07/25 Section B - Complete if H&P > 30 days Chief Complaint: Unspecified abdominal pain Relevant Family History (Specify if Yes): No Relevant Social History: Tobacco Use Present Medications: see Short Stay Collaborative assessment Medical History: Significant History ( Hypothyroidism Depression with anxiety Vitiligo Abdominal wall hernia Knee pain, left Annual physical exam Head injury Fatigue Acquired hypothyroidism Allergies Colon polyps Retinal detachment Nephrolithiasis) History of Previous Operations: Relevant previous surgery/procedure and date(s) (H/O bone graft H/O: hysterectomy History of lumbar fusion S/P lumbar laminectomy History of kidney stones History of back surgery Hx of removal of neck cyst History of tonsillectomy History of thyroidectomy History of section) Allergies: Allergies Allergy/AdvReac Type Severity Reaction Status Date / Time corn Allergy Intermediate Swelling Verified 01/07/25 11:30 heparin [HEPARIN] Allergy Intermediate ILL Verified 01/07/25 11:30 PLATELETS UNKNOWN heparin (porcine) Allergy Intermediate unkn Verified 01/07/25 11:30 hydrocodone [Vicodin] Allergy Intermediate Hallucinati Verified 01/07/25 11:30 ons tizanidine [From ZANAFLEX] Allergy Intermediate WELTS Verified 01/07/25 11:30 APPEAR ALL OVER BODY tramadol [Ultram] Allergy Intermediate welts Verified 01/07/25 11:30 wheat Allergy Intermediate Swelling Verified 01/07/25 11:30 hydromorphone [Dilaudid] Allergy Mild cold sweats Verified 01/07/25 11:30 levothyroxine sodium Allergy Mild Nausea Verified 01/07/25 11:30 meperidine [From DEMEROL] Allergy Mild n/a Verified 01/07/25 11:30 acetaminophen [From PERCOCET] AdvReac Intermediate UPSET/AGITA Verified 01/07/25 11:30 MICHAEL oxycodone [From PERCOCET] AdvReac Intermediate UPSET/AGITA Verified 01/07/25 11:30 MICHAEL vinegar Allergy Intermediate Swelling Uncoded 01/07/25 11:30 Review of Systems Sugical H&P ROS: Negative: Constitution, Cardiovascular, Respiratory, Neurological, Psychiatric, Hem-Onc, Allergic/Immunologic, Gastrointestinal, Genitourinary, Musculoskeletal, Integumentary, Endocrine and Eyes/Ears/Nose/Throat Exam Surgical H&P Exam: Normal: HEENT, Normal: Heart, Normal: Lungs, Normal: Extremities, Normal: Abdomen, Normal: Skin and Normal: Neurological Plan Diagnosis/Plan: Unchanged I have reviewed the history and physical and performed a pertinent physical examination on my patient. No changes have occurred unless specified. Time Spent With Patient Time: Total time managing care of this patient today ____ minutes.
--- NOTE | 2025-01-07 13:13 | HO.OPN-COLON ---
Colonoscopy Operative Note Operative Note Date of Service: 01/07/25 Narrative: Operative Information Procedure Description: EGD, Colonoscopy Indication: abdominal pain and hx of colon polyps Anesthesia: MAC FLEXIBLE TRANSORAL UPPER GASTROINTESTINAL ENDOSCOPY AND COLONOSCOPY PROCEDURE NOTE UPPER ENDOSCOPY Consent: Indications for the procedure and potential complications of bleeding, perforation, reaction to medications and missed diagnosis were discussed with the patient and informed consent was obtained. Instrument: Olympus GIF H 190 J mid size upper endoscope Monitoring: Vital signs and clinical assessment, continuous EKG monitoring, Pulse oximetry, Carbon Dioxide monitoring and blood pressure monitoring were done throughout the procedure. Procedure: The patient was placed in the left lateral decubitis position and pre-procedure medications were administered and a bite block was placed. The endoscope was inserted into the mouth and advanced under direct vision to the third part of duodenum. A careful inspection was made as the upper endoscope was withdrawn including a retroflexed examination of the proximal stomach; Findings and interventions are described below. Findings: Larynx:normal Esophagus: GE junction at 40 cm, diaphragm hiatus at 40 cm, mild esophagitis, bx taken from GEJ and distal esophagus Stomach: Patchy erythema with bile acid refluxate noted. Biopsies were obtained. Grade 2 flap valve on retroflexed examination of the cardia. Duodenum: moderate severe duodenitis - bx taken Intervention: Biopsies as noted above, COLONOSCOPY Instrument: Olympus variable stiffness pediatric scope 190L Colonoscopy Monitoring: Vital signs and clinical assessment, continuous EKG monitoring, Pulse oximetry, Carbon Dioxide monitoring and blood pressure monitoring were done throughout the procedure. Colon withdrawal time was 10 minutes. Procedure: The patient was placed in the left lateral decubitis position and pre-procedure medications were administered. After a digital rectal examination of the ano-rectum, the video colonoscope was inserted into the rectum and advanced through the colon to the cecum/TI. The colonoscope was slowly withdrawn in a retrograde panoramic fashion and the colon mucosa was carefully examined including a retroflexed view of the rectum. Findings and interventions are described below. Procedure Difficulty:moderate Findings: Terminal Ileum-not intubate due to prep and looping random bx taken from right and left colon in different jars Cecum:normal Ascending Colon: normal Transverse Colon -normal Descending Colon:normal Sigmoid Colon: normal Rectum: Retroflexion with small internal hemorrhoids, grade I Anorectum - normal Colon preparation: [place] Bowel Preparation Scale Right colon; 1-2 Transverse colon: 2- Left colon; 1 (0 = Unprepared colon segment with mucosa not seen due to solid stool that cannot be cleared. 1 = Portion of mucosa of the colon segment seen, but other areas of the colon segment not well seen due to staining, residual stool and/or opaque liquid. 2 = Minor amount of residual staining, small fragments of stool and/or opaque liquid, but mucosa of colon segment seen well. 3 = Entire mucosa of colon segment seen well with no residual staining, small fragments of stool or opaque liquid) Impression and Post Procedure Diagnosis: Endoscopy Findings: duodenitis gastritis esophagitis bile acid reflux Colonoscopy Findings: internal hemorrhoids poor to fair prep Plan: Await Pathology results Repeat Colonoscopy in 6-12 months or earlier if clinically indicated--review prep for next time High fiber diet leaflet avoid straining at stool, epsom salts and sitz bath, anusol supps or cream high dose PPi for 3 month then titrate down smoking cessation avoid nsaids Above findings were reviewed with the patient and relevant handouts were provided if indicated.
[2025-01-07 13:23] VITALS: BP 106/58; PULSE 48; RESP 18; TEMP 36.1; O2SAT 100
[2025-01-07 13:28] VITALS: BP 101/64; PULSE 84; RESP 18; O2SAT 100
[2025-01-07 13:42] VITALS: BP 108/57; PULSE 46; RESP 18; TEMP 36.6; O2SAT 100
== END 2025-01-07 13:57 | disposition home or self-care (01) ==
PROVIDERS: PCP Internal Medicine; Visit Provider Internal Medicine Gastroenterology
PROC: 0DJD8ZZ Inspection of Lower Intestinal Tract, Via Natural or Artificial Opening Endoscopic (ICD-10-PCS; CPT 45378; principal; 2025-01-07 14:00)
DX: R10.9 Unspecified abdominal pain (principal); Z86.0101 Personal history of adenomatous and serrated colon polyps; K64.0 First degree hemorrhoids; K21.9 Gastro-esophageal reflux disease without esophagitis; K29.80 Duodenitis without bleeding; K29.50 Unspecified chronic gastritis without bleeding; K20.80 Other esophagitis without bleeding; K44.9 Diaphragmatic hernia without obstruction or gangrene; L80 Vitiligo; E03.9 Hypothyroidism, unspecified; R53.83 Other fatigue; F41.9 Anxiety disorder, unspecified; N20.0 Calculus of kidney; H33.20 Serous retinal detachment, unspecified eye; Z79.899 Other long term (current) drug therapy; Z88.8 Allergy status to other drugs, medicaments and biological substances; Z91.018 Allergy to other foods; Z98.890 Other specified postprocedural states; F17.210 Nicotine dependence, cigarettes, uncomplicated
CPT/HCPCS: 45380; 43239; 88305; 88313; 88342; J1596; J2003; J2704

== ENCOUNTER → 2025-01-07 10:22 | Outpatient (BNV) | payer MEDICARE, MEDICAID, SELFPAY | PROVIDERS: PCP Internal Medicine; Visit Provider Internal Medicine Gastroenterology | DX: Z12.11 Encounter for screening for malignant neoplasm of colon (principal); Z86.0100 Personal history of colon polyps, unspecified; K64.0 First degree hemorrhoids; Z91.199 Patient's noncompliance with other medical treatment and regimen due to unspecified reason; K29.80 Duodenitis without bleeding; K20.90 Esophagitis, unspecified without bleeding; K29.70 Gastritis, unspecified, without bleeding | CPT/HCPCS: 43239; 45380 ==

== ENCOUNTER 2025-02-16 08:30 | Outpatient (REF) | payer MEDICARE, MEDICAID, SELFPAY | END 2025-02-16 08:31 | disposition home or self-care (01) | LOC: HO.MAMMO 08:30 | PROVIDERS: PCP Internal Medicine; Visit Provider Internal Medicine | DX: Z12.31 Encounter for screening mammogram for malignant neoplasm of breast (principal) | CPT/HCPCS: 77063; 77067 ==

== ENCOUNTER → 2025-02-16 08:45 | Outpatient (BNV) | payer MEDICARE, MEDICAID, SELFPAY | PROVIDERS: PCP Internal Medicine; Visit Provider Internal Medicine | DX: Z12.31 Encounter for screening mammogram for malignant neoplasm of breast (principal) | CPT/HCPCS: 77063; 77067 ==

== ENCOUNTER 2025-03-23 09:08 | Outpatient (REF) | payer MEDICARE, MEDICAID, SELFPAY ==
[2025-03-23 11:33] LABS: MANUAL DIFF FLAG NO
[2025-03-23 12:08] LABS: Basophils Absolute Auto 0.1 X10*3/uL (0.0-0.2); Basophils Percent Auto 0.9 % (0-2); Eosinophils Absolute Auto 0.1 X10*3/uL (0.0-0.4); Eosinophils Percent Auto 2.2 % (0-4); Hematocrit 43.6 % (37.0-47.0); Hemoglobin 14.3 g/dl (12.0-16.0); Imm Gran Abs Auto 0.01 X10*3/uL (0.00-0.03); Imm Gran Pct Auto 0.2 % (0.0-0.4); Lymphocytes Absolute Auto 1.7 X10*3/uL (1.2-4.9); Lymphocytes Percent Auto 31.1 % (20-40); Mean Corpuscular HGB Conc 32.8 g/dl (31.0-35.0); Mean Corpuscular Hemoglobin 31.3 pg (27.0-33.0); Mean Corpuscular Volume 95.4 fL (80.0-98.0); Mean Platelet Volume 11.1 fL (9.4-12.3); Monocytes Absolute Auto 0.3 X10*3/uL (0.1-1.2); Monocytes Percent Auto 5.1 % (2-11); Neutrophils Absolute Auto 3.2 x10*3/uL (2.0-8.3); Neutrophils Percent Auto 60.5 % (45-73); Platelet Count 206 X10*3/uL (160-400); Red Blood Count 4.57 X10*6/uL (4.20-5.50); Red Cell Distribution Width 12.6 % (11.0-16.0); White Blood Count 5.3 X10*3/uL (4.8-10.8)
[2025-03-23 12:39] LABS: Alanine Aminotransferase 19 U/L (0-31); Albumin Level 4.4 g/dL (3.5-5.0); Alkaline Phosphatase 69 U/L (39-117); Anion Gap 12 (12-20); Aspartate Amino Transferase 18 U/L (5-31); Bilirubin Total 0.4 mg/dL (0.0-1.0); Blood Urea Nitrogen 13 mg/dL (9-16); Calcium 9.2 mg/dL (8.4-10.2); Carbon Dioxide 21 mmol/L (22-29); Chloride 113 mmol/L (96-108); Cholesterol 196 mg/dL (<200); Estimated Glomerular Filt Rate > 60; Glucose Fasting 108 mg/dL (60-99); HDL Cholesterol 46 mg/dL (>40); LDL Cholesterol Calculated 128 mg/dL (<100); Potassium 3.8 mmol/L (3.3-5.1); Sodium 142 mmol/L (135-145); Total Protein 6.5 g/dL (6.5-8.0); Triglycerides 111 mg/dL (<150)
[2025-03-23 12:55] LABS: TSH reflex Free T4 0.04 uIU/mL (0.32-4.0)
[2025-03-23 14:11] LABS: Free T4 (Free Thyroxine) 1.28 ng/dL (0.71-1.85)
[2025-03-26 23:33] LABS: Class Almond 0; Class Brazil Nut 0; Class Cashew 0; Class Codfish 0; Class Cow's Milk 0; Class Egg white 0; Class Hazelnut 0; Class Macadamia Nut 0; Class Peanut 0; Class Salmon 0; Class Scallop 0; Class Sesame Seed 0; Class Shrimp 0; Class Soybean 0; Class Tuna 0; Class Walnut 0; Class Wheat 0; F001-IgE Egg White <0.10 kU/L; F002-IgE Milk <0.10 kU/L; F003-IgE Codfish <0.10 kU/L; F004-IgE Wheat <0.10 kU/L; F010-IgE Sesame Seed <0.10 kU/L; F013-IgE Peanut <0.10 kU/L; F014-IgE Soybean <0.10 kU/L; F017-IgE Hazelnut (Filbert) <0.10 kU/L; F018-IgE Brazil Nut <0.10 kU/L; F020-IgE Almond <0.10 kU/L; F024-IgE Shrimp <0.10 kU/L; F040-IgE Tuna <0.10 kU/L; F041 IgE Salmon <0.10 kU/L; F202-IgE Cashew Nut <0.10 kU/L; F256-IgE Walnut <0.10 kU/L; F338-IgE Scallop <0.10 kU/L; F345-IgE Macadmia Nut <0.10 kU/L
== END 2025-03-23 09:09 | disposition home or self-care (01) ==
LOC: HO.LAB 09:08
PROVIDERS: PCP Internal Medicine; Visit Provider Internal Medicine Gastroenterology
DX: Z00.00 Encounter for general adult medical examination without abnormal findings (principal); E03.9 Hypothyroidism, unspecified; E78.5 Hyperlipidemia, unspecified; Z91.018 Allergy to other foods
CPT/HCPCS: 36415; 80053; 80061; 82785; 84439; 84443; 85025; 86003; 99212

== ENCOUNTER 2025-03-23 09:08 | Outpatient (AMB) | payer MEDICARE, MEDICAID, SELFPAY ==
--- NOTE | 2025-03-23 09:09 | A.OFFVIS_ITS ---
Vital Signs 03/23/25 09:12 Height 5 ft 9 in Weight 152 lb 1.903 oz BMI 22.5 BP 134/79 Blood Pressure Location Lt brachial Position Sitting Pulse 59 Intake Visit Reasons: 5 mo f/u Intake Note: Jocelyn presents in the office as a 5 month follow up. CC: Rock hard lump in the epigastric region - states the colonoscopy was not prepped well. She states she is scared to eat because of allergies and the mirror installer told her they were on a metabolic level and was unable to help her. Usually she has snake like stools that are thick like pudding that stick to the toilet. She thinks the MESH from the hernia is effecting it. Rubber Belt Splicer Required: No Allergies corn Allergy (Intermediate, Verified 03/23/25 09:13) Swelling heparin (HEPARIN) Allergy (Intermediate, Verified 03/23/25 09:13) ILL PLATELETS UNKNOWN heparin (porcine) Allergy (Intermediate, Verified 03/23/25 09:13) unkn hydrocodone (Vicodin) Allergy (Intermediate, Verified 03/23/25 09:13) Hallucinations tizanidine (From ZANAFLEX) Allergy (Intermediate, Verified 03/23/25 09:13) WELTS APPEAR ALL OVER BODY tramadol (Ultram) Allergy (Intermediate, Verified 03/23/25 09:13) welts wheat Allergy (Intermediate, Verified 03/23/25 09:13) Swelling hydromorphone (Dilaudid) Allergy (Mild, Verified 03/23/25 09:13) cold sweats levothyroxine sodium Allergy (Mild, Verified 03/23/25 09:13) Nausea meperidine (From DEMEROL) Allergy (Mild, Verified 03/23/25 09:13) n/a soy Allergy (Mild, Verified 03/23/25 09:13) Unknown acetaminophen (From PERCOCET) Adverse Reaction (Intermediate, Verified 03/23/25 09:13) UPSET/AGITATED oxycodone (From PERCOCET) Adverse Reaction (Intermediate, Verified 03/23/25 09:13) UPSET/AGITATED vinegar Allergy (Intermediate, Uncoded 03/23/25 09:13) Swelling HPI HPI 5 mo f/u: Details: 49 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, s/p resection here for f/u RECAP: she had colonoscopy 2023 - several polyps removed--TA, SSA EGD, colo 01/07/25 Endoscopy Findings: duodenitis gastritis esophagitis bile acid reflux Colonoscopy Findings: internal hemorrhoids poor to fair prep CT also done, with no acute findings, right sided kidney stone INTERIM: She has Left mid quad pain and discomfort as before, she has a pain doc, and was recommended to have an trigger point injection but never had it yet she has changed her diet, but wondering about changing PPi as pantorpazole made her sick she has discomfort in epigastric area she has no nausea or vomiting EXAM: GENERAL: The patient is well developed and nontoxic. VITAL SIGNS:see workflow HEENT: Nonicteric sclerae, PERRLA, EOMI. Oropharynx clear. Moist mucous membranes. Conjunctivae appear well perfused. No thyroid mass. CHEST: Chest wall is nontender. HEART: Regular rate and rhythm without murmurs. LUNGS: Clear to auscultation bilaterally. ABDOMEN: Soft, positive bowel sounds, mildly tender left periumbilical area, no organomegaly.no flank tenderness SKIN: No rash, no excessive bruising, petechiae, or purpura. NEUROLOGIC: Cranial nerves II-XII intact without motor/sensory deficit. Psych: normal affect A/P: Abdo pain as above, uncertain etiology, ddx: mesh issue, colonic spasm, myofasxcial paic PLAN: /1 - repeat colo due to poor prep--miralax and gatorade 2. rast testing 3/ change to esomeprazole --maybe add bile acid binder later PFSH Medical History Hypothyroidism Depression with anxiety Vitiligo Abdominal wall hernia Knee pain, left Annual physical exam Head injury Fatigue Acquired hypothyroidism Allergies Colon polyps Retinal detachment Nephrolithiasis Surgical History H/O bone graft H/O: hysterectomy History of lumbar fusion S/P lumbar laminectomy History of kidney stones History of back surgery Hx of removal of neck cyst History of tonsillectomy History of thyroidectomy History of section Family History Father Cancer Mother No problems noted. Brother Substance use disorder Son No problems noted. Daughter No problems noted. Daughter No problems noted. Daughter No problems noted. Social History Housing: House Are you a primary foster care worker to a significant other at home: No Do you presently have visiting nurse or other home services: No Alcohol intake: current Alcohol intake frequency: holidays/special occasions only Patient Tobacco Use Status: Current everyday Tobacco user Cigarette Packs Per Day: 1 Cigarettes Per Day: 20.0 e-Cigarette/Vaping Use: Never Used Substance Use Type: Marijuana service: No Current occupational status: employed Cognitive needs: No Hearing needs: No Vision needs: Yes Physical Exam Vital Signs: Last Vital Signs Pulse 59 03/23/25 09:12 BP 134/79 03/23/25 09:12 BMI result Body Mass Index 22.5 Assessment & Plan Assessment & Plan (1) Abdominal pain: Comment: Left upper quadrant, abdominal pelvic [facility] at [facility] in October 2023, consistent with moderate amount of stool in proximal colon, punctate left lower renal calcifications no obstruction Code(s): R10.9 - Unspecified abdominal pain Category: Medical Plan: as above Orders: Orders Rast Allergen Today Z91.018 - Allergy to other foods Medications: New polyethylene glycol 3350 (Miralax) mix the full container with 64 ounces of gatorade for colonoscopy prep the evening before the test and drink 238 grams PO ONCE 238 grams 0RF esomeprazole magnesium 40 mg PO DAILY 90 caps 2RF Discontinued pantoprazole Discontinued Reason: Doctor's Order 40 mg PO BID 90 tabs 2RF Coding Level of Care Code Est Pt Level 4 (96801) Diagnoses Abdominal pain R10.9
[2025-03-23 09:12] VITALS: BP 134/79; PULSE 59; BMI 22.5
--- OUTSIDE RECORDS SUMMARY | 2025-03-23 09:50 | XMS_ITS | Patient Health Record ---
Author Organization [facility] Christopher agatha [place] Address [address] [place] [address] Care Team Providers Care Pathology Tech Name Role Phone Ying CORCORAN, Yoko Primary Care Provider Gaby Merchant Unavailable [phone] Allergies Allergen (clinical drug ingredient) Drug/Non Drug Allergy documented on EMR Reaction Allergy Type Onset Date Status Perryman, wheat, Gluten, Melida, lettuce, tomatoes (uncoded) stomach issues and discomfort Allergy Active meperidine Demerol Unknown Drug Allergy Active codeine Codeine out of body Drug Allergy Activ e morphine Morphine Unknown Drug Allergy Active injectable steriods rash Drug Allergy Active Adhesive Tape rash Drug Allergy Act wero wheat Unknown Drug Allergy Active Heprin Kills platlets Drug Allergy Ac tive Reason For Referral No Information Medications Medication SIG (Take, Route, Frequency, Duration) Notes Start Date End Date Status Tolnaftate 1 % Activ e Cetirizine HCl 10 MG Orally Active Cyclobenzaprine HCl 10 MG Orally Active Amitiza 24 MCG Orally Activ e Tirosint 125 MCG Orally Act wero Social History Tobacco Use: Social History Observation Description Date Details (start date - stop date) Current Smoker NA - NA Tobacco Use/Smoking Question Answer Notes Are you a: current smoker How many cigarettes a day do you smoke? 11-20 How soon after you wake up do you smoke your fir st cigarette? 6-30 minutes Alcohol Screen Question Answer Notes Did you have a drink containing alcohol in the p ast year? Yes Points 0 Interpretation Negative Tobacco use other than smoking: Question Answer Notes Are you an other tobacco user? No Plan Of Treatment Pending Test Test Name Order Date [id number] Plate 08/13/2018 [id number] Plate 09/06/2018 Insurance Providers Payer Name Payer Address Payer Phone Subscriber Number Group Number Insured Name Patient Relationship to Insured Coverage Start Date Coverage End Date [facility] 65 Medicare Preferred [address] [place] [address] [phone] [id number] Jocelyn Waite Self - patient is the insured Medical (General) History Medical History History ICD Code Cancer Epilepsy Chicken pox Numbness thyroid Hashimotos thyroiditis Vitiligo Surgical History Surgery Date(Month/Year) kidney stones back surgery eye surgery spinal cord stimulator cyst removal cataract surgery Thyroid Surgery parathyroidectomy colon cancer/polyps
== END 2025-03-23 11:50 | disposition home or self-care (01) ==
LOC: HO.HGI 09:09
PROVIDERS: PCP Internal Medicine; Visit Provider Internal Medicine Gastroenterology
DX: R10.9 Unspecified abdominal pain (principal)
CPT/HCPCS: 99214

== ENCOUNTER 2025-06-02 08:37 | Outpatient (AMB) | payer MEDICARE, MEDICAID, SELFPAY ==
--- NOTE | 2025-06-02 08:40 | A.OFFVIS_ITS ---
Vital Signs 06/02/25 08:47 Height 5 ft 9 in Intake Visit Reasons: 6 month f/u Allergies corn Allergy (Intermediate, Verified 03/23/25 09:13) Swelling heparin (HEPARIN) Allergy (Intermediate, Verified 03/23/25 09:13) ILL PLATELETS UNKNOWN heparin (porcine) Allergy (Intermediate, Verified 03/23/25 09:13) unkn hydrocodone (Vicodin) Allergy (Intermediate, Verified 03/23/25 09:13) Hallucinations tizanidine (From ZANAFLEX) Allergy (Intermediate, Verified 03/23/25 09:13) WELTS APPEAR ALL OVER BODY tramadol (Ultram) Allergy (Intermediate, Verified 03/23/25 09:13) welts wheat Allergy (Intermediate, Verified 03/23/25 09:13) Swelling hydromorphone (Dilaudid) Allergy (Mild, Verified 03/23/25 09:13) cold sweats levothyroxine sodium Allergy (Mild, Verified 03/23/25 09:13) Nausea meperidine (From DEMEROL) Allergy (Mild, Verified 03/23/25 09:13) n/a soy Allergy (Mild, Verified 03/23/25 09:13) Unknown acetaminophen (From PERCOCET) Adverse Reaction (Intermediate, Verified 03/23/25 09:13) UPSET/AGITATED oxycodone (From PERCOCET) Adverse Reaction (Intermediate, Verified 03/23/25 09:13) UPSET/AGITATED vinegar Allergy (Intermediate, Uncoded 03/23/25 09:13) Swelling HPI Comments Details: Starting fall [facility] today. Was triggered by check-in kiosk as it asked for emergency contact and does not have one. Under more stress, boyfriend is dealing with some health issues. Few more migraines the past few months, topical lavender helps, not interested in trying medication at this time. Had battery for SC stimulator replaced about 6 weeks ago. No definite seizures. Has some difficulty in biology lab using microscope due to vision. Has poor vision in left eye from previous retinal detachment and was told she has vitreous detachment, following with jacquard loom weaver. Woke confused and groggy in 03/2024 without tongue bite or incontinence. Occasional cramping in lower legs at night. Lumbar pain is much better with SC stimulator. More energy and more a ctive. Saw new physician internist who told her she does not have as many allergies as she previously thought and requested blood test. She has a hard time giving blood. In 2023, she saw urologist in [place], and was treated for chronic kidney infection. Saw surgeon in [place] for abdominal pain, thought it was possible mesh could be scratching and was given option to try injections, but she was unsure. Had colonoscopy with polyps removed. Had bone graft for periodontal disease. Hx of optical migraines, white/bright light followed by blurred vision. Pain in L arm and shoulder, LUE numbness, went to [place] for trigger point injections which did not help. Had recurrence of LBP despite having SC stimulator put in 11/2017. Had abdominal hernia fixed. Developed severe L LBP while going up stairs on 10/19/2016, felt a pop in lower back and had severe pain in L buttock. Has urinary incontinence since then. Was unable to sit or lie down. NCV/EMG showed moderate axonal loss in R peroneal nerve. Had constant L LBP with superimposed stabbing pains many times a day with some intermittent LLE pain and L abdominal pain. Occasional cramping in feet at night, R > L. Had back surgery, fusion both anterior and posterior approach by Dr. Madsen on 01/12/2014, 02/10/2014, and in 01/2015. MRI lumbar spine showed fairly sizable herniated disc at L4-5 which is central and to the right impinging the exiting nerve root. Smaller disc herniation at L5-S1 on right side. Anterior disc herniation at L5-S1. Hx of chronic LBP with lumbar disc disease s/p lumbar discectomy in 2004 and 2006 with no hardware. Hx of seizure disorder possibly in 1989, no seizure recurrence in years and not on medication. Uses gabapentin 600mg PRN only. Occasional dizzy spells. Occasional black spots in vision that does not correct with low blood pressure which she normally has. Had thyroidectomy for thyroid cancer. Was on disability for 6 years and did not work in that length of time. [facility] Medical History (Updated 06/02/25 @ 08:49 by Jenniffer Maurice CNP) Ophthalmic migraine Carpal tunnel syndrome Chronic low back pain Dizziness Seizure disorder Hypothyroidism Depression with anxiety Vitiligo Abdominal wall hernia Knee pain, left Annual physical exam Head injury Fatigue Acquired hypothyroidism Allergies Colon polyps Retinal detachment Nephrolithiasis Surgical History H/O bone graft H/O: hysterectomy History of lumbar fusion S/P lumbar laminectomy History of kidney stones History of back surgery Hx of removal of neck cyst History of tonsillectomy History of thyroidectomy History of section Family History Father Cancer Mother No problems noted. Brother Substance use disorder Son No problems noted. Daughter No problems noted. Daughter No problems noted. Daughter No problems noted. Social History Housing: House Are you a primary medicare specialist to a significant other at home: No Do you presently have visiting nurse or other home services: No Alcohol intake: current Alcohol intake frequency: holidays/special occasions only Patient Tobacco Use Status: Current everyday Tobacco user Cigarette Packs Per Day: 1 Cigarettes Per Day: 20.0 e-Cigarette/Vaping Use: Never Used Substance Use Type: Marijuana service: No Current occupational status: employed Cognitive needs: No Hearing needs: No Vision needs: Yes Review of Systems Const Denies chills, Denies daytime sleepiness, Denies difficulty sleeping, Reports fatigue, Denies fever(s), Denies frequent falls, Denies headache(s), Denies increased appetite, Denies poor appetite, Denies snoring, Denies weakness, Denies weight gain and Denies weight loss Eyes Denies loss of vision ENT Denies vertigo, Denies dizziness, Denies headache(s) and Reports neck pain Card Denies chest pain at rest, Denies chest pain with activity, Denies syncope, Denies leg edema, Denies palpitations, Denies dyspnea and Denies dyspnea on exertion Resp Denies cough, Denies dyspnea, Denies dyspnea on exertion and Denies snoring GI Denies abdominal pain, Denies constipation, Denies heartburn, Denies diarrhea and Denies nausea Denies urinary frequency, Denies urinary incontinence and Denies urinary urgency Musc Denies abnormal gait, Reports back pain, Denies myalgias, Reports arthralgias, Reports neck pain, Denies numbness and Denies tingling Neuro Denies abnormal gait, Denies vertigo, Denies dizziness, Denies syncope, Denies frequent falls, Denies headache(s), Denies lack of coordination, Denies loss of vision, Reports memory loss, Denies numbness, Denies Other visual disturbances, Denies restless legs, Denies seizure-like activity, Denies tingling, Denies paresthesias, Reports tremor(s) and Denies weakness Psych Reports anxiety, Denies depression, Denies auditory hallucinations, Reports memory loss and Denies visual hallucinations Endo Reports fatigue and Denies palpitations Physical Exam Const Other: General Appearance:? normal, in no acute distress. Heart:? S1, S2 normal, no murmurs. Lungs:? clear anteriorly and posteriorly. Musculoskeletal:? normal. Extremities:? no edema. Psych:? alert, oriented, cognitive function intact, cooperative with exam. Neuro Other: Abnormal Neurological Findings:?none.? Mental Status: alert and oriented X 3. Normal attention, orientation, memory, and affect. Cranial Nerves: Pupils are equal, round, and reactive to light. External ocular muscles are intact. Visual duran are full, no ptosis. Face is symmetrical, no facial weakness or droop. Facial sensations are normal. Tongue protrudes in midline. Palate elevates symmetrically. Shoulder shrugging is normal Motor Examination: Normal muscle tone, bulk and strength. No atrophy or fasciculations. No drift of the extended upper extremities. DTR 2+. Plantars are flexor. Sensory Exam: Normal light touch, temperature, pinprick, vibration, and joint- position sensations. Rhomberg sign is absent. Coordination: No ataxia. No titubation. Xknhkl-ef-goqp, szyi-xoqa-mexh test, and rapid alternating movements were normal. Gait Exam: Within normal limits. Cerebellar Signs: Lnfnlb-hz-pzne and azgx-vs-dogy is normal. No dysdiadochokinesia. Extrapyramidal System: No tremor, rigidity with normal facial expressions. No bradykinesia. No bradyphrenia. Normal arm swing and posture. No propulsion or retropulsion. Speech: Normal. No dysphasia or dysarthria. Results Reviewed Results Reviewed: 05/19/24 EEG- WNL. 11/22/20 NCV/EMG UE Normal motor and sensory nerve conduction velocities in the upper extremities. Normal EMG in the left C5-T1 innervated muscles. MRI C spine in [place] [facility] Assessment & Plan Assessment & Plan (1) Ophthalmic migraine: Code(s): G43.109 - Migraine with aura, not intractable, without status migrainosus Category: Medical Plan: She was not interested in starting medication at this time. (2) Seizure disorder: Code(s): G40.909 - Epilepsy, unspecified, not intractable, without status epilepticus Category: Medical Plan . Coding Level of Care Code Est Pt Level 4 (32322) Diagnoses Ophthalmic migraine G43.109 Seizure disorder G40.909
--- OUTSIDE RECORDS SUMMARY | 2025-06-02 09:20 | XMS_ITS | Encounter Summary ---
Author Organization [facility] Address [address] [place] [address] [place] [address] Phone Care Team Providers Care Digital Program Manager Name Role Phone Yoko He MD Primary Care Provider [phone] Encounter Details Date Type Department Care Team (Late st Contact Info) Description 03/24/2021 Procedure Pass [facility] MR Imaging, [place] [address] [place] [address] Social History Tobacco Use Types Packs/Day Years Used Date Smoking Tobacco: Former Cigarettes 1 20 Smokeless Tobacco: Never Alcohol Use Standard Drinks/Week Comments Yes 1 (1 standard drink = 0.6 oz pur e alcohol) OCCASIONALLY - 1 per month Comments No Sex and Gender Information Value Date Recorded Sex Assigned at Female 04/13/2021 12:49 PM EDT Legal Sex Female 7:36 PM EST Gender Identity Female 04/13/2021 12:49 PM EDT Sexual Orientation Straight 04/13/2021 12 :49 PM EDT documented as of this encounter Plan of Treatment Not on file documented as of this encounter Visit Diagnoses Not on filedocumented in this encounter Care Teams Digital Program Manager Relationship Specialty Start Date End Date Yoko He MD [address] [place] [address] PCP - General Internal Medicine 04/23/19 documented as of this encounter Additional Source Comments The information contained in this document represents components of the legal health record. It is not the complete legal health record.[facility]
--- OUTSIDE RECORDS SUMMARY | 2025-06-02 09:20 | XMS_ITS | Encounter Summary ---
Author Organization [facility] Address [address] [place] [address] Phone Care Team Providers Care Board Certified Music Therapist Name Role Phone Yoko He MD Primary Care Provider [phone] Reason for Visit * Reason Comments Medication Refill Encounter Details Date Type Department Care Team (Late st Contact Info) Description 05/05/2021 Refill [facility] Pain Management [address] [place] [address] Sabina Braxton MD [address] [facility] 3rd [place] [address] [email or web address] Medication Refill Social History Tobacco Use Types Packs/Day Years [...] on filedocumented in this encounter Care Teams Board Certified Music Therapist Relationship Specialty Start Date End Date Yoko He MD [facility] [place] [address] PCP - General Internal Medicine 04/23/19 documented as of this encounter Additional Source Comments The information contained in this document represents components of the legal health record. It is not the complete legal health record.[facility]
--- OUTSIDE RECORDS SUMMARY | 2025-06-02 09:21 | XMS_ITS | Encounter Summary ---
Author Organization [facility] Address [address] [place] [address] Drive [address] [place] [address] Phone Care Team Providers Care Health Policy Analyst Name Role Phone Yoko He MD Primary Care Provider [phone] Encounter Details Date Type Department Care Team (Late st Contact Info) Description 04/30/2019 Procedure Pass [facility] Periop 1st floor [address] [place] [address] Social History Tobacco Use Types Packs/Day Years [...] on filedocumented in this encounter Care Teams Health Policy Analyst Relationship Specialty Start Date End Date Yoko He MD [address] [place] [address] PCP - General Internal Medicine 04/23/19 documented as of this encounter Additional Source Comments The information contained in this document represents components of the legal health record. It is not the complete legal health record.[facility]
--- OUTSIDE RECORDS SUMMARY | 2025-06-02 09:21 | XMS_ITS | Encounter Summary ---
Author Organization [facility] Address [address] [place] [address] [place] [address] Phone Care Team Providers Care Rotary Engraver Name Role Phone Yoko He MD Primary Care Provider [phone] Encounter Details Date Type Department Care Team (Late st Contact Info) Description 04/10/2025 Procedure Pass [facility] Periop 1st floor [address] [place] [address] Social History Tobacco Use Types Packs/Day Years Used Date Smoking Tobacco: Every Day Cigarettes 1 15.7 Started: 2009 Smokeless Tobacco: Never Alcohol Use Standard Drinks/Week Comments Not Currently 0 (1 standard drink = 0.6 oz pur e alcohol) OCCASIONALLY - 1 per month Education Answer Date Recorded Are you interested in more education? Not on jessica e 01/25/2023 Are you concerned about learning? Not on file 01/25/2023 No 01/25/2023 No 01/25/2023 Digital Access Answer Date Recorded No 02/26/2023 No 02/26/2023 Reliable internet access at home? Not on file 02/26/2023 Device with a working camera? Not on file Intimate Partner Violence Answer Date R ecorded Are you denied basic needs s uch as food, clothing, or medical care? No 04/10/2025 In the past 12 months have y ou been in a relationship with a person who hurts, threatens, or tries to control you? No 04/10/2025 Are you denied basic needs s uch as food, clothing, or medical care? No 04/10/2025 In the past 12 months have y ou been in a relationship with a person who hurts, threatens, or tries to control you? No 04/10/2025 Comments No Sex and Gender Information Value [...] on filedocumented in this encounter Care Teams Rotary Engraver Relationship Specialty Start Date End Date Yoko He MD [facility] [place] [address] PCP - General Internal Medicine 04/23/19 documented as of this encounter Additional Source Comments The information contained in this document represents components of the legal health record. It is not the complete legal health record.[facility]
--- OUTSIDE RECORDS SUMMARY | 2025-06-02 09:21 | XMS_ITS | Clinical Summary ---
Author Organization [facility] Address [address] [place] [address] Phone Care Team Providers Care Microsoft Exchange Architect Name Role Phone Yoko He MD Primary Care Provider [phone] Allergies Active Allergy Reactions Criticality Noted Date Comments [place] Containing Products GI Upset Medium 04/23/2019 Abdominal bloating Demerol (Meperidine) Unknown Medium 11/15/2016 Pt is unaware Dilaudid (Hydromorphone) Angioedema Medium 11/15/2016 Tolerates po form..the patient. States no angioedema Enoxaparin Sodium Unknown 03/14/2011 On DOS 04/30/19 denied being allergic to lovenox Heparin Analogues Thrombocytopenia High 11/15/2016 Destroys platlets Levothyroxine 04/30/2019 Pt avoids as states wheat containing, also can not tolerate synthroid stating it caused SOB Percocet (Oxycodone-Acetaminop hen) Mental Status Change Medium 11/15/2016 Pt feels like she is hallucinating Soy 01/14/2025 Tylenol (Acetaminophen) Other (See Comments) 11/15/2016 No thyroid Vegetable Derived GI Upset Medium 04/23/2019 ALL FRUITS AND VEGETABLES - Allergy tested +.. Has stomach bloating and pain. Avoids all fruits and vegetables. Vioxx (Rofecoxib) Rash Low 11/15/2016 Wheat GI Upset Medium 04/23/2019 And bloating Medications levothyroxine (TIROSINT) 150 mcg CapIndications:ad junct to surgery or radiotherapy for thyroid carcinoma,125 ALT WITH 137 112 mcg. 6 days a week Indications: additional treatment for thyroid cancer, 125 ALT WITH 137 Active Bacillus coagulans/inulin (PROBIOTIC WITH PREBIOTIC ORAL) Take by mouth. Active esomeprazole (NEXIUM) 40 MG capsule Take 40 mg by mouth daily before breakfast. Active fluticasone propionate (FLONASE) 50 mcg/actuation nasal spray 1 spray by Nasal route daily. 5 Active oxyCODONE 5 MG immediate release tablet Take 1 tablet (5 mg total) by mouth every 6 (six) hours as needed for pain (specific location in comments). Partial fill ok - post surgical pain 10 tablet 5 Active oxyCODONE 5 MG immediate release tablet Take 1 tablet (5 mg total) by mouth every 4 (four) hours as needed for pain (specific location in comments). Please take 1 tablet (5 mg) every 4-6 hours as needed for continued post-operative pain. If pain starts to subside, can take every 6-8 hours as needed until we see you for your post-operative visit. 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 Seizure Overview (04/23/2019): No seizures since '08. Takes Gabapentin for RLS Constipation Colon cancer Overview (04/23/2019): Colectomy, no chemo Spinal cord stimulator status Overview (04/23/2019): IN PLACE Encounters Date Type Department Care Team Description 04/23/2025 10:39 AM EDT - 04/23/2025 11:59 PM EDT Hospital Encounter [facility] [place] [address] Fredis Nuñez MD, ZAIDA Discharge Disposition: Home or Self Care 04/19/2025 Telephone [facility] [address] [address] , Caio Rico MD 04/16/2025 Telephone [facility] [address] [address] , Caio Rico MD 04/16/2025 Orders Only [facility] [address] [place] [address] , Caio Rico MD 04/16/2025 Telephone [facility] [address] [place] [address] Millicent Gutierrez 04/10/2025 11:28 AM EDT Anesthesia Event [address] [address] Rashid Ashby MD [place], Nickisha Ann-Marie, NP 04/10/2025 10:32 AM EDT - 04/10/2025 12:16 PM EDT Surgery [address] [address] Fredis Nuñez MD, ZAIDA REPLACEMENT NEUROSTIMULATOR GENERATOR BATTERY 04/10/2025 8:06 AM EDT - 04/10/2025 2:25 PM EDT Hospital Encounter [address] [address] Fredis Nuñez MD, ZAIDA Discharge Disposition: Home or Self Care 04/10/2025 Procedure Pass [address] [address] 04/08/2025 2:10 PM EDT Pre-Admission Testing [address] [address] Fredis Nuñez MD, ZAIDA 04/07/2025 Telephone [facility] [address] [place] [address] Fredis Nuñez MD, ZAIDA 04/06/2025 10:03 AM EDT - 04/06/2025 11:59 PM EDT Hospital Encounter [facility] [address] [place] [address] Sabina Braxton MD Discharge Disposition: Home or Self Care 04/06/2025 Orders Only [facility] [address] [place] [address] Caio Parnell MD 04/06/2025 Orders Only [facility] [address] [place] [address] Fredis Nuñez MD, ZAIDA Ilioinguinal neuralgia of left side (Primary Dx) from Last 3 Months Immunizations Immunization Administration Dates Next Due Hepatitis B Adult 05/26/2019,11/26/2018,10/29/19 19 Td (adult),2 Lf Tetanus Toxo id, PF, Adsorbed 04/30/2006 Td, unspecified formulation 02/27/2001 Tdap 12/18/2011 Family History Medical History Relation Comments Diabetes Maternal Grandfather Diabetes Mother 1 Diabetes mellitus Mother 3 Relation Status Comments Maternal Grandfather Mother 1 Mother 2 Alive Mother 3 Social History Tobacco Use Types Packs/Day Years Used Date Smoking Tobacco: Every Day Cigarettes 1 15.7 Started: 2009 Smokeless Tobacco: Never Tobacco Cessation:Ready to Q uit: No; Counseling Given: No Alcohol Use Standard Drinks/Week Comments Not Currently [...] as food, clothing, or medical care? No 04/23/2025 In the past 12 months have y ou been in a relationship with a person who hurts, threatens, or tries to control you? No 04/23/2025 Are you denied basic needs s uch as food, clothing, or medical care? No 04/23/2025 In the past 12 months have y ou been in a relationship with a person who hurts, threatens, or tries to control you? No 04/23/2025 Comments No Sex and Gender Information Value Date Recorded Sex Assigned at Female 04/13/2021 12:49 PM EDT Legal Sex Female 7:36 PM EST Gender Identity Female 04/13/2021 12:49 PM EDT Sexual Orientation Straight 04/13/2021 12 :49 PM EDT Last Filed Vital Signs Vital Sign Reading Time Taken Comments Blood Pressure 100/66 04/23/2025 10:52 AM EDT Pulse 68 04/23/2025 10:52 AM EDT Temperature 36.8 C (98.2 F) 04/10/2025 1:33 PM EDT Respiratory Rate 22 04/10/2025 2:00 PM EDT Oxygen Saturation 96% 04/23/2025 10:52 AM EDT Inhaled Oxygen Concentration - - Weight 71.7 kg (158 lb) 04/10/2025 9:14 AM EDT Height 175.3 cm (5' 9 ) 04/10/2025 9:14 AM EDT Body Mass Index 23.33 04/10/2025 9:14 AM EDT Plan of Treatment Health Maintenance Due Date Last Done Comments LIPID PANEL 1977 TSH LEVEL 1977 HEPATITIS C SCREENING 1995 HIV ONE-TIME SCREENING (18-6 5 YEARS) 1995 PNEUMOCOCCAL VACCINES (0-49 years) (1 of 2 - PCV) 1996 MAMMOGRAM 2017 PAP SMEAR 08/21/2017 08/21/2014 Adult Td,Tdap Booster 12/17/2021 12/18/2011 , 04/30/2006, 02/27/2001 COLOGUARD 2022 COLONOSCOPY 2022 COLORECTAL CANCER SCREENING 2022 FIT TEST 2022 FOBT 2022 SIGMOIDOSCOPY 2022 VIRTUAL COLONOSCOPY 2022 COVID-19 VACCINE (1 - 2023-2 5 season) 2024 DEPRESSION SCREENING 12/17/2024 12/18/2023 INFLUENZA VACCINE (#1) 2025 SMOKING Hx and SMOKELESS TOBACCO SCREENING 04/23/2026 04/23/2025 HEPATITIS A VACCINES Aged Out No long er eligible based on patient's age to complete this topic HIB VACCINES Aged Out No longer eligi ble based on patient's age to complete this topic MENINGOCOCCAL VACCINES (ACWY) Aged Out No longer eligible based on patient's age to complete this topic MENINGOCOCCAL VACCINES (B) Aged Out N o longer eligible based on patient's age to complete this topic Medical Devices Implanted Type Area Java Security Architect Device Identifier Shelf Expiration Date Model / Serial / Lot Kit Lead Neurostimulator 60cm [id number] Restore - [id number] Implanted:Qty: 1 on 11/22/2017 [facility] [employer] 10/19/2020 [id number] / / [id number] 11 Kit Lead Neurostimulator 60cm [id number] Restore - [id number] Implanted:Qty: 1 on 11/22/2017 by Fredis Nuñez MD, ZAIDA at [facility] SMDA N/A: Back [employer] 10/19/2020 [id number] / / [id number] Mesh Surgical 15cm 8 Hernia Prolene Polypropylene Nonabsorbable Repair Bx/6ea - [id number] Implanted:Qty: 1 on 04/30/2019 by Sal Colorado MD, MS at [facility] STANDARD N/A: Abdomen JNJ ETHICON / DIVISION OF J 03/30/2023 [id number] / / [id number] Left Eyeball Buckle Lt. Opthal. Lense Generator Neurostimulator Intellis Battery - [id number] Implanted:Qty: 1 on 11/22/2017 by Fredis Nuñez MD, ZAIDA at [facility] Left: Spine Lumbar [employer] 10/28/2018 [id number] / [id number] / Implantable Pulse Generator Closed Loop Ins Ngrc-Ecaps Mri - [id number] Implanted:Qty: 1 on 04/10/2025 by Fredis Nuñez MD, ZAIDA at [facility] N/A: Spine Lumbar [employer] 01/26/2026 [id number] / [id number] / Procedures Procedure Name Priority Date/Time Associated Diagnosis Comments NC INSJ/RPLCMT SPINAL NPG/RCVR POCKET CRTJ&CONNJ 04/10/2025 11:10 AM EDT Ilioinguinal neuralgia of left side Special Needs SCT: 60m Psychodramatist: [id number] for new generator [employer] If not, I can do may from Last [address] [place] [address] [place] [address] MEDICARE PPO BLUE REPLACEMENT CIG[employer] DENTAL Care Teams Microsoft Exchange Architect Relationship Specialty Start Date End Date Yoko He MD [facility] [address] [address] PCP - General Internal Medicine 04/23/19 Additional Source Comments The information contained in this document represents components of the legal health record. It is not the complete legal health record.[facility]
--- OUTSIDE RECORDS SUMMARY | 2025-06-02 09:21 | XMS_ITS | Encounter Summary ---
Author Organization [facility] Address [address] [place] [address] Phone Care Team Providers Care Bench Precision Assembler Name Role Phone Unknown, Unknown Primary Care Provider Jenniffer Mcgarry DO Primary Care Provider Yoko He MD Primary Care Provider [phone] Yoko He MD Primary Care Provider [phone] Encounter Details Date Type Department Care Team (Late st Contact Info) Description 11/22/2017 Ancillary Orders [facility] [address] [place] [address] Fredis Nuñez MD, ZAIDA [address] [address] [email or web address] Pain Social History Tobacco Use Types Packs/Day Years Used Date Smoking Tobacco: Every Day Cigarettes 1 20 Smokeless Tobacco: Never Comments:PT IS TRYING TO CUT DOWN Alcohol Use Standard Drinks/Week Comments Yes 1 (1 standard drink = 0.6 oz pur e alcohol) OCCASIONALLY Comments Unknown Sex and Gender Information Value Date Recorded Sex Assigned at Female 04/13/2021 12:49 PM EDT Legal Sex Female 7:36 PM EST Gender Identity Female 04/13/2021 12:49 PM EDT Sexual Orientation Straight 04/13/2021 12 :49 PM EDT documented as of this encounter Plan of Treatment Not on file documented as of this encounter Results * [place] Fluoroscopy Less Than 1 Hour (11/22/2017 4:25 PM EST) Narrative ARAMIS - 11/22/2017 4:27 PM EST Fluoroscopy was provided during this procedure. us Fredis Nuñez MD, ZAIDA IMG FL MISC Final Result ARAMIS documented in this encounter Visit Diagnoses Diagnosis Pain Generalized pain Pain Generalized pain documented in this encounter Care Teams Bench Precision Assembler Relationship Specialty Start Date End Date Unknown, Unknown, MD PCP - General 11/22/17 12/19/17 Jenniffer Najera DO [address] [place] [address] [email or web address] PCP - General Family Medicine 12/20/17 Yoko He MD [address] [facility] [place] [address] PCP - General Internal Medicine 03/18/19 03/18/19 Yoko He MD [facility] [place] [address] PCP - General Internal Medicine 04/23/19 documented as of this encounter Additional Source Comments The information contained in this document represents components of the legal health record. It is not the complete legal health record.[facility]
--- OUTSIDE RECORDS SUMMARY | 2025-06-02 09:21 | XMS_ITS | Encounter Summary ---
Author Organization [facility] Address [address] [place] [address] Phone Care Team Providers Care Mobility Specialist Name Role Phone Unknown, Unknown Primary Care Provider Jenniffer Mcgarry DO Primary Care Provider Yoko He MD Primary Care Provider [phone] Yoko He MD Primary Care Provider [phone] Encounter Details Date Type Department Care Team (Late st Contact Info) Description 11/22/2017 Procedure Pass [facility] Periop 1st floor [address] [place], [place] [id number] Social History Tobacco Use Types Packs/Day Years [...] on filedocumented in this encounter Care Teams Mobility Specialist Relationship Specialty Start Date End Date Unknown, Unknown, PCP - General 11/22/17 12/19/17 Jenniffer Najera DO [address] [place] [address] [email or web address] PCP - General Family Medicine 12/20/17 Yoko He MD [facility] [place] [address] PCP - General Internal Medicine 03/18/19 03/18/19 Yoko He MD [address] [facility] [place] [address] PCP - General Internal Medicine 04/23/19 documented as of this encounter Additional Source Comments The information contained in this document represents components of the legal health record. It is not the complete legal health record.[facility]
--- OUTSIDE RECORDS SUMMARY | 2025-06-02 09:21 | XMS_ITS | Patient Health Record ---
Author [facility] [place] Address [address] [facility] [place] [address] Care Team Providers Care Warp Dyeing Vat Tender Name Role Phone Ying CORCORAN, Yoko Primary Care Provider Gaby Merchant Unavailable [phone] Allergies Allergen (clinical drug ingredient) Drug/Non Drug Allergy documented on EMR Reaction Allergy Type Onset Date Status [place], wheat, Gluten, Melida, lettuce, tomatoes (uncoded) stomach [...] Treatment Pending Test Test Name Order Date [id number] Plate 08/13/2018 [id number] Plate 09/06/2018 Insurance Providers Payer Name Payer Address Payer Phone Subscriber Number Group Number Insured Name Patient Relationship to Insured Coverage Start Date Coverage End Date [facility] 65 Medicare Preferred [address] [place] [address] [id number] Jocelyn Waite Self - patient is the insured Medical (General) History Medical History History ICD Code Cancer Epilepsy Chicken pox Numbness thyroid Hashimotos thyroiditis Vitiligo Surgical History Surgery Date(Month/Year) kidney stones back surgery eye surgery spinal cord stimulator cyst removal cataract surgery Thyroid Surgery parathyroidectomy colon cancer/polyps
--- OUTSIDE RECORDS SUMMARY | 2025-06-02 09:21 | XMS_ITS | Encounter Summary ---
Author Organization [facility] Address [address] [place] [address] Phone Care Team Providers Care Crnp Name Role Phone CarollorenasamanWinter holland DO Primary Car e Provider Jenniffer Najera DO Primary Care Provider Deedee Hughes SCREEDMAN/LABORER Unavailable Kahlil Romeo MD Unavailable Ana Katz SCREEDMAN/LABORER Unavailable Wan Kaiser MD Unavailable Megan Sanchez DO Unavailable Luis Huerta MD Unavailable [phone] Jenniffer Najera DO Primary Care Provider Yoko He MD Primary Care Provider [phone] Unknown, Unknown Primary Care Provider Jenniffer Mcgarry DO Primary Care Provider Yoko He MD Primary Care Provider [phone] Yoko He MD Primary Care Provider Encounter Details Date Type Department Care Team (Late st Contact Info) Description 11/15/2016 Procedure Pass [facility] CT Imaging, [place] [address] [place] [address] Social History Tobacco Use Types Packs/Day Years Used Date Smoking Tobacco: Every Day Cigarettes 1 20 Smokeless Tobacco: Never Comments Unknown Sex and Gender Information Value [...] on filedocumented in this encounter Care Teams Crnp Relationship Specialty Start Date End Date Winter Hauser DO [address] [place] [address] PCP - General Internal Medicine 11/03/16 03/29/17 Jenniffer Najera DO [address] [place] [address] [email or web address] PCP - General Family Medicine 03/30/17 08/05/17 Jenniffer Najera DO [address] [place] [address] [email or web address] PCP - General Family Medicine 08/06/17 09/11/17 Yoko He MD [facility] [place] [address] PCP - General Internal Medicine 09/12/17 11/21/17 Unknown, [place], [address] [facility] [place] [address] PCP - General 11/22/17 12/19/17 Jenniffer Najera DO [address] [place] [address] [email or web address] PCP - General Family Medicine 12/20/17 03/17/19 Yoko He MD [facility] [place] [address] PCP - General Internal Medicine 03/18/19 03/18/19 Yoko He MD [address] [place] [address] [address] [place] [address] PCP - General Internal Medicine 04/23/19 Deedee Hughes NP [address] [place] [address] Historical LMR Provider 07/19/1709/11 Kahlil Romeo MD [address] [place] [address], [facility] [address] [place] [address] [email or web address] Historical LMR Provider 07/19/17 09/11/17 Ana Katz NP [address] [place] [address] Historical LMR Provider 07/19/1709/11 Wan Kaiser MD [address] [place] [address] [place] [address] Historical LMR Provider 07/19/1709/11 Megan Sanchez DO [address] [place] [address] Historical LMR Provider 07/19/1709/11 Luis Huerta MD [address] [place] [address] Historical LMR Provider 07/19/1709/11 documented as of this encounter Additional Source Comments The information contained in this document represents components of the legal health record. It is not the complete legal health record.[facility]
--- OUTSIDE RECORDS SUMMARY | 2025-06-02 09:21 | XMS_ITS | Encounter Summary ---
Author Organization [facility] Address [address] [place] [address] [place] [address] Phone Care Team Providers Care Procedure Rn Name Role Phone Yoko He MD Primary Care Provider [phone] Encounter Details Date Type Department Care Team (Late st Contact Info) Description 11/21/2023 Procedure Pass [facility] [address] [place] [address] Social History Tobacco Use Types Packs/Day Years [...] with a working camera? Not on file Comments No Sex and Gender Information Value [...] on filedocumented in this encounter Care Teams Procedure Rn Relationship Specialty Start Date End Date Yoko He MD [address] [facility] [place] [address] PCP - General Internal Medicine 04/23/19 documented as of this encounter Additional Source Comments The information contained in this document represents components of the legal health record. It is not the complete legal health record.[facility]
== END 2025-06-02 09:32 | disposition home or self-care (01) ==
LOC: HO.HSM 08:38
PROVIDERS: PCP Internal Medicine; Referring Provider Internal Medicine; Visit Provider Registered Nurse
DX: G43.109 Migraine with aura, not intractable, without status migrainosus (principal); G40.909 Epilepsy, unspecified, not intractable, without status epilepticus
CPT/HCPCS: 99214

== ENCOUNTER → 2025-06-02 08:37 | Outpatient (BNVA) | payer MEDICARE, MEDICAID, SELFPAY | PROVIDERS: PCP Internal Medicine; Referring Provider Internal Medicine; Visit Provider Registered Nurse | DX: G43.109 Migraine with aura, not intractable, without status migrainosus (principal); G40.909 Epilepsy, unspecified, not intractable, without status epilepticus | CPT/HCPCS: 99212 ==

== ENCOUNTER 2025-06-04 07:42 | Outpatient (AMB) | payer MEDICARE, MEDICAID, SELFPAY ==
--- OUTSIDE RECORDS SUMMARY | 2025-06-04 07:46 | XMS_ITS | Encounter Summary ---
Author Organization [facility] Address [address] [place] [address] Phone Care Team Providers Care Behavioral Health Associate Name Role Phone CarollorenasamanWinter holland DO Primary Car e Provider Jenniffer Najera DO Primary Care Provider Deedee Hughes EAR MOLD LABORATORY TECHNICIAN Unavailable Kahlil Romeo MD Unavailable Ana Katz EAR MOLD LABORATORY TECHNICIAN Unavailable Wan Kaiser MD Unavailable Megan Sanchez DO Unavailable Luis Huerta MD Unavailable [phone] Jenniffer Najera DO Primary Care Provider Yoko He MD Primary Care Provider [phone] Unknown, Unknown Primary Care Provider Jenniffer Mcgarry DO Primary Care Provider Yoko He MD Primary Care Provider Yoko He MD Primary Care Provider Encounter Details Date Type Department Care Team (Late st Contact Info) Description 11/15/2016 Procedure Pass [facility] CT Imaging, [place] [address] [place] [address] Social History Tobacco Use Types Packs/Day Years [...] on filedocumented in this encounter Care Teams Behavioral Health Associate Relationship Specialty Start Date End Date Winter Hauser DO [address] [facility] [place] [address] PCP - General Internal Medicine 11/03/16 03/29/17 Jenniffer Najera DO [address] [place] [address] [email or web address] PCP - General Family Medicine 03/30/17 08/05/17 Jenniffer Najera DO [address] [place] [address] [email or web address] PCP - General Family Medicine 08/06/17 09/11/17 Yoko He MD [facility] [place] [address] PCP - General Internal Medicine 09/12/17 11/21/17 Unknown, [place], [address] [facility] [place] [address] PCP - General 11/22/17 12/19/17 Jenniffer Najera DO [address] [place] [address] [email or web address] PCP - General Family Medicine 12/20/17 03/17/19 Yoko He MD [facility] [place] [address] PCP - General Internal Medicine 03/18/19 03/18/19 Yoko He MD [address] [place] [address] [address] [place] [address] PCP - General Internal Medicine 04/23/19 Deedee Hughes NP [address] [place] [address] Historical LMR Provider 07/19/1709/11 Kahlil Romeo MD [address] [place] [address], [facility] [address] [place] [address] [email or web address] Historical LMR Provider 07/19/17 09/11/17 Ana Katz NP [address] [place] [address] Historical LMR Provider 07/19/1709/11 Wan Kaiser MD [address] [place] [address] [place] [address] Historical LMR Provider 07/19/1709/11 Megan Sanchez DO [address] [place] [address] Historical LMR Provider 07/19/1709/11 Luis Huerta MD [address] [place] [address] Historical LMR Provider 07/19/1709/11 documented as of this encounter Additional Source Comments The information contained in this document represents components of the legal health record. It is not the complete legal health record.[facility]
--- OUTSIDE RECORDS SUMMARY | 2025-06-04 07:46 | XMS_ITS | Patient Health Record ---
Author [facility] [place] Address [address] [facility] [place] [address] Care Team Providers Care Stitch Marker Name Role Phone Ying CORCORAN, Yoko Primary Care Provider Gaby Merchant Unavailable [phone] Allergies Allergen (clinical drug ingredient) Drug/Non Drug Allergy documented on EMR Reaction Allergy Type Onset Date Status [place], wheat, Gluten, Melida, lettuce, tomatoes (uncoded) stomach [...] Treatment Pending Test Test Name Order Date [id number] Plate 08/13/2018 [id number] Plate 09/06/2018 Insurance Providers Payer Name Payer Address Payer Phone Subscriber Number Group Number Insured Name Patient Relationship to Insured Coverage Start Date Coverage End Date [facility] 65 Medicare Preferred [address] [place] [address] [id number] Jocelyn Waite Self - patient is the insured Medical (General) History Medical History History ICD Code Cancer Epilepsy Chicken pox Numbness thyroid Hashimotos thyroiditis Vitiligo Surgical History Surgery Date(Month/Year) kidney stones back surgery eye surgery spinal cord stimulator cyst removal cataract surgery Thyroid Surgery parathyroidectomy colon cancer/polyps
--- OUTSIDE RECORDS SUMMARY | 2025-06-04 07:46 | XMS_ITS | Encounter Summary ---
Author Organization [facility] Address [address] [place] [address] [place] [address] Phone Care Team Providers Care Associate Professor Of Economics Name Role Phone Yoko He MD Primary Care Provider [phone] Encounter Details Date Type Department Care Team (Late st Contact Info) Description 11/21/2023 Procedure Pass [facility] [address] [place] [address] Social History Tobacco Use Types Packs/Day Years [...] on filedocumented in this encounter Care Teams Associate Professor Of Economics Relationship Specialty Start Date End Date Yoko He MD [address] [facility] [address] PCP - General Internal Medicine 04/23/19 documented as of this encounter Additional Source Comments The information contained in this document represents components of the legal health record. It is not the complete legal health record.[facility]
--- OUTSIDE RECORDS SUMMARY | 2025-06-04 07:46 | XMS_ITS | Encounter Summary ---
Author Organization [facility] Address [address] [place] [address] Phone Care Team Providers Care High School Special Education Teacher Name Role Phone Yoko He MD Primary Care Provider [phone] Reason for Visit * Reason Comments Medication Refill Encounter Details Date Type Department Care Team (Late st Contact Info) Description 05/05/2021 Refill [facility] Pain Management [address] [facility] [address] [place] [address] Sabina Braxton MD [address] [facility] 3rd [place] [address] [email or web address] Medication Refill Social History Tobacco Use Types [...] on filedocumented in this encounter Care Teams High School Special Education Teacher Relationship Specialty Start Date End Date Yoko He MD [facility] [place] [address] PCP - General Internal Medicine 04/23/19 documented as of this encounter Additional Source Comments The information contained in this document represents components of the legal health record. It is not the complete legal health record.[facility]
--- OUTSIDE RECORDS SUMMARY | 2025-06-04 07:46 | XMS_ITS | Encounter Summary ---
Author Organization [facility] Address [address] [place] [address] Phone Care Team Providers Care Gold Miner Name Role Phone Unknown, Unknown Primary Care Provider Jenniffer Mcgarry DO Primary Care Provider Yoko He MD Primary Care Provider [phone] Yoko He MD Primary Care Provider [phone] Encounter Details Date Type Department Care Team (Late st Contact Info) Description 11/22/2017 Ancillary Orders [facility] [address] [place] [address] Fredis Nuñez MD, ZAIDA [address] [address] [email or web address] Pain Social History Tobacco Use Types Packs/Day [...] pain documented in this encounter Care Teams Gold Miner Relationship Specialty Start Date End Date Unknown, Unknown, MD PCP - General 11/22/17 12/19/17 Jenniffer Najera DO [address] [place] [address] [email or web address] PCP - General Family Medicine 12/20/17 Yoko He MD [address] [facility] [place] [address] PCP - General Internal Medicine 03/18/19 03/18/19 Yoko He MD [facility] [place] [address] PCP - General Internal Medicine 04/23/19 documented as of this encounter Additional Source Comments The information contained in this document represents components of the legal health record. It is not the complete legal health record.[facility]
--- OUTSIDE RECORDS SUMMARY | 2025-06-04 07:46 | XMS_ITS | Encounter Summary ---
Author Organization [facility] Address [address] [place] [address] [place] [address] Phone Care Team Providers Care Youth Nutritional Monitor Name Role Phone Yoko He MD Primary Care Provider [phone] Encounter Details Date Type Department Care Team (Late st Contact Info) Description 03/24/2021 Procedure Pass [facility] MR Imaging, [place] [address] [place] [address] Social History Tobacco Use Types Packs/Day Years [...] on filedocumented in this encounter Care Teams Youth Nutritional Monitor Relationship Specialty Start Date End Date Yoko He MD [address] [facility] [address] [place] [address] PCP - General Internal Medicine 04/23/19 documented as of this encounter Additional Source Comments The information contained in this document represents components of the legal health record. It is not the complete legal health record.[facility]
--- OUTSIDE RECORDS SUMMARY | 2025-06-04 07:46 | XMS_ITS | Encounter Summary ---
Author Organization [facility] Address [address] [place] [address] [place] [address] Phone Care Team Providers Care Forestry And Wildlife Manager Name Role Phone Yoko He MD Primary Care Provider [phone] Encounter Details Date Type Department Care Team (Late st Contact Info) Description 04/10/2025 Procedure Pass [facility] Periop 1st floor [address] [place] [address] Social History Tobacco Use Types Packs/Day Years [...] on filedocumented in this encounter Care Teams Forestry And Wildlife Manager Relationship Specialty Start Date End Date Yoko He MD [facility] [place] [address] PCP - General Internal Medicine 04/23/19 documented as of this encounter Additional Source Comments The information contained in this document represents components of the legal health record. It is not the complete legal health record.[facility]
--- OUTSIDE RECORDS SUMMARY | 2025-06-04 07:46 | XMS_ITS | Clinical Summary ---
Author Organization [facility] Address [address] [place] [address] Phone Care Team Providers Care Warehouse Attendant Name Role Phone Yoko He MD Primary Care Provider [phone] Allergies Active Allergy Reactions Criticality Noted Date Comments Aurora Containing Products GI Upset Medium 04/23/2019 Abdominal [...] PM EDT Hospital Encounter [facility] [place] [address] Fredis Nuñez MD, ZAIDA Discharge Disposition: Home or Self Care 04/19/2025 Telephone [facility] Pain Management [address] [address] , Caio Rico MD 04/16/2025 Telephone [facility] Pain Management [address] [address] , Caio Rico MD 04/16/2025 Orders Only [facility] Pain Management [address] [place] [address] , Caio Rico MD 04/16/2025 Telephone [facility] Pain Management [address] [place] [address] Millicent Gutierrez 04/10/2025 11:28 AM EDT Anesthesia Event [address] [address] Rashid Ashby MD [place], Nickisha Ann-Marie, NP 04/10/2025 10:32 AM EDT - 04/10/2025 12:16 PM EDT Surgery [address] [address] Fredis Nuñez MD, ZAIDA REPLACEMENT NEUROSTIMULATOR GENERATOR BATTERY 04/10/2025 8:06 AM EDT - 04/10/2025 2:25 PM EDT Hospital Encounter [address] [address] Fredis Nuñez MD, ZAIDA Discharge Disposition: Home or Self Care 04/10/2025 Procedure Pass [address] [address] 04/08/2025 2:10 PM EDT Pre-Admission Testing [address] [address] Fredis Nuñze MD, ZAIDA 04/07/2025 Telephone [facility] Pain Management [address] [place] [address] Fredis Nuñez MD, ZAIDA 04/06/2025 10:03 AM EDT - 04/06/2025 11:59 PM EDT Hospital Encounter [facility] [address] [place] [address] Sabina Braxton MD Discharge Disposition: Home or Self Care 04/06/2025 Orders Only [facility] [address] [place] [address] Caio Parnell MD 04/06/2025 Orders Only [facility] [address] [place] [address] Fredis Nuñez MD, ZAIDA Ilioinguinal neuralgia of [...] this topic Medical Devices Implanted Type Area Coater Brake Linings Device Identifier Shelf Expiration Date Model / Serial / Lot Kit Lead Neurostimulator 60cm [id number] Restore - [id number] Implanted:Qty: 1 on 11/22/2017 by [facility] N[facility]A: Back [employer] 10/19/2020 [id number] / / [id number] 11 Kit Lead Neurostimulator 60cm [id number] Restore - [id number] Implanted:Qty: 1 on 11/22/2017 by Fredis Nuñez MD, ZAIDA at [facility] SMDA N/A: Back [employer] 10/19/2020 [id number] / / [id number] Mesh Surgical 15cm 8 Hernia Prolene Polypropylene Nonabsorbable Repair Bx/6ea - [id number] Implanted:Qty: 1 on 04/30/2019 by Sal Colorado MD, MS at [facility] STANDARD N/A: Abdomen JNJ ETHICON / DIVISION OF J 03/30/2023 [id number] / / [id number] Left Eyeball Buckle Lt. Opthal. Lense Generator Neurostimulator Intellis Battery - [id number] Implanted:Qty: 1 on 11/22/2017 by Fredis Nuñez MD, ZAIDA at [facility] Left: Spine Lumbar [employer] 10/28/2018 [id number] / [id number] 3H / Implantable Pulse Generator Closed Loop Ins Ngrc-Ecaps Mri - [id number] Implanted:Qty: 1 on 04/10/2025 by Fredis Nuñez MD, ZAIDA at [facility] N/A: Spine Lumbar [employer] 01/26/2026 [id number] / [id number] 1H / Procedures Procedure Name Priority Date/Time Associated Diagnosis Comments [place] INSJ/RPLCMT SPINAL NPG/RCVR POCKET CRTJ&CONNJ 04/10/2025 11:10 AM EDT Ilioinguinal neuralgia of left side Special Needs SCT: 60m Food Beverage Attendant: [email or web address] for new generator [employer] If not, I can do may from Last [address] [place] [address] [address] MEDICARE PPO BLUE REPLACEMENT [employer] Care Teams Warehouse Attendant Relationship Specialty Start Date End Date Yoko He MD [facility] [address] [place] [address] PCP - General Internal Medicine 04/23/19 Additional Source Comments The information contained in this document represents components of the legal health record. It is not the complete legal health record.[facility]
--- OUTSIDE RECORDS SUMMARY | 2025-06-04 07:46 | XMS_ITS | Encounter Summary ---
Author Organization [facility] Address [address] [place] [address] Phone Care Team Providers Care Metal Fabricator Apprentice Name Role Phone Unknown, Unknown Primary Care Provider Jenniffer Mcgarry DO Primary Care Provider Yoko He MD Primary Care Provider [phone] Yoko He MD Primary Care Provider [phone] Encounter Details Date Type Department Care Team (Late st Contact Info) Description 11/22/2017 Procedure Pass [facility] Periop 1st floor [address] [place], [place] [id number] Social History Tobacco Use Types Packs/Day Years [...] on filedocumented in this encounter Care Teams Metal Fabricator Apprentice Relationship Specialty Start Date End Date Unknown, Unknown, PCP - General 11/22/17 12/19/17 Jenniffer Najera DO [address] [place] [address] [email or web address] PCP - General Family Medicine 12/20/17 Yoko He MD [facility] [place] [address] PCP - General Internal Medicine 03/18/19 03/18/19 Yoko He MD [address] [facility] [place] [address] PCP - General Internal Medicine 04/23/19 documented as of this encounter Additional Source Comments The information contained in this document represents components of the legal health record. It is not the complete legal health record.[facility]
--- OUTSIDE RECORDS SUMMARY | 2025-06-04 07:46 | XMS_ITS | Encounter Summary ---
Author Organization [facility] Address [address] [place] [address] [address] [place] [address] Phone Care Team Providers Care Medical Dosimetrist Name Role Phone Yoko He MD Primary Care Provider [phone] Encounter Details Date Type Department Care Team (Late st Contact Info) Description 04/30/2019 Procedure Pass [facility] Periop 1st floor [address] [place] [address] Social History Tobacco Use Types Packs/Day Years [...] on filedocumented in this encounter Care Teams Medical Dosimetrist Relationship Specialty Start Date End Date Yoko He MD [address] [facility] [address] [place] [address] PCP - General Internal Medicine 04/23/19 documented as of this encounter Additional Source Comments The information contained in this document represents components of the legal health record. It is not the complete legal health record.[facility]
--- NOTE | 2025-06-04 07:56 | A.OFFVIS_ITS ---
Vital Signs 06/04/25 08:07 Height 5 ft 9 in Weight 158 lb 1.143 oz BMI 23.3 BP 120/80 Blood Pressure Location Rt brachial Position Sitting Pulse 76 Pulse Source Pulse Oximeter Pulse Oximetry (%) 99 Oxygen Delivery Method Room Air Intake Visit Reasons: knee pain Intake Note: Patient presents for knee pain follow up. Allergies corn Allergy (Intermediate, Verified 06/04/25 08:01) Swelling heparin (HEPARIN) Allergy (Intermediate, Verified 06/04/25 08:01) ILL PLATELETS UNKNOWN heparin (porcine) Allergy (Intermediate, Verified 06/04/25 08:01) unkn hydrocodone (Vicodin) Allergy (Intermediate, Verified 06/04/25 08:01) Hallucinations tizanidine (From ZANAFLEX) Allergy (Intermediate, Verified 06/04/25 08:01) WELTS APPEAR ALL OVER BODY tramadol (Ultram) Allergy (Intermediate, Verified 06/04/25 08:01) welts wheat Allergy (Intermediate, Verified 06/04/25 08:01) Swelling hydromorphone (Dilaudid) Allergy (Mild, Verified 06/04/25 08:01) cold sweats levothyroxine sodium Allergy (Mild, Verified 06/04/25 08:01) Nausea meperidine (From DEMEROL) Allergy (Mild, Verified 06/04/25 08:01) n/a soy Allergy (Mild, Verified 06/04/25 08:01) Unknown acetaminophen (From PERCOCET) Adverse Reaction (Intermediate, Verified 06/04/25 08:01) UPSET/AGITATED oxycodone (From PERCOCET) Adverse Reaction (Intermediate, Verified 06/04/25 08:01) UPSET/AGITATED vinegar Allergy (Intermediate, Uncoded 03/23/25 09:13) Swelling Medication List - Last Reconciled 06/04/25 by Suzanne Wallace MD Tirosint (levothyroxine) 112 mcg PO DAILY NS HPI Comments Details: Patient is a 50-year-old female with GERD, history of 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 Complained of diffuse joint pain especially in her back where she has had multiple lower back surgeries as well as knee pain. - no evidence of autoimmune connective tissue disease at that time and follow up was PRN Today - Complaining of left knee pain, feels like glass behind the knee cap - Right knee sometimes involved Rheumatologic History: Initial history: This is a 48-year-old female who presents for evaluation of positive AMERICA. 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 She also has history of vitiligo. She is unaware of any family history of autoimmune rheumatic disease. Patient states that she gets diffuse joint pain especially in her back where she had multiple lower back surgeries, she also gets intermittent aching in her knees as well as cracking. She also is having rashes that are intermittently itchy on both legs. Denies any other skin rashes. Has mild oral dryness. She denies any history of DVT/PE. Patient had 4 pregnancies and 1 . She denies any swollen joints. Denies mouth ulcers. Denies any blood or froth in urine Current Rheumatology Medication(s): [facility] Medical History (Updated 06/02/25 @ 08:49 by Jenniffer Maurice CNP) Ophthalmic migraine Carpal tunnel syndrome Chronic low back pain Dizziness Seizure disorder Hypothyroidism Depression with anxiety Vitiligo Abdominal wall hernia Knee pain, left Annual physical exam Head injury Fatigue Acquired hypothyroidism Allergies Colon polyps Retinal detachment Nephrolithiasis Surgical History H/O bone graft H/O: hysterectomy History of lumbar fusion S/P lumbar laminectomy History of kidney stones History of back surgery Hx of removal of neck cyst History of tonsillectomy History of thyroidectomy History of section Family History Father Cancer Mother No problems noted. Brother Substance use disorder Son No problems noted. Daughter No problems noted. Daughter No problems noted. Daughter No problems noted. Social History Housing: House Are you a primary hiv/aids care nurse to a significant other at home: No Do you presently have visiting nurse or other home services: No Alcohol intake: current Alcohol intake frequency: holidays/special occasions only Patient Tobacco Use Status: Current everyday Tobacco user Cigarette Packs Per Day: 1 Cigarettes Per Day: 20.0 e-Cigarette/Vaping Use: Never Used Substance Use Type: Marijuana service: No Current occupational status: employed Cognitive needs: No Hearing needs: No Vision needs: Yes Review of Systems Const Details: Review of Systems Constitutional: Denies fever, chills, weight loss ENT: Denies vision changes, eye pain or eye redness, dental caries, dry mouth GI: Denies nausea, vomiting, diarrhea, abdominal pain, change in BM Pulm: Denies SOB, WOODSON, hemoptysis, wheezing Cards: Denies chest pain, palpitations Skin: Denies Raynaud's, photosensitivity, WOOD PILE DRIVER OPERATOR: Denies headaches, weakness, paresthesias, recurrent falls MSK: as per HPI All other systems reviewed and are unremarkable except noted above Physical Exam Exam Exam: Vital signs reviewed Physical Examination CONSTITUITIONAL Patient alert and cooperative. Well appearing and in no apparent painful distress MSK Hands * Right Hand: Able to make a fist. No swelling or tenderness to palpation of the MCPs, PIPs or DIPs. No deformities noted. * Left Hand: Able to make a fist. No swelling or tenderness to palpation of the MCPs, PIPs or DIPs. No deformities noted. Wrists * Right Wrist: Full ROM to flexion and extension. No swelling or TTP * Left Wrist: Full ROM to flexion and extension. No swelling or TTP Elbows * Right Elbow: Full ROM. No swelling or TTP. No TTP of the medial epicondyle. No TTP of the lateral epicondyle * Left Elbow: Full ROM. No swelling or TTP. No TTP of the medial epicondyle. No TTP of the lateral epicondyle Shoulders * Right shoulder: Full ROM. No swelling noted. No TTP of the AC joint. No TTP of the subacromial bursa. No TTP of the posterior shoulder * Left shoulder: Full ROM. No swelling noted. No TTP of the AC joint. No TTP of the subacromial bursa. No TTP of the posterior shoulder Knees * Right knee: Full ROM. No swelling noted. No TTP of the knee joint line. No TTP of pes anserine bursa * Left knee: Full ROM. No swelling noted. Mild TTP of the knee joint line. No TTP of pes anserine bursa. * Crepitations felt bilaterally Ankles * Right ankle: Good ankle dorsiflexion and plantar flexion. No swelling. No TTP of the ankle joint * Left ankle: Good ankle dorsiflexion and plantar flexion. No swelling. No TTP of the ankle joint Feet * Right foot: Negative squeeze test * Left foot: Negative squeeze test Tender points? * No tenderness to palpation of the bilateral trapezius, supraspinatus, anterior costochondral junctions, bilateral suboccipital muscle insertions SKIN Vitiligo Vital Signs: Last Vital Signs Pulse 76 06/04/25 08:07 BP 120/80 06/04/25 08:07 Pulse Ox 99 06/04/25 08:07 Oxygen Delivery Method Room Air 06/04/25 08:07 BMI result Body Mass Index 23.3 Results Reviewed Results Reviewed: Laboratory Tests 12/17/23 03/23/25 11:44 11:32 WBC 5.3 RBC 4.57 Hgb 14.3 Hct 43.6 Plt Count 206 D ESR 23 H Sodium 142 Potassium 3.8 D Chloride 113 H Carbon Dioxide 21 L BUN 13 Creatinine 0.62 AST 18 ALT 19 C-Reactive Protein 0.80 H Laboratory Tests 12/13/20 03/16/23 06:50 14:56 Rheumatoid Factor < 13.0 AMERICA Screen POSITIVE A POSITIVE A AMERICA Titer 1:40 H 1:80 H XR Left Knee 06/2021 FINDINGS: No acute visible fracture or dislocation. Mild narrowing of the medial femorotibial compartment. Spurring of the tibial spines. Joint spaces and alignment are otherwise maintained. No large knee joint effusion. Soft tissues are unremarkable. IMPRESSION: 1. No acute visible fracture or dislocation. 2. Mild multicompartment degenerative changes. Assessment & Plan Assessment & Plan (1) Polyarticular osteoarthritis: Code(s): M15.9 - Polyosteoarthritis, unspecified Plan: #Polyarticular OA Patient is a 50-year-old female with polyarticular osteoarthritis here today for follow up. Main complaint today is knee pain especially her neck knee. We do see x-rays from 2020 showing mild early osteoarthritic changes. Discussed the pathophysiology of osteoarthritis with the patient including treatment options such as topical diclofenac, steroid injections and gel injections (pamphlet given). Today her knee pain is minimal and so I recommended topical diclofenac. If the pain returns severe she can contact the office a trial of steroid injection Plan - topical diclofenac 1% q.i.d. to left knee - XR Bilateral Knees - RTC 6 months (2) Positive AMERICA (antinuclear antibody): Code(s): R76.8 - Other specified abnormal immunological findings in serum Plan: #Positive AMERICA The presence of antinuclear antibodies (AMERICA) is mainly associated with connective tissue diseases (CTD). ?However, their presence is found in healthy people especially in women and patients >65. ?In healthy individuals, the frequency of AMERICA has been shown to be 31.7% of individuals at 1:40 serum dilution, 13.3% at 1:80, 5.0% at 1:160, and 3.3% at 1:320 (2). Some drugs and xenobiotics are also important for the development of AMERICA (hydralazine, hydrochlorothiazide, minocycline, terbinafine, ciprofloxacin, furosemide, omeprazole). Moreover, the deficiency of vitamin D in the body of patients correlates with occurrence of these antibodies (1). At this time there is low suspicion for a connective tissue disease. ? 1. Jeff?bereket Baez, Kelsey Dixon, Britton Mckinley. Antinuclear antibodies in healthy people and non-rheumatic diseases - diagnostic and clinical implications. Reumatologia. 2018;56(4):243-248. doi: 10.5114/reum.2018.19495. Epub 2017May 31. PMID: 59943333; PMCID: PSD3277795. 2. Llanos EM, Breanna TE, Rivera JS, Modesto B, Brett R, Gautam MJ, Brennan T, Armen JA, Norma JR, Martha RG, Peter RN, Farzana ALFARO, Bernard NF, Michell RJ, Hector Y, Mary A, Irineo MR, Rai TODD. Range of antinuclear antibodies in healthy individuals. Arthritis Rheum. 1996;40(9):1601-11. doi: 10.1002/art.9065521009. PMID: 5185561. Plan I spent 20 minutes reviewing the record and labs, taking a history, examining the patient, discussing the treatment plan, ordering diagnostic work up and documenting in the medical record Orders: Orders XR knee LT 3V Today M17.0 - Bilateral primary osteoarthritis of knee XR knee RT 3V Today M17.0 - Bilateral primary osteoarthritis of knee Medications: New diclofenac sodium 1% (Arthritis Pain (diclofenac)) apply to left knee 4 grams topical QID 150 grams 4RF M17.0 - Bilateral primary osteoarthritis of knee Coding Level of Care Code Est Pt Level 3 (90191) Complex EM visit Add On G2211 Diagnoses Polyarticular osteoarthritis M15.9 Positive AMERICA (antinuclear antibody) R76.8
[2025-06-04 08:07] VITALS: BP 120/80; PULSE 76; O2SAT 99; BMI 23.3
== END 2025-06-04 08:39 | disposition home or self-care (01) ==
LOC: HO.RHES 07:43
PROVIDERS: PCP Internal Medicine; Visit Provider Student in an Organized Health Care Education/Training Program
DX: M15.9 Polyosteoarthritis, unspecified (principal); R76.8 Other specified abnormal immunological findings in serum
CPT/HCPCS: 99213; G2211

== ENCOUNTER → 2025-06-04 07:42 | Outpatient (BNVA) | payer MEDICARE, MEDICAID, SELFPAY | PROVIDERS: PCP Internal Medicine; Visit Provider Student in an Organized Health Care Education/Training Program | DX: M15.9 Polyosteoarthritis, unspecified (principal); R76.8 Other specified abnormal immunological findings in serum | CPT/HCPCS: 99212 ==

== ENCOUNTER 2025-07-08 13:51 | Outpatient (AMB) | payer MEDICARE, MEDICAID, SELFPAY ==
[2025-07-08 14:11] VITALS: BP 120/70; PULSE 76; RESP 17; TEMP 36.7; O2SAT 98; BMI 23.2
--- NOTE | 2025-07-08 14:11 | A.OFFPC_ITS ---
Vital Signs 07/08/25 14:11 Height 5 ft 9 in Weight 157 lb BMI 23.2 BP 120/70 Blood Pressure Location Lt brachial Position Sitting Respiration 17 Pulse 76 Pulse Source Pulse Oximeter Temp 98.0 F Temp Source Oral Pulse Oximetry (%) 98 Oxygen Delivery Method Room Air Intake Visit Reasons: ER follow up Intake Note: Pt is here today for a ER follow up visit. Allergies corn Allergy (Intermediate, Verified 07/08/25 14:15) Swelling heparin (HEPARIN) Allergy (Intermediate, Verified 07/08/25 14:15) ILL PLATELETS UNKNOWN heparin (porcine) Allergy (Intermediate, Verified 07/08/25 14:15) unkn hydrocodone (Vicodin) Allergy (Intermediate, Verified 07/08/25 14:15) Hallucinations tizanidine (From ZANAFLEX) Allergy (Intermediate, Verified 07/08/25 14:15) WELTS APPEAR ALL OVER BODY tramadol (Ultram) Allergy (Intermediate, Verified 07/08/25 14:15) welts wheat Allergy (Intermediate, Verified 07/08/25 14:15) Swelling hydromorphone (Dilaudid) Allergy (Mild, Verified 07/08/25 14:15) cold sweats levothyroxine sodium Allergy (Mild, Verified 07/08/25 14:15) Nausea meperidine (From DEMEROL) Allergy (Mild, Verified 07/08/25 14:15) n/a soy Allergy (Mild, Verified 07/08/25 14:15) Unknown acetaminophen (From PERCOCET) Adverse Reaction (Intermediate, Verified 07/08/25 14:15) UPSET/AGITATED oxycodone (From PERCOCET) Adverse Reaction (Intermediate, Verified 07/08/25 14:15) UPSET/AGITATED vinegar Allergy (Intermediate, Uncoded 07/08/25 14:15) Swelling Medication List - Last Reconciled 07/08/25 by Yoko He MD diclofenac sodium 1% (Arthritis Pain (diclofenac)) 4 grams topical QID lactulose 20 grams (30 mL) PO TID Tirosint (levothyroxine) 112 mcg PO DAILY NS Tobacco use date assessed: 07/08/25 Dental Screening Dental Screen Date: 12/23/24 HPI ER follow up HPI Details Patient presents for a follow-up of ER visit to [facility] for the complaint of abdominal bulging pain and chronic constipation is getting worse. She had a CT of the abdomen pelvis which was negative for hernia. Patient has been taking MiraLax 3 times a day and having only small amount of hard stool. She has been eating regularly and increasing fluid intake. Patient denies nausea vomiting fever chills hematochezia melena. [facility] Medical History (Updated 07/08/25 @ 15:38 by Yoko He MD) Ophthalmic migraine Carpal tunnel syndrome Chronic low back pain Dizziness Seizure disorder Hypothyroidism Depression with anxiety Vitiligo Abdominal wall hernia Knee pain, left Annual physical exam Head injury Fatigue Acquired hypothyroidism Allergies Colon polyps Retinal detachment Nephrolithiasis Surgical History H/O bone graft H/O: hysterectomy History of lumbar fusion S/P lumbar laminectomy History of kidney stones History of back surgery Hx of removal of neck cyst History of tonsillectomy History of thyroidectomy History of section Family History Father Cancer Mother No problems noted. Brother Substance use disorder Son No problems noted. Daughter No problems noted. Daughter No problems noted. Daughter No problems noted. Social History Housing: House Are you a primary hemodialysis patient care specialist to a significant other at home: No Do you presently have visiting nurse or other home services: No Alcohol intake: current Alcohol intake frequency: holidays/special occasions only Patient Tobacco Use Status: Current everyday Tobacco user Cigarette Packs Per Day: 1 Cigarettes Per Day: 20.0 e-Cigarette/Vaping Use: Never Used Substance Use Type: Marijuana service: No Current occupational status: employed Cognitive needs: No Hearing needs: No Vision needs: Yes Questionnaire Thrive Questionnaire Date Thrive assessed: 10/30/24 I am a: Patient What is your living situation today?: I choose not to answer this question Within the past 12 months, did the food you bought not last and you didn't have the money to get more?: I choose not to answer this question Within the past 12 months, did you worry whether your food would run out before you got money to buy more?: I choose not to answer this question Do you have trouble paying for medicines?: I choose not to answer this question Do you have trouble getting transportation to medical appointments?: I choose not to answer this question Do you have trouble paying your heating and electricity bill?: I choose not to answer this question Do you have trouble taking care of your child, family member or friend?: I choose not to answer this question Do you have trouble with day-to-day activities such as bathing, preparing meals, shopping, managing finances, etc.?: I choose not to answer this question Are you currently unemployed and looking for a job?: I choose not to answer this question Are you interested in more education?: I choose not to answer this question Please select the resources that you would like help with: None Currently or been in a relationship where the following occur: I choose not to answer THRIVE Score: 0 JANINE-7 AMB Questionnaire JANINE-7 Date JANINE - 7 assessed: 12/23/24 Source: Developed by Drs. Fredis Ballesteros, Luann Loredo, Xavier Marc and colleagues, with an educational luis from [employer]. Review of Systems Const All systems reviewed & are unremarkable except as noted in HPI and below ENT Reports no additional complaints Card Reports no additional complaints Resp Reports no additional complaints GI Reports no additional complaints Reports no additional complaints Physical exam (Primary Care) Vital Signs: Last Vital Signs Temp 98.0 F 07/08/25 14:11 Pulse 76 07/08/25 14:11 Resp 17 07/08/25 14:11 BP 120/70 07/08/25 14:11 Pulse Ox 98 07/08/25 14:11 Oxygen Delivery Method Room Air 07/08/25 14:11 BMI result Body Mass Index 23.2 Tobacco/Smoking Status: Tobacco use Status Tobacco use date assessed 07/08/25 07/08/25 14:16 Patient Tobacco Use Status Current everyday Tobacco 07/08/25 14:12 e-Cigarette/Vaping Use Never Used 07/08/25 14:12 Thrive Assessment: Date of Thrive Assessment Date Thrive assessed 10/30/24 07/08/25 14:12 Currently or been in a relationship where the following occur: I choose not to answer Const General: no acute distress HENMT Head: Yes normal to inspection Neck Neck: Yes supple Resp Effort & Inspection: normal respiratory effort Auscultation: clear to auscultation bilaterally Cardio Rhythm: regular rhythm Heart sounds: S1 normal heart sound present and S2 normal heart sound present GI Inspection: Yes normal to inspection Palpation (GI): Soft to palpation, Tenderness to palpation present (GI), no guarding and No Rebound tenderness present Percussion: Yes normal to percussion Auscultation: normal bowel sounds Coding Level of Care Code Est Pt Level 3 (92816) Diagnoses Abdominal wall hernia K43.9 Assessment & Plan Assessment & Plan (1) Abdominal wall hernia: Comment: s/p repair and mesh at [facility], history of multiple abdominal surgeries, chronic abdominal pain, abdominal /pelvic CT a Nguyen 07/05/2025 no abdominal hernia or acute findings, Code(s): K43.9 - Ventral hernia without obstruction or gangrene Category: Medical Plan: For chronic abdominal pain and constipation patient was advised to start lactulose 30 cc 3 times a day and continue MiraLax until diarrhea and then decrease lactulose to once or twice a day. She has an appointment with GI to discuss repeat colonoscopy for history of colon polyps. Patient will be referred to general surgeon for evaluation of chronic abdominal pain since abdo brijesh wall hernia repair with a mesh and abdominal adhesions removal Orders: Referrals General Surgery Referral K43.9 - Ventral hernia without obstruction or gangrene, K66.0 - Peritoneal adhesions (postprocedural) (postinfection) Medications: New lactulose 20 grams (30 mL) PO TID 3,000 mL 0RF
== END 2025-07-08 15:39 | disposition home or self-care (01) ==
LOC: HO.HMCC 13:52
PROVIDERS: PCP Internal Medicine; Visit Provider Internal Medicine
DX: K43.9 Ventral hernia without obstruction or gangrene (principal)

== ENCOUNTER → 2025-07-08 13:51 | Outpatient (BNVA) | payer MEDICARE, MEDICAID, SELFPAY | PROVIDERS: PCP Internal Medicine; Visit Provider Internal Medicine | DX: K43.9 Ventral hernia without obstruction or gangrene (principal); K59.09 Other constipation; R10.9 Unspecified abdominal pain; K66.0 Peritoneal adhesions (postprocedural) (postinfection) | CPT/HCPCS: 99212 ==

== ENCOUNTER 2025-09-22 15:36 | Outpatient (AMB) | payer MEDICARE, MEDICAID, SELFPAY ==
[2025-09-22 15:43] VITALS: BP 100/70; PULSE 74; O2SAT 99; BMI 22.6
--- NOTE | 2025-09-22 15:43 | MHC.OFFVIS ---
Vital Signs 09/22/25 15:43 Height 5 ft 9 in Weight 153 lb 0.013 oz BMI 22.6 BP 100/70 Blood Pressure Location Lt brachial Position Sitting Pulse 74 Pulse Source Pulse Oximeter Pulse Oximetry (%) 99 Oxygen Delivery Method Room Air Intake Visit Reasons: Hypothyroidism Intake Note: Patient present today for Hypothyroidism office visit. Put[employer] Caul[employer] Supervisor Required: No Accompanied by: Self / Same As Patient Allergies corn Allergy (Intermediate, Verified 09/22/25 15:48) Swelling heparin (HEPARIN) Allergy (Intermediate, Verified 09/22/25 15:48) ILL PLATELETS UNKNOWN heparin (porcine) Allergy (Intermediate, Verified 09/22/25 15:48) unkn hydrocodone (Vicodin) Allergy (Intermediate, Verified 09/22/25 15:48) Hallucinations tizanidine (From ZANAFLEX) Allergy (Intermediate, Verified 09/22/25 15:48) WELTS APPEAR ALL OVER BODY tramadol (Ultram) Allergy (Intermediate, Verified 09/22/25 15:48) welts wheat Allergy (Intermediate, Verified 09/22/25 15:48) Swelling hydromorphone (Dilaudid) Allergy (Mild, Verified 09/22/25 15:48) cold sweats levothyroxine sodium Allergy (Mild, Verified 09/22/25 15:48) Nausea meperidine (From DEMEROL) Allergy (Mild, Verified 09/22/25 15:48) n/a soy Allergy (Mild, Verified 09/22/25 15:48) Unknown acetaminophen (From PERCOCET) Adverse Reaction (Intermediate, Verified 09/22/25 15:48) UPSET/AGITATED oxycodone (From PERCOCET) Adverse Reaction (Intermediate, Verified 09/22/25 15:48) UPSET/AGITATED vinegar Allergy (Intermediate, Uncoded 09/22/25 15:48) Swelling Medication List - Last Reconciled 09/22/25 by Fredis Wolf MD diclofenac sodium 1% (Arthritis Pain (diclofenac)) 4 grams topical QID lactulose 20 grams (30 mL) PO TID Tirosint (levothyroxine) 112 mcg PO DAILY NS HPI Comments Details: History of Present Illness The patient is a 50 year old female presenting for endocrine follow-up. She has a history of papillary thyroid cancer, for which she underwent a total thyroidectomy in [place] in 2009. One parathyroid gland was also removed during the surgery. She did not receive radioactive iodine treatment post-operatively. The pathology report from the surgery is not available. Her last visit with an ski patrol officer was in 2020. Since her last visit, she has developed vitiligo and has received conflicting diagnoses of rheumatoid arthritis and osteoarthritis. Her past surgical history is significant for seven back surgeries, hernia mesh repair, a partial hysterectomy, and placement of a spinal cord stimulator. Last year, the patient was bedridden with severe abdominal pain. Following a recent battery replacement for her spinal cord stimulator in March or March, she experienced a flare of her autoimmune symptoms and what she describes as stomach paralysis, where she was unable to tolerate foods like blueberries or oatmeal. Both gastroenterology and allergy specialists have suggested her symptoms may be endocrine-related. The patient reports feeling tired and as though she had the flu for weeks, though this has improved with more frequent CBD use. She reports being constantly cold, having dry skin on her feet and calves, hair loss from her head and eyebrows, and peeling nails. She also experiences episodes of feeling hot with a prickly sensation all over her body. Her weight has been stable. She reports a history of balance problems and is unable to stand still with her feet together for long. She suspects she may have celiac disease due to allergies to wheat, barley, and rye, and a self-conducted case study. Her primary care provider has noted that her cholesterol is high. Medication History - Lactulose: The patient reports this medication did not help. - Linzess: Prescribed, but patient reports forgetting to take it. Medications - Levothyroxine (Tyrosine) 112 mcg: Prescribed to be taken 6 days a week for post-surgical hypothyroidism. However, patient reports taking it 7 days a week - CBD: Patient has been taking this more often for inflammation, which has helped with bowel regularity. Exercise Diet History The patient reports allergies to multiple foods, including blueberries, oatmeal, wheat, barley, and rye, which makes it difficult to eat enough to gain weight. She has self-diagnosed a potential for celiac disease. She notes that certain foods, such as those containing vinegar, can cause a pins and needles sensation in her mouth. Results - Labs: Blood tests from March in [place] indicated hyperthyroidism. Tirosint dose was not changed - Pathology: History of papillary thyroid cancer confirmed on pathology from 2009; however, the report is unavailable for review. [facility] Medical History (Updated 07/08/25 @ 15:38 by Yoko He MD) Ophthalmic migraine Carpal tunnel syndrome Chronic low back pain Dizziness Seizure disorder Hypothyroidism Depression with anxiety Vitiligo Abdominal wall hernia Knee pain, left Annual physical exam Head injury Fatigue Acquired hypothyroidism Allergies Colon polyps Retinal detachment Nephrolithiasis Surgical History H/O bone graft H/O: hysterectomy History of lumbar fusion S/P lumbar laminectomy History of kidney stones History of back surgery Hx of removal of neck cyst History of tonsillectomy History of thyroidectomy History of section Family History Father Cancer Mother No problems noted. Brother Substance use disorder Son No problems noted. Daughter No problems noted. Daughter No problems noted. Daughter No problems noted. Social History Housing: House Are you a primary vehicle care specialist to a significant other at home: No Do you presently have visiting nurse or other home services: No Alcohol intake: current Alcohol intake frequency: holidays/special occasions only Patient Tobacco Use Status: Current everyday Tobacco user Cigarette Packs Per Day: 1 Cigarettes Per Day: 20.0 e-Cigarette/Vaping Use: Never Used Substance Use Type: Marijuana service: No Current occupational status: employed Cognitive needs: No Hearing needs: No Vision needs: Yes Review of Systems Narrative Review of Systems - Constitutional: Reports fatigue, feeling persistently cold, and episodes of feeling hot with paresthesias. Denies significant weight change. - HEENT: Reports hair loss, including from her eyebrows. Reports oral paresthesias with certain foods. - Skin: Reports dry skin, particularly on her feet and calves, and peeling nails. - Gastrointestinal: Reports a history of severe abdominal pain, gastroparesis-like symptoms, and constipation which has improved. Denies change in appetite. - Neurological: Reports a chronic balance problem and dizziness only on standing too quickly. - Endocrine: Reports being post-partial hysterectomy but is unsure of her menopausal status. Physical Exam Exam Exam: Physical Exam - Neck: Thyroid bed palpated. - Neurologic: No tremor appreciated on examination of outstretched hands. Absence of Cushingoid features. Absence of acromegalic features. Neck exam reveals nl size thyroid about 15 gms. No thyroid nodules palpable. Heart S1 S2, Reg R/R. No M/R G. Skin exam reveals absence of vitiligo or acanthosis nigricans. Visual exam of foot performed. No ulcerations or open lesions. No inter digit maceration or fissuring. No onychomycosis, no callouses. Sensation intact to monofilament exam. Vibratory sensation is normal with 128 Hz tuning fork. Vital Signs: Last Vital Signs Pulse 74 09/22/25 15:43 BP 100/70 09/22/25 15:43 Pulse Ox 99 09/22/25 15:43 Oxygen Delivery Method Room Air 09/22/25 15:43 BMI result Body Mass Index 22.6 Const Other: Healed scar status post thyroidectomy. There was the absence of cervical adenopathy. Assessment & Plan Assessment & Plan (1) Acquired hypothyroidism: Comment: used to see endo Dr. Alejandra , needs to take brand name Tirosint Code(s): E03.9 - Hypothyroidism, unspecified Category: Medical Plan: 50-year-old white female with a history of papillary thyroid cancer by history status post thyroidectomy with post-surgical hypothyroidism. She is currently onTirosint 112 mcg q.d.. She appears to be clinically euthyroid. Plan is to try to get the office visit notes from Dr. Raines's office as well as any previous notes surrounding the pathology of the original cancer. We will check TSH, free T4 and thyroglobulin and adjust the Tirosint accordingly. We will have patient follow up with Dr. Farah in the next several months who can better perform or order a neck ultrasound in conjunction with the thyroglobulin level ordered to determine any next steps if necessary for surveillance Plan Assessment and Plan 1. History of Papillary Thyroid Cancer, S/p Total Thyroidectomy The patient is status post-total thyroidectomy in 2009 without subsequent radioactive iodine. The cancer was likely low-risk, and she is probably cured. However, continued surveillance is warranted. Monitoring involves checking thyroglobulin levels, which serve as a tumor marker, and performing a neck ultrasound to rule out local recurrence. We will check a thyroglobulin level with her next labs. A referral will be placed for her to see my colleague, Dr. Farah, in approximately 2-2.5 months for a neck ultrasound, as she has expertise in this area. We will also attempt to obtain her prior pathology report and medical records from previous providers after she signs a release of information. 2. Post-Surgical Hypothyroidism and Iatrogenic Hyperthyroidism The patient is on levothyroxine 112 mcg, prescribed for 6 days per week. She admits to some non-adherence, occasionally taking it 7 days per week. Her labs in March revealed hyperthyroidism, which was not addressed at the time by her other providers. This could be contributing to her various symptoms, including gastrointestinal issues. The plan is to have her take the levothyroxine 112 mcg strictly 6 days a week for the next 4-5 weeks. After this period of adherence, we will recheck her TSH and Free T4 to assess her true thyroid status on this regimen before making any dose adjustments. 3. Multiple Autoimmune Conditions and Systemic Symptoms The patient has a history of vitiligo and possible rheumatoid arthritis, along with non-specific symptoms including fatigue, GI distress, and paresthesias. Given her constellation of autoimmune issues, there is concern for other endocrinopathies such as Riley's disease (adrenal insufficiency). We will screen for this by checking an 8 AM cortisol level. If the result is low, an ACTH stimulation test may be indicated. The patient is also encouraged to follow up with her electric motor control assembler for further evaluation of her joint-related complaints. The patient had an opportunity to ask questions regarding treatment plan. The patient expressed understanding and agreement with the above treatment plan. Patient was informed and verbally consented to the use of an ambient scribe for clinic note documentation during this visit. Discussion Notes I discussed with the patient the management plan for her history of thyroid cancer, which includes long-term monitoring with thyroglobulin blood tests and a neck ultrasound to ensure there is no recurrence. I explained that her recent hyperthyroid lab results are likely due to taking her levothyroxine more frequently than prescribed and that adhering to the 4-qev-s-week schedule is crucial for getting an accurate assessment of her thyroid levels. We will delay blood work for 4-5 weeks to allow her levels to stabilize. I also explained that due to her history of vitiligo and other autoimmune symptoms, I will be screening her for Riley's disease by checking a morning cortisol level. I detailed that if this level is low, a stimulation test may be necessary to confirm the diagnosis. I arranged for her to follow up with my colleague, Dr. Farah, in about two and a half months for the ultrasound, and asked the patient to sign a release of information to obtain her past medical records. The patient was provided with several websites for reliable information on endocrine disorders. Patient Instructions - Take your thyroid medication, levothyroxine 112 mcg, exactly six days per week, not seven. - In about 4 to 5 weeks, you will need to get blood work done. Please go to the lab around 8:00 AM for this test. You do not need to fast (stop eating). - Please sign a release of information form at the lead front end developer so that we can request your old medical records. - We will be testing you for a condition called Riley's disease. You can look this up for more information. - You will have a follow-up appointment with Dr. Farah in about 2-2.5 months for a neck ultrasound. - You should also make a follow-up appointment to see your electric motor control assembler. - For reliable information, you can visit the following websites: [email or web address], [email or web address], and [email or web address]. Orders: Orders Cortisol Random 5 Weeks E03.9 - Hypothyroidism, unspecified Free T4 (Free Thyroxine) 5 Weeks E03.9 - Hypothyroidism, unspecified Thyroid Stimulating Hormone 5 Weeks E03.9 - Hypothyroidism, unspecified Thyroglobulin 5 Weeks E03.9 - Hypothyroidism, unspecified Medications: Refilled lactulose 20 grams (30 mL) PO TID 3,000 mL 0RF Coding Level of Care Code New Pt Level 4 (03164) Diagnoses Acquired hypothyroidism E03.9
--- OUTSIDE RECORDS SUMMARY | 2025-09-22 16:42 | XMS_ITS | Encounter Summary ---
Author Organization [facility] Address [address] [place] [address] Phone Care Team Providers Care Junior Recruiter Name Role Phone Yoko He MD Primary Care Provider [phone] Encounter Details Date Type Department Care Team (Late st Contact Info) Description 07/16/2025 Procedure Pass [facility], Ct Scan - [address] [address] Social History Tobacco Use Types Packs/Day Years Used Date Smoking Tobacco: Every Day Cigarettes 1 16 Started: 2009 Smokeless Tobacco: Never Alcohol Use Standard Drinks/Week Comments Not Currently 0 (1 standard drink = 0.6 oz pur e alcohol) OCCASIONALLY - 1 per month Education Answer Date Recorded Are you interested in more education? Not on jessica e 01/25/2023 Are you concerned about learning? Not on file 01/25/2023 No 01/25/2023 No 01/25/2023 Food Answer Date Recorded Within the past 6 months we worried whether our food would run out before we got money to buy more. Never True 07/16/2025 Within the past 6 months the food we bought just didn't last and we didn't have enough money to get more. Never True Residential Stability Answer Date Recor ded What is your housing situation today? I have mason sing 07/16/2025 How many times have you move d in the past 12 months? Zero (I did not move) 07/16/2025 Paying for Meds Answer Date Recorded Do you have trouble paying for medicines? No 07/16/2025 Paying Utility Bills Answer Date Record ed Do you have trouble paying your heating or elect ricity bill? No 07/16/2025 Transportation Answer Date Recorded Has the lack of transportati on kept you from medical appointments or from getting medications? No 07/16/2025 Digital Access Answer Date Recorded No 07/16/2025 Yes 07/16/2025 Do you have reliable internet access at home? Ye s 07/16/2025 Do you have a device (e.g., phone, tablet, computer) with a working camera? Yes 07/16/2025 Intimate Partner Violence Answer Date R ecorded Are you denied basic needs s uch as food, clothing, or medical care? No 07/16/2025 In the past 12 months have y ou been in a relationship with a person who hurts, threatens, or tries to control you? No 07/16/2025 Are you denied basic needs s uch as food, clothing, or medical care? No 07/16/2025 In the past 12 months have y ou been in a relationship with a person who hurts, threatens, or tries to control you? No 07/16/2025 Comments No Sex and Gender Information Value Date Recorded Sex Assigned at Female 04/13/2021 12:49 PM EDT Legal Sex Female 7:36 PM EST Gender Identity Female 04/13/2021 12:49 PM EDT Sexual Orientation Straight 04/13/2021 12 :49 PM EDT documented as of this encounter Plan of Treatment Upcoming Encounters Date Type Department Care Team (Late st Contact Info) Description 11/05/2025 11:40 AM EST Telemedicine [facility] 45 [facility]2-2 [place] [address] Austin Wynn MD, MPH 75 [facility] [place] [address] [email or web address] 03/10/2026 10:00 AM EDT Office Visit [facility] [address] [address] Noelle Nelson MD [address] [place] [address] [email or web address] 03/10/2026 11:20 AM EDT Office Visit [facility] [address] [address] Noelle Nelson MD [address] [place] [address] [email or web address] documented as of this encounter Visit Diagnoses Not on filedocumented in this encounter Care Teams Junior Recruiter Relationship Specialty Start Date End Date Yoko He MD [place] [address] PCP - General Internal Medicine 04/23/19 documented as of this encounter Additional Source Comments The information contained in this document represents components of the legal health record. It is not the complete legal health record.[facility]
--- OUTSIDE RECORDS SUMMARY | 2025-09-22 16:42 | XMS_ITS | Encounter Summary ---
Author Organization [facility] Address [address] [place] [address] Phone Care Team Providers Care Desktop Support Manager Name Role Phone Yoko He MD Primary Care Provider [phone] Encounter Details Date Type Department Care Team (Late Contact Info) Description 04/30/2019 Procedure Pass [facility] Periop 1st floor 1153 [place] [address] Social History Tobacco Use Types Packs/Day Years [...] Info) Description 11/05/2025 11:40 AM EST Telemedicine [facility] [address] [place], [place] [address] [place] [address] Austin Wynn MD, MPH 75 [facility] [place] [address] [email or web address] 03/10/2026 10:00 AM EDT Office Visit [facility] [address] Noelle Nelson MD [address] [place] [address] [email or web address] 03/10/2026 11:20 AM EDT Office Visit [facility] [address] [address] Noelle Nelson MD [address] [place] [address] [email or web address] documented as of this encounter Visit Diagnoses Not on filedocumented in this encounter Care Teams Desktop Support Manager Relationship Specialty Start Date End Date Yoko He MD [facility] [place] [address] PCP - General Internal Medicine 04/23/19 documented as of this encounter Additional Source Comments The information contained in this document represents components of the legal health record. It is not the complete legal health record.[facility]
--- OUTSIDE RECORDS SUMMARY | 2025-09-22 16:42 | XMS_ITS | Encounter Summary ---
Author Organization [facility] Address [address] [place] [address] Phone Care Team Providers Care Campaign Management Senior Manager Name Role Phone Yoko He MD Primary Care Provider [phone] Encounter Details Date Type Department Care Team (Late st Contact Info) Description 07/16/2025 Procedure Pass [facility], Ct Scan - [address] [address] Social History Tobacco Use Types Packs/Day Years [...] Info) Description 11/05/2025 11:40 AM EST Telemedicine [facility] 45 [facility]2-2 [place] [address] Austin Wynn MD, MPH 75 [facility] [place] [address] [email or web address] 03/10/2026 10:00 AM EDT Office Visit [facility]ology [facility] [address] [address] Noelle Nelson MD [address] [place] [address] [email or web address] 03/10/2026 11:20 AM EDT Office [facility] [address] [address] Noelle Nelson MD [address] [place] [address] [email or web address] documented as of this encounter Visit Diagnoses Not on filedocumented in this encounter Care Teams Campaign Management Senior Manager Relationship Specialty Start Date End Date Yoko He MD [facility] [place] [address] PCP - General Internal Medicine 04/23/19 documented as of this encounter Additional Source Comments The information contained in this document represents components of the legal health record. It is not the complete legal health record.[facility]
--- OUTSIDE RECORDS SUMMARY | 2025-09-22 16:42 | XMS_ITS | Encounter Summary ---
Author Organization [facility] Address [address] [place] [address] Phone Care Team Providers Care Otologist Name Role Phone Unknown, Unknown Primary Care Provider Jenniffer Mcgarry DO Primary Care Provider Yoko He MD Primary Care Provider [phone] Yoko He MD Primary Care Provider [phone] Encounter Details Date Type Department Care Team (Late Contact Info) Description 11/22/2017 Procedure Pass BWF Periop 1st floor 1153 [place], [place] [id number] Social History Tobacco Use Types Packs/Day Years [...] Encounters Date Type Department Care Team (Late Contact Info) Description 11/05/2025 11:40 AM EST Telemedicine [facility] 45 [facility]2-2 [place] [address] Austin Wynn MD, MPH 75 [facility] [place] [address] [email or web address] 03/10/2026 10:00 AM EDT Office Visit [facility] [address] [address] Noelle Nelson MD [address] [place] [address] [email or web address] 03/10/2026 11:20 AM EDT Office Visit [facility] [address] [address] Noelle Nelson MD [address] [place] [address] [email or web address] documented as of this encounter Visit Diagnoses Not on filedocumented in this encounter Care Teams Otologist Relationship Specialty Start Date End Date Unknown, Unknown, PCP - General 11/22/17 12/19/17 Jenniffer Najera DO [address] [place] [address] [email or web address] PCP - General Family Medicine 12/20/17 Yoko He MD [address] [place] [address] PCP - General Internal Medicine 03/18/19 03/18/19 Yoko He MD [address] [place] [address] PCP - General Internal Medicine 04/23/19 documented as of this encounter Additional Source Comments The information contained in this document represents components of the legal health record. It is not the complete legal health record.[facility]
--- OUTSIDE RECORDS SUMMARY | 2025-09-22 16:42 | XMS_ITS | Encounter Summary ---
Author Organization [facility] Address [address] [place] [address] Phone Care Team Providers Care Strategic Advisor Name Role Phone Yoko He MD Primary Care Provider [phone] Reason for Visit * Reason Comments Medication Refill Encounter Details Date Type Department Care Team (Late Contact Info) Description 05/05/2021 Refill [facility] [address] [address] Sabina Braxton MD [address] [place] [address] 3rd [place] [address] [email or web address] Medication Refill Social History Tobacco [...] Info) Description 11/05/2025 11:40 AM EST Telemedicine [facility] Gastroenterology Clinic [address] [address] [place] [address] Austin Wynn MD, MPH 75 [facility] [place] [place] [address] [email or web address] 03/10/2026 10:00 AM EDT Office Visit [facility] [address] [address] Noelle Nelson MD [address] [place] [address] [email or web address] 03/10/2026 11:20 AM EDT Office Visit [facility] [address] [place] [address] Noelle Nelson MD [address] [place] [address] [email or web address] documented as of this encounter Visit Diagnoses Not on filedocumented in this encounter Care Teams Strategic Advisor Relationship Specialty Start Date End Date Yoko He MD [place] [address] PCP - General Internal Medicine 04/23/19 documented as of this encounter Additional Source Comments The information contained in this document represents components of the legal health record. It is not the complete legal health record.[facility]
--- OUTSIDE RECORDS SUMMARY | 2025-09-22 16:42 | XMS_ITS | Encounter Summary ---
Author Organization [facility] Address [address] [place] [address] Phone Care Team Providers Care Business Education Instructor Name Role Phone CarollorenasamanWinter holland DO Primary Car e Provider Jenniffer Najera DO Primary Care Provider Deedee Hughes SUPERVISORY FORESTER Unavailable Kahlil Romeo MD Unavailable Ana Katz SUPERVISORY FORESTER Unavailable Wan Kaiser MD Unavailable Megan Sanchez DO Unavailable Luis Huerta MD Unavailable [phone] Jenniffer Najera DO Primary Care Provider Yoko He MD Primary Care Provider Unknown, Unknown Primary Care Provider Jenniffer Mcgarry DO Primary Care Provider Yoko He MD Primary Care Provider Yoko He MD Primary Care Provider [phone] Encounter Details Date Type Department Care Team (Late st Contact Info) Description 11/15/2016 Procedure Pass [facility] CT Imaging, [place] [address] [place] [address] Social History Tobacco Use Types Packs/Day Years [...] Info) Description 11/05/2025 11:40 AM EST Telemedicine [facility] Clinic [address] [address] [place] [address] Austin Wynn MD, MPH 75 [facility] [place] [address] [email or web address] U 03/10/2026 10:00 AM EDT Office Visit [facility] [address] [place] [address] Noelle Nelson MD [address] [place] [address] [email or web address] 03/10/2026 11:20 AM EDT Office Visit [facility] [address] [place] [address] Noelle Nelson MD [address] [place] [address] [email or web address] documented as of this encounter Visit Diagnoses Not on filedocumented in this encounter Care Teams Business Education Instructor Relationship Specialty Start Date End Date Winter Hauser DO [address] [place] [address] PCP - General Internal Medicine 11/03/16 03/29/17 Jenniffer Najera DO [address] [place] [address] [email or web address] PCP - General Family Medicine 03/30/17 08/05/17 Jenniffer Najera DO [address] [place] [address] [email or web address] PCP - General Family Medicine 08/06/17 09/11/17 Yoko He MD [address] [place] [address] PCP - General Internal Medicine 09/12/17 11/21/17 Rosetta Sargent MD [address] [place] [address] PCP - General 11/22/17 12/19/17 Jenniffer Najera DO [address] [place] [address] [email or web address] PCP - General Family Medicine 12/20/17 03/17/19 Yoko He MD [address] [place] [address] PCP - General Internal Medicine 03/18/19 03/18/19 Yoko He MD [address] [place] [address] PCP - General Internal Medicine 04/23/19 Deedee Hughes SUPERVISORY FORESTER [address] [place] [address] Historical LMR Provider 07/19/1709/11 Kahlil Romeo MD [address] [place] [address], [address] [place] [address] [email or web address] Historical LMR Provider 07/19/17 09/11/17 Ana Katz NP [address] [place] [address] Historical LMR Provider 07/19/1709/11 Wan Kaiser MD [address] [place] [address] [address] Historical LMR Provider 07/19/1709/11 Megan Sanchez DO 30 [place] [address] Historical LMR Provider 07/19/1709/11 Luis Huerta MD [address] [place] [address] Historical LMR Provider 07/19/1709/11 documented as of this encounter Additional Source Comments The information contained in this document represents components of the legal health record. It is not the complete legal health record.[facility]
--- OUTSIDE RECORDS SUMMARY | 2025-09-22 16:42 | XMS_ITS | Patient Health Record ---
Author [facility] [place] Address [address] [facility] KEISHA [place] [address] Care Team Providers Care Fruit Preserver Name Role Phone Ying CORCORAN, Yoko Primary Care Provider Gaby Merchant Unavailable [phone] Allergies Allergen (clinical drug ingredient) Drug/Non Drug Allergy documented on EMR Reaction Allergy Type Onset Date Status [place], wheat, Gluten, Melida, lettuce, tomatoes (uncoded) stomach [...] Treatment Pending Test Test Name Order Date [id number] Plate 08/13/2018 [id number] Plate 09/06/2018 Insurance Providers Payer Name Payer Address Payer Phone Subscriber Number Group Number Insured Name Patient Relationship to Insured Coverage Start Date Coverage End Date [facility] 65 Medicare Preferred [address] [place] [address] [id number] Jocelyn Waite Self - patient is the insured Medical (General) History Medical History History ICD Code Cancer Epilepsy Chicken pox Numbness thyroid Hashimotos thyroiditis Vitiligo Surgical History Surgery Date(Month/Year) kidney stones back surgery eye surgery spinal cord stimulator cyst removal cataract surgery Thyroid Surgery parathyroidectomy colon cancer/polyps
--- OUTSIDE RECORDS SUMMARY | 2025-09-22 16:42 | XMS_ITS | Encounter Summary ---
Author Organization [facility] Address [address] [place] [address] Phone Care Team Providers Care Production Foreman Name Role Phone Yoko He MD Primary Care Provider [phone] Reason for Visit * Reason Onset Date Comments Tianna MITTAL 08/05/2025 Encounter Details Date Type Department Care Team ([facility] Contact Info) Description 08/05/2025 Telephone [facility] Gastroenterology Clinic [address] [address] Austin Wynn MD, MPH 75 [place] [address] [email or web address] Tianna MITTAL Social History Tobacco Use Types Packs/Day Years [...] your housing situation today? I have mason arita 07/16/2025 How many times have you move [...] PM EDT documented as of this encounter Progress Notes * Kade Posey - 08/25/2025 3:07 PM EST Pt is calling to see if PRIOR AUTH has been approved on med lubiprostone (AMITIZA) 24 MCG capsule [[id number]] Dose: 24 mcg Route: Oral Frequency: 2 times daily with meals Dispense Quantity: 60 capsule (30 day supply) Refills: 3 Duration: -- Dispense As Written: No Sig: Take 1 capsule (24 mcg total) by mouth 2 (two) times a day with meals. [employer] ID# [id number] BIN [id number] N MEDDADV GRP # [id number] SURVEY MANAGER: [id number] [facility] [id number] Please send to Pharmacy [facility]/pharmacy #[address] [place] [address] Pt CB# [phone] NOTE pt calling again about this request Thank you Kade Kirkland Patient Turf Grower Department of Medicine, Access Center * Lisseth Hicks - 08/20/2025 12:58 PM EST Pt is calling to see if PRIOR AUTH has been approved on med lubiprostone (AMITIZA) 24 MCG capsule [[id number]] Dose: 24 mcg Route: Oral Frequency: 2 times daily with meals Dispense Quantity: 60 capsule (30 day supply) Refills: 3 Duration: -- Dispense As Written: No Sig: Take 1 capsule (24 mcg total) by mouth 2 (two) times a day with meals. [employer] ID# [id number] BIN [id number] N MEDDADV GRP # [id number] SURVEY MANAGER: [id number] [facility] [id number] Please send to Pharmacy [facility]/pharmacy #[address] [place] [address] Pt CB# [phone] Thank you, LISSETH Sullivan Patient Turf Grower Department of Medicine, Access Center * Deedee Mathis - 08/18/2025 1:26 PM EST Request received from: call from plan RX: Amitiza 24 mcg Ins: BCBSMA ID#: [id number] Ins Phone #: [phone] * Lisseth Hicks - 08/05/2025 2:35 PM EST Pt is calling for a Prior Auth for med lubiprostone (AMITIZA) 24 MCG capsule [[id number]] Dose: 24 mcg Route: Oral Frequency: 2 times daily with meals Dispense Quantity: 60 capsule (30 day supply) Refills: 3 Duration: -- Dispense As Written: No Sig: Take 1 capsule (24 mcg total) by mouth 2 (two) times a day with meals. Please send to Pharmacy [facility]/pharmacy #[id number] [place], [place] - [address] [place] [address] [place] [address] Pt CB# [phone] Thank you, LISSETH Sullivan Patient Turf Grower Department of Medicine, Access Center documented in this encounter Plan of Treatment Upcoming Encounters Date Type Department Care Team (Late st Contact Info) Description 11/05/2025 11:40 AM EST Telemedicine [facility] Gastroenterology Clinic [address] [address] [place] [address] Austin Wynn MD, MPH 75 [facility] [address] [email or web address] 03/10/2026 10:00 AM EDT Office Visit [facility] [address] [address] Noelle Nelson MD [address] [place] [address] [email or web address] 03/10/2026 11:20 AM EDT Office Visit [facility] [address] [place] [address] Noelle Nelson MD [address] [place] [address] 5[address] [place] [address] [email or web address] documented as of this encounter Visit Diagnoses Not on filedocumented in this encounter Care Teams Production Foreman Relationship Specialty Start Date End Date Yoko He MD [address] [place] [address] PCP - General Internal Medicine 04/23/19 documented as of this encounter Additional Source Comments The information contained in this document represents components of the legal health record. It is not the complete legal health record.[facility]
--- OUTSIDE RECORDS SUMMARY | 2025-09-22 16:42 | XMS_ITS | Encounter Summary ---
Author Organization [facility] Address [address] [place] [address] Phone Care Team Providers Care Aoc Operations Intelligence Officer Name Role Phone Unknown, Unknown Primary Care Provider Jenniffer Mcgarry DO Primary Care Provider Yoko He MD Primary Care Provider [phone] Yoko He MD Primary Care Provider [phone] Encounter Details Date Type Department Care Team (Late st Contact Info) Description 11/22/2017 Ancillary Orders [facility] [address] [place] [address] Fredis Nuñez MD, ZAIDA [address] [address] [email or web address] Pain Social History Tobacco Use Types Packs/Day [...] Info) Description 11/05/2025 11:40 AM EST Telemedicine [facility] 45 [facility] ASB2-2 [place] [address] Austin Wynn MD, MPH 75 [facility] [place] [address] [email or web address]. U 03/10/2026 10:00 AM EDT Office Visit [facility] [address] [address] Noelle Nelson MD [address] [place] [address] [email or web address] 03/10/2026 11:20 AM EDT Office Visit [facility] [address] [place] [address] Noelle Nelson MD [address] [place] [address] [email or web address] documented as of this encounter Results * FL Fluoroscopy Less Than 1 Hour (11/22/2017 4:25 PM EST) Narrative ARAMIS - 11/22/2017 4:27 PM EST Fluoroscopy was provided during this procedure. us Fredis Nuñez MD, ZAIDA IMG [place] MISC Final Result [email or web address] documented in this encounter Visit Diagnoses Diagnosis Pain Generalized pain Pain Generalized pain documented in this encounter Care Teams Aoc Operations Intelligence Officer Relationship Specialty Start Date End Date Unknown, Unknown, PCP - General 11/22/17 12/19/17 Jenniffer Najera DO [address] [place] [address] [email or web address] PCP - General Family Medicine 12/20/17 Yoko He MD [address] [place] [address] PCP - General Internal Medicine 03/18/19 03/18/19 Yoko He MD [address] [place] [address] PCP - General Internal Medicine 04/23/19 documented as of this encounter Additional Source Comments The information contained in this document represents components of the legal health record. It is not the complete legal health record.[facility]
--- OUTSIDE RECORDS SUMMARY | 2025-09-22 16:42 | XMS_ITS | Encounter Summary ---
Author Organization [facility] Address [address] [place] [address] [place] [address] Phone Care Team Providers Care Black Jack Dealer Name Role Phone Yoko He MD Primary Care Provider [phone] Encounter Details Date Type Department Care Team (Late st Contact Info) Description 09/04/2025 Procedure Pass [facility] [address] [place] [address] Social History Tobacco Use Types Packs/Day Years [...] Info) Description 11/05/2025 11:40 AM EST Telemedicine [facility] 45 [facility]2-2 [place] [address] Austin Wynn MD, MPH 75 [facility] [place] [address] [email or web address] 03/10/2026 10:00 AM EDT Office Visit [facility] [address] [address] Noelle Nelson MD [address] [place] [address] [email or web address] 03/10/2026 11:20 AM EDT Office Visit [facility] [place] [facility] [address] [address] Noelle Nelson MD [address] [place] [address] [email or web address] documented as of this encounter Visit Diagnoses Not on filedocumented in this encounter Care Teams Black Jack Dealer Relationship Specialty Start Date End Date Yoko He MD [facility] [place] [address] PCP - General Internal Medicine 04/23/19 documented as of this encounter Additional Source Comments The information contained in this document represents components of the legal health record. It is not the complete legal health record.[facility]
--- OUTSIDE RECORDS SUMMARY | 2025-09-22 16:42 | XMS_ITS | Continuity of Care Document ---
Author Organization [place] - [facility], [facility] Address [address] [place] [address] Care Team Providers Care Press And Blow Machine Tender Name Role Phone CHRISTIANO ADAM Primary Care Provider [phone] Assessment Encounter Date Assessment Date Assessment LastModified by Organization Details LastModified Time 07/06/2025 07/06/2025 42-year-old female with history of tobacco use and recurrent otitis media with eustachian tube dysfunction. On exam her ears are normal today. Tuning forks are also expected. We did discuss tobacco cessation to help improve potential irritants in the nose and ear. I encouraged her to continue nasal saline irrigation as well as gall breath maneuver if needed. Follow-up as needed [email or web address] Not available 07/06/2025 15:26:27 Plan of Treatment Reminders Order Date Submit Date Provider Last Modified By Organization Details Last Modified Time Details Appointments None record ed. Lab None record ed. Referral None record ed. Procedures None record ed. Surgeries None record ed. Imaging None record ed. Medication Orders None record ed. Patient TargetsNo targets recorded. Patient InstructionsNo instructions recorded. Reason for Referral None Reported. Problems Name Problem SNOMED Code Status Onset Date Resolution Date Notes Provider Name and Address Organization Details Recorded Time Recurrent acute otitis media 571247349 Active 025 Renny Huerta DO [address] [place] [address], [phone], [facility] 13:03:01 Allergic rhinitis 42559270 Active 025 Renny Huerta DO [address] [place] [address], [phone], [facility] 15:26:03 Problem Notes None recorded. Medical Equipment None Reported. Allergies No known drug allergies Medications Name Sig Start Date Stop Date Status Note LastModified by Organization Details LastModified Time prednisolon e acetate 1 % eye drops,suspe nsion INSTILL 1 DROP INTO RIGHT EYE 3 TIMES A DAY 07/06 completed Not Available Not Available Not Available pantoprazol e 40 mg tablet,santiago yed release TAKE 1 TABLET BY MOUTH TWICE A DAY active Not Available Not Available No t Available hyoscyamine sulfate 0.125 mg tablet TAKE 1 TABLET BY MOUTH 2 TO 4 TIMES A DAY NEEDED FOR DYSPEPSIA active Not Available Not Available No t Available esomeprazol e magnesium 40 mg capsule,del ayed release TAKE 1 CAPSULE BY MOUTH EVERY DAY active Not Available Not Available No t Available mupirocin 2 % topical ointment PLEASE SEE ATTACHED FOR DETAILED DIRECTION S active Not Available Not Available No t Available fluticasone propionate 50 mcg/actuati on nasal spray,suspe nsion SPRAY 1 SPRAY INTRANASA LLY TWICE A DAY active Not Available Not Available No t Available oxycodone 5 mg tablet PLEASE SEE ATTACHED FOR DETAILED DIRECTION S active Not Available Not Available No t Available diclofenac 1 % topical gel APPLY 4 GRAMS TOPICALLY 4 TIMES A DAY APPLY TO LEFT KNEE active Not Available Not Available No t Available Gavilax 17 gram/dose oral powder PLEASE SEE ATTACHED FOR DETAILED DIRECTION S 07/06 completed Not Available Not Available Not Available Tirosint 112 mcg capsule TAKE 1 CAPSULE BY MOUTH EVERY DAY active Not Available Not Available No t Available sodium,pota ssium,mag sulfates 17.5 gram-3.13 gram-1.6 gram oral soln DILUTE DRINK 1/2 AT 6-8 PM AND HALF AT 11 PM- 1AM active Not Available Not Available No t Available Antiseptic Skin Cleanser (chlorhexid ine) 4 % liquid PLEASE SEE ATTACHED FOR DETAILED DIRECTION S active Not Available Not Available No t Available Vitals None Recorded Social History None recorded. Functional Status None recorded. Mental Status None recorded. Family History Nothing Reported. Medical History No medical history recorded. Gynecological HistoryNo gynecological history recorded. Obstetrics History GPAL:G 0 P 0 0 0 0 Past Encounters Encounter ID Performer Location Encounter Start Date Encounter Closed Date Diagnosis/Indication Diagnosis SNOMED-CT Code Diagnosis ICD10 Code Diagnosis IMO Codes Diagnosis Note [id number] Renny Huerta DO [facility] [address] [place] [address] 07/06/2025 15:05:19 07/06/2025 15:26:01 Recurrent acute otitis media 275074847 H66.90 572323 Allergic rhinitis 793286 04 J30.9 1480461 We discussed conservati ve ways to help control their allergen exposure including: washing sheets and pillowcase s in hot water weekly, use of hypoallerg enic sheets and products, use of masks when outside or performing lawn care, HEPA air filter use, avoidance of animal dander in the home, and continuati on of nasal irrigation to reduce pollution exposure in the nasal cavity. She is not interested in any other oral/nasal medication s or allergy treatment, prefers natural route. Health Concerns Section Related Observation LastModified by Organization Detai ls LastModified Time None Recorded Concern Status LastModified by Organization Details LastModified Time None Recorded Payers Encounter Date Sequence Insurance Name Policy Number Policy Centeno Covered Member ID Centeno Member ID Guarantor Name 07/06/2025 1 [facility]: MEDICARE PPO BLUE (MEDICARE REPLACEMENT PPO) [id number] Jocelyn Bowers [id number] Jocelyn Bowers Notes Date Note Type Note Provider Name and Address Organization Details Recorded Time 07/06/2025 text/html ROS as noted in the HPI The patient presents with family for otologic concerns. Patient was recently seen in urgent care for ear concerns, was diagnosed with otitis media and given antibiotics which she did not take. She tends to avoid medications. Is a current smoker. Episodes per year: 1 Episodes per last 6-months: 1 Courses of Abx/Steroids: None Other interventions: Saline sprayShe does lymphatic drainage to the neck and ear. Prior ear surgery: YesTubes as a child. FMhx Hearing loss: No Renny Huerta DO [address] [place] [address], [phone], [facility] - [facility] 07/06/2025 15:26:44 OBGyn Episode No OBEpisode recorded.
--- OUTSIDE RECORDS SUMMARY | 2025-09-22 16:42 | XMS_ITS | Encounter Summary ---
Author Organization [facility] Address [address] [place] [address] Phone Care Team Providers Care Custodial Worker Name Role Phone Yoko He MD Primary Care Provider [phone] Encounter Details Date Type Department Care Team (Late st Contact Info) Description 03/24/2021 Procedure Pass [facility] Imaging, [place] [address] [place] [address] Social History Tobacco Use Types Packs/Day Years [...] Info) Description 11/05/2025 11:40 AM EST Telemedicine [facility] [address] [address] [place] [address] Austin Wynn MD, MPH 75 [facility] [place] [address] [email or web address] 03/10/2026 10:00 AM EDT [facility] [address] [address] [address] Noelle Nelson MD [address] [place] [address] [email or web address] 03/10/2026 11:20 AM EDT Office Visit [facility] [address] [address] Noelle Nelson MD [address] [place] [address] [email or web address] documented as of this encounter Visit Diagnoses Not on filedocumented in this encounter Care Teams Custodial Worker Relationship Specialty Start Date End Date Yoko He MD [address] [place] [address] PCP - General Internal Medicine 04/23/19 documented as of this encounter Additional Source Comments The information contained in this document represents components of the legal health record. It is not the complete legal health record.[facility]
--- OUTSIDE RECORDS SUMMARY | 2025-09-22 16:42 | XMS_ITS | Data Portability ---
Author Organization [place] - [facility], Allergy Address [address] [address] Care Team Providers Care Director Of Physiotherapy Services Name Role Phone CHRISTIANO ADAM Primary Care Provider [phone] Assessment Encounter Date Assessment Date Assessment LastModified [...] Details Recorded Time Recurrent acute otitis media 661311518 Active 025 Renny Huerta DO [address] [place] [address], [place], [address], [facility] 13:03:01 Allergic rhinitis 67224220 Active 025 Renny Huerta [address] [address], [place], [address], [place] - [facility] 15:26:03 Problem Notes None recorded. Medical [...] ICD10 Code Diagnosis IMO Codes Diagnosis Note [id number] Renny Huerta DO ENTS of [address] [address] 07/06/2025 15:05:19 07/06/2025 15:26:01 Recurrent acute otitis media 063480318 H66.90 570810 Allergic rhinitis 259972 04 J30.9 0982185 We discussed conservati ve ways to help [...] by Organization Details LastModified Time None Recorded Advance Directives Directive None Recorded Payers Insurance Date Sequence Insurance Name Policy Number Policy Centeno Covered Member ID Centneo Member ID Guarantor Name 07/06/2025 1 [place] [employer] Jocelyn C Sayre [id number] Jocelyn C Elissa 08/05/2025 1 [place]MEDIC[place] PPO) [id number] Jocelyn C Sayre [id number] Jocelyn C Elissa 08/05/2025 2 [place] [facility] Jocelyn C Sayre [id number] Jocelyn C Sayre Notes Date Note Type Note Provider Name [...] FMhx Hearing loss: No Renny Huerta DO [address] [place] [address], [phone], [facility] - [facility] 07/06/2025 15:26:44 OBGyn Episode No OBEpisode recorded.
--- OUTSIDE RECORDS SUMMARY | 2025-09-22 16:42 | XMS_ITS | Encounter Summary ---
Author Organization [facility] Address [address] [place] [address] Phone Care Team Providers Care Systems Support Officer Name Role Phone Yoko He MD Primary Care Provider [phone] Encounter Details Date Type Department Care Team (Late st Contact Info) Description 04/10/2025 Procedure Pass [facility] Periop 1st floor [address] [place] [address] Social History Tobacco Use Types Packs/Day Years [...] Description 11/05/2025 11:40 AM EST Telemedicine [facility] [address] [address] [place] [address] Austin Wynn MD, MPH [address] [facility] [address] [email or web address] 03/10/2026 10:00 AM EDT Office Visit [facility] Immunology [facility] [address] [address] Noelle Nelson MD [address] [place] [address] [email or web address] 03/10/2026 11:20 AM EDT Office Visit [facility] [address] [place] [address] Noelle Nelson MD [address] [place] [address] [email or web address] documented as of this encounter Visit Diagnoses Not on filedocumented in this encounter Care Teams Systems Support Officer Relationship Specialty Start Date End Date Yoko He MD [address] [place] [address] PCP - General Internal Medicine 04/23/19 documented as of this encounter Additional Source Comments The information contained in this document represents components of the legal health record. It is not the complete legal health record.[facility]
--- OUTSIDE RECORDS SUMMARY | 2025-09-22 16:42 | XMS_ITS | Encounter Summary ---
Author Organization [facility] Address [address] [place] [address] Phone Care Team Providers Care Supervisor Chassis Assembly Name Role Phone Yoko He MD Primary Care Provider [phone] Encounter Details Date Type Department Care Team (Late st Contact Info) Description 09/04/2025 Hospital Encounter [facility] [address] [place] [address] Social History Tobacco Use Types Packs/Day Years [...] Info) Description 11/05/2025 11:40 AM EST Telemedicine [facility] 45 [facility]2-2 [place] [address] Austin Wynn MD, MPH 75 [facility] [place] [address] [email or web address] 03/10/2026 10:00 AM EDT Office Visit [facility]ology [facility] [address] [address] Noelle Nelson MD [address] [place] [address] [email or web address] 03/10/2026 11:20 AM EDT Office Visit [facility] [address] [address] Noelle Nelson MD [address] [place] [address] [email or web address] documented as of this encounter Visit Diagnoses Not on filedocumented in this encounter Care Teams Supervisor Chassis Assembly Relationship Specialty Start Date End Date Yoko He MD [facility] [place] [address] PCP - General Internal Medicine 04/23/19 documented as of this encounter Additional Source Comments The information contained in this document represents components of the legal health record. It is not the complete legal health record.[facility]
--- OUTSIDE RECORDS SUMMARY | 2025-09-22 16:42 | XMS_ITS | Clinical Summary ---
Author Organization [facility] Address [address] [place] [address] Phone Care Team Providers Care Supercalender Operator Name Role Phone Yoko He MD Primary Care Provider [phone] Allergies Active Allergy Reactions Criticality Noted Date Comments [place] Containing Products GI Upset Medium 04/23/2019 Abdominal [...] And bloating Medications levothyroxine (TIROSINT) 150 mcg CapIndications:a djunct to surgery or radiotherapy for thyroid carcinoma,125 ALT WITH 137 112 mcg. 6 days a week Indications: additional treatment for thyroid cancer, 125 ALT WITH 137 Active Bacillus coagulans/inulin (PROBIOTIC WITH PREBIOTIC ORAL) Take by mouth. Active fluticasone propionate (FLONASE) 50 mcg/actuation nasal spray 1 spray by Nasal route daily. 03/16/20 Active omeprazole (PRILOSEC) 40 MG capsule Take 1 capsule (40 mg total) by mouth daily. 30 min before dinner 90 capsule 3 08/04/20 25 026 Active linaCLOtide (LINZESS) 145 mcg Cap Take 1 capsule (145 mcg total) by mouth daily. 90 capsule 3 09/04/20 Active EPINEPHrine 0.3 mg/0.3 mL auto-injector Inject 0.3 mL (0.3 mg total) into the muscle as needed for anaphylaxis. 2 each 2 09/19/20 Active oxyCODONE 5 MG immediate release tablet Take 1 tablet (5 mg total) by mouth every 6 (six) hours as needed for pain (specific location in comments). Partial fill ok - post surgical pain 10 tablet 04/10/20 25 025 Discontinu ed(No longer taking) oxyCODONE 5 MG immediate release tablet Take [...] - for continued post-surgical pain 30 tablet 04/16/20 25 025 Discontinu ed(No longer taking) lubiprostone (AMITIZA) 24 MCG capsule Take 1 capsule (24 mcg total) by mouth 2 (two) times a day with meals. 180 capsule 3 08/21/20 25 025 Discontinu ed(Cost of medication ) polyethylene glycol (GOLYTELY) 236-22.74-6.74 -5.86 gram solution Take 4,000 mL by mouth once for 1 dose. Take a glass as needed if no BM after 2-3 days, as rescue treatment for refractory chronic constipation. 1 mL 09/04/20 25 Active Problems Problem Noted Date Diagnosed Date [...] Encounters Date Type Department Care Team Description 09/16/2025 8:00 AM EST Office Visit [facility] [address] [address] Noelle Nelson MD Adverse food reaction, initial encounter (Primary Dx); Non-seasonal allergic rhinitis due to other allergic trigger; Allergic conjunctivitis of both eyes; Smoking greater than 10 pack years 09/04/2025 Hospital Encounter [address] [address] 09/04/2025 Procedure Pass [address] [address] 09/04/2025 Telephone [facility] [address] [place] [address] Austin Wynn MD, MPH 09/04/2025 Orders Only [facility] [address] [place] [address] Austin Wynn MD, MPH 09/04/2025 Telephone [facility] [address] [place] [address] Austin Wynn MD, MPH Austin Lo/ Pt Advice 08/21/2025 Refill [facility] [address] [place] [address] Austin Wynn MD, MPH Medication Refill 08/20/2025 Orders Only [facility] [address] [place] [address] Austin Wynn MD, MPH 08/20/2025 Telephone [facility] [address] [place] [address] Laila Cosby Lo/medication 08/20/2025 Telephone [facility] [address] [facility] [address] [place] [address] Deangelo Canela 08/05/2025 Telephone [facility] [address] [place] [address] Austin Wynn MD, MPH Tianna - Amisukhdeep PA 08/04/2025 3:40 PM EST Telemedicine [facility] [address] [place] [address] Austin Wynn MD, MPH Generalized abdominal pain (Primary Dx); Irritable bowel syndrome with constipation 07/16/2025 2:40 PM EDT - 07/16/2025 10:03 PM EDT Emergency [facility] [address] [place] [address] Tyler Escudero MD, DPHIL Discharge Disposition: Home or Self Care 07/16/2025 Procedure Pass [facility] Scan [address] [address] 07/16/2025 Procedure Pass [place], Ct Scan [address] [address] 07/06/2025 Telephone [facility] [address] [place] [address] Jj Cleaning MD, MPH Appointment (Patient called to make appointment, informed she needs referral. Stated she had surgery [address] Colorado. Her PCP doesn't believe her and wants records to confirm. I told her to contact Medical Records to retrieve all surgical notes. Dr. Cleaning earliest is 2024. I told her to go to urgent care or ER, they did CT on 06/27/25, but shows no hernia. 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.) 06/27/2025 11:41 AM EDT - 06/27/2025 4:00 PM EDT Emergency [facility] [address] [place] [address] Brian Alejandro MD Discharge Disposition: Home or Self Care 06/27/2025 Procedure Pass [facility], Ct Scan - [address] [address] from Last 3 Months Immunizations Immunization Administration [...] 1 16 Started: 2009 Smokeless Tobacco: Never Tobacco Cessation:Ready [...] Sign Reading Time Taken Comments Blood Pressure 141/68 09/16/2025 8:15 AM EST Pulse 94 09/16/2025 8:15 AM EST Temperature 36.8 C (98.2 F) 07/16/2025 1:51 PM EDT Respiratory Rate 18 07/16/2025 9:18 PM EDT Oxygen Saturation 96% 08/04/2025 11:22 AM EST Inhaled Oxygen Concentration - - Weight 68 kg (150 lb) 09/16/2025 8:15 AM EST Height 175.3 cm (5' 9 ) 08/04/2025 11:22 AM EST Body Mass Index 22.15 08/04/2025 11:22 AM EST Plan of Treatment Upcoming Encounters Date Type Department Care Team (Late st Contact Info) Description 11/05/2025 11:40 AM EST Telemedicine [facility] [address] [facility] [place] [address] Austin Wynn MD, MPH [address] [facility] [place] [address] [email or web address] 03/10/2026 10:00 AM EDT Office Visit [facility] [address] [place] [address] Noelle Nelson MD [address] [place] [address] [email or web address] 03/10/2026 11:20 AM EDT Office Visit [facility] [address] [place] [address] Noelle Nelson MD [address] [place] [address] [email or web address] Maintenance Due Date Last Done Comments LIPID PANEL 1977 HEPATITIS C SCREENING 1995 HIV ONE-TIME SCREENING (18-6 5 YEARS) 1995 PNEUMOCOCCAL VACCINES (0-49 years) (1 of 2 - PCV) 1996 MAMMOGRAM 2017 PAP SMEAR 08/21/2017 08/21/2014 Adult Td,Tdap Booster 12/17/2021 12/18/2011 , 04/30/2006, 02/27/2001 COLOGUARD 2022 COLONOSCOPY 2022 COLORECTAL CANCER SCREENING 2022 FIT TEST 2022 FOBT 2022 SIGMOIDOSCOPY 2022 VIRTUAL COLONOSCOPY 2022 DEPRESSION SCREENING 12/17/2024 12/18/2023 INFLUENZA VACCINE (#1) 2025 COVID-19 VACCINE (2024-2 6 season) 2025 TSH LEVEL 08/05/2026 08/05/2025 SMOKING Hx and SMOKELESS TOBACCO SCREENING 09/19/2026 09/19/2025 HEPATITIS A VACCINES Aged Out No long [...] this topic Medical Devices Implanted Type Area Truck Bench Mechanic Device Identifier Shelf Expiration Date Model / Serial / Lot Kit Lead Neurostimulator 60cm [id number] Restore - [id number] Implanted:Qty: 1 on 11/22/2017 [facility] [employer] 10/19/2020 [id number] / / [id number] Kit Lead Neurostimulator 60cm [id number] Restore - [id number] Implanted:Qty: 1 on 11/22/2017 by [facility] Back [employer] 10/19/2020 [id number] / / [id number] Mesh Surgical 15cm 8 Hernia Prolene Polypropylene Nonabsorbable Repair Bx/6ea - [id number] Implanted:Qty: 1 on 04/30/2019 by Sal Colorado MD, MS at [facility] STANDARD N/A: Abdomen JNJ ETHICON / DIVISION OF J 03/30/2023 [id number] / / [id number] Left Eyeball Buckle Lt. Opthal. Lense Generator Neurostimulator Intellis Battery - [id number] Implanted:Qty: 1 on 11/22/2017 by Fredis Nuñez MD, ZAIDA at [facility] Left: Spine Lumbar [employer] 10/28/2018 [id number] / [id number] / Implantable Pulse Generator Closed Loop Ins [facility] Mri - [id number] Implanted:Qty: 1 on 04/10/2025 by Fredis Nuñez MD, ZAIDA at [facility] N/A: Spine Lumbar [employer] [place] 01/26/2026 [id number] / [id number] 1H / Procedures Procedure Name Priority Date/Time Associated Diagnosis Comments OUTSIDE PATHOLOGY 08/19/2025 OUTSIDE PATHOLOGY 08/19/2025 OUTSIDE LAB 08/19/2025 OUTSIDE IMAGING 08/19/2025 OUTSIDE PROCEDURE 08/19/2025 OUTSIDE PROCEDURE 08/19/2025 N-METHYLHISTAMINE, 24 HR URINE Today 08/10/2025 11:42 AM EST Generalized abdominal pain 5-HYDROXYINDOLEACETIC ACID (5-HIAA), 24 HR URINE Today 08/10/2025 11:42 AM EST Generalized abdominal pain OUTSIDE PATHOLOGY 08/10/2025 OUTSIDE PATHOLOGY 08/10/2025 OUTSIDE LAB 08/10/2025 OUTSIDE IMAGING 08/10/2025 OUTSIDE PROCEDURE 08/10/2025 OUTSIDE PROCEDURE 08/10/2025 FREE T4 Routine 08/05/2025 3:28 PM EST Generalized abdominal pain COMPLEMENT C3 Routine 08/05/2025 3:28 PM EST Generalized abdominal pain COMPLEMENT C4 Routine 08/05/2025 3:28 PM EST Generalized abdominal pain TSH WITH REFLEX Routine 08/05/2025 3:28 PM EST Generalized abdominal pain TRYPTASE Routine 08/05/2025 3:28 PM EST Generalized abdominal pain PORPHOBILINOGEN QUANTITATIVE, URINE Routine 08/05/2025 3:28 PM EST Generalized abdominal pain CT ANGIO ABDOMEN/PELVIS WITH AND WITHOUT CONTRAST Routine 07/16/2025 6:55 PM EDT LACTIC ACID (LACTATE) STAT 07/16/2025 6:[address] ABDOMEN/PELVIS WITH CONTRAST Routine 07/16/2025 4:52 PM EDT URINALYSIS WITH REFLEX TO URINE CULTURE STAT 07/16/2025 4:24 PM EDT LIPASE STAT 07/16/2025 2:22 PM EDT LFTS (HEPATIC PANEL) STAT 07/16/2025 2:22 PM EDT HCG, SERUM QUALITATIVE STAT 2:22 PM EDT BASIC METABOLIC PANEL (BMP) STAT 07/16/2025 2:22 PM EDT CBC AND DIFFERENTIAL STAT 07/16/2025 2:22 PM EDT ECG 12-LEAD STAT 07/16/2025 2:[address] ABDOMEN/PELVIS WITH CONTRAST Routine 06/27/2025 1:41 PM EDT LIPASE STAT 06/27/2025 12:34 PM EDT LFTS (HEPATIC PANEL) STAT 06/27/2025 12:34 PM EDT HCG, SERUM QUALITATIVE STAT 12:34 PM EDT BASIC METABOLIC PANEL (BMP) STAT 06/27/2025 12:34 PM EDT CBC AND DIFFERENTIAL STAT 06/27/2025 12:34 PM EDT URINALYSIS WITH REFLEX TO URINE CULTURE STAT 06/27/2025 12:17 PM EDT from Last 3 Months Results * Outside Imaging Report Only (08/19/2025) us Scanning Interface Provider IMG XR CHEST Madie l Result * Outside Procedure (08/19/2025) us Scanning Interface Provider PROCEDURE/MINOR SURG ICAL PERFORMABLES Final Result * Outside Procedure (08/19/2025) us Scanning Interface Provider PROCEDURE/MINOR SURG ICAL PERFORMABLES Final Result * Outside Lab (Non-MGB) (08/19/2025) Only the most recent of2 resultswithin the time period is included. us Scanning Interface Provider LAB BLOOD BKR ORDERA BLES Final Result * Outside Pathology (08/19/2025) Only the most recent of4 resultswithin the time period is included. us Scanning Interface Provider PATHOLOGY ORDERABLES Final Result * N-Methylhistamine, 24 Hr Urine (08/10/2025 11:42 AM EST) N-Methylhistamine, 24 Hr 199 30 - 200 mcg/g Cr 08/14/2025 3:12 PM EST [facility] [address] Comment: ADDITIONAL INFORMATION This test was developed and its performance characteristics determined by [facility] in a manner consistent with CLIA requirements. This test has not been cleared or approved by the U.S. Food and Drug Administration. Creatinine, 24 HR, U 1040 603 - 1783 mg/24 h 08/14/2025 3:12 PM EST [facility] Collection Duration: 24 h 08/01 3:12 PM EST [facility] Urine Volume: 1300 mL 08/14/2025 3:12 PM EST [facility] Creatinine Concentration, 24 HR, U 80 mg/dL 08/14/2025 3:12 PM EST [facility] Urine (Urine, Voided) Non-Blood Collection / Unknown 08/10/2025 11:42 AM EST 08/10/2025 2:47 PM EST [facility] [place]aro Wynn MD, MPH LAB URINE ORDERABLES Final Re sult SUZANNE VALDEZ) [facility] [address] [place] [address], [facility] [phone] [facility] [address] [place] [address], [facility] [phone] * 5-Hydroxyindoleacetic Acid (5-HIAA), 24 Hr Urine (08/10/2025 11:42 AM EST) 5-Hydroxyindoleaceti c Acid, U 4.6 <=7.6 mg/24 h 08/12/2025 12:40 PM EST [facility] Collection Duration 24 h 08/12 12:40 PM EST [facility] Urine Volume 1300 mL 08/12/2025 12:40 PM EST [facility] Comment: ADDITIONAL INFORMATION Liquid Chromatography-Tandem Mass Spectrometry (LC-MS/MS). Values obtained from different assay methods or kits may be different and cannot be used interchangeably. The results cannot be interpreted as absolute evidence for the presence or absence of malignant disease. This test was developed and its performance characteristics determined by [facility] in a manner consistent with CLIA requirements. This test has not been cleared or approved by the U.S. Food and Drug Administration. Urine (Urine, Voided) Non-Blood Collection / Unknown 08/10/2025 11:42 AM EST 08/10/2025 2:47 PM EST us Austin Wynn MD, MPH LAB URINE ORDERABLES Final Re sult PALACIOS (BEAKER) [facility] [address] [place] [address], [place] [phone] * Outside Imaging Report Only (08/10/2025) us Scanning Interface Provider IMG XR CHEST Madie l Result * Outside Procedure (08/10/2025) us Scanning Interface Provider PROCEDURE/MINOR SURG ICAL PERFORMABLES Final Result * Outside Procedure (08/10/2025) us Scanning Interface Provider PROCEDURE/MINOR SURG ICAL PERFORMABLES Final Result * Porphobilinogen Quantitative, Urine (08/05/2025 3:28 PM EST) Porphobilinogen, U 0.3 <=1.3 mcmol/L 08/11/2025 1:40 PM EST [facility] Interpretation (PBGU) SEE COMMENTS 08/11/2025 1:40 PM EST [facility] Comment: RESULT: In this sample, the excretion of porphobilinogen was normal. ADDITIONAL INFORMATION Liquid Chromatography-Tandem Mass Spectrometry (LC-MS/MS) This test was developed and its performance characteristics determined by [facility] in a manner consistent with CLIA requirements. This test has not been cleared or approved by the U.S. Food and Drug Administration. Reviewed By SEE COMMENTS 08/11/2025 1:40 PM EST [facility] Comment:RESULT: Catina zapata M.D., Ph.D. Urine (Urine, Voided) Non-Blood Collection / Unknown 08/05/2025 3:28 PM EST 08/05/2025 3:39 PM EST us Austin Wynn MD, MPH LAB URINE ORDERABLES Final Re sult SUZANNE VALDEZ) [facility] [address] [place] [address], [facility] [phone] * Tryptase (08/05/2025 3:28 PM EST) Tryptase 4.8 0.1 - 11.5 ug/L 08/10/2025 6:34 PM EST [facility] CLINICAL IMMUNOLOGY LAB Blood (Blood) Venipuncture / Unknown 08/05/2025 3:28 PM EST 08/05/2025 3:39 PM EST us Austin Wynn MD, MPH LAB BLOOD BKR ORDERABLES Madie l Result [facility] [address] [place] [address] * (ABNORMAL) Thyroid Stimulating Hormone (TSH), with Reflex (08/05/2025 3:28 PM EST) TSH 0.34(L) 0.40 - 5.00 uIU/mL 08/05/2025 5:31 PM EST [facility] Blood (Blood) Venipuncture / Unknown 08/05/2025 3:28 PM EST 08/05/2025 3:39 PM EST us Austin Wynn MD, MPH LAB BLOOD BKR ORDERABLES Madie l Result [facility] [address] [place] [address] * Complement C3 (08/05/2025 3:28 PM EST) C3 92 81 - 157 mg/dl 08/07/2025 11:54 AM EST [facility] Blood (Blood) Venipuncture / Unknown 08/05/2025 3:28 PM EST 08/05/2025 3:40 PM EST us Austin Wynn MD, MPH LAB BLOOD BKR ORDERABLES Madie l Result Performing Organization Address City/[facility]/ZIP Co de Phone Number [address] [address] * Complement C4 (08/05/2025 3:28 PM EST) C4 20 12 - 39 mg/dL 08/07/2025 11:54 AM EST [facility] Blood (Blood) Venipuncture / Unknown 08/05/2025 3:28 PM EST 08/05/2025 3:40 PM EST us Austin Wynn MD, MPH LAB BLOOD BKR ORDERABLES Madie l Result Performing Organization Address [facility] Co de Phone Number [address] [address] * T4, Free (08/05/2025 3:28 PM EST) T4, Free 1.4 0.9 - 1.8 ng/dL 08/05/2025 6:01 PM EST [facility] Blood (Blood) Venipuncture / Unknown 08/05/2025 3:28 PM EST 08/05/2025 3:39 PM EST us Austin Wynn MD, MPH LAB BLOOD BKR ORDERABLES Madie l Result Performing Organization Address City/[facility] Co de Phone Number [address] [address] * CT ANGIO ABDOMEN/PELVIS WITH AND WITHOUT CONTRAST (07/16/2025 6:55 PM EDT) Anatomical Region Laterality Modality Abdomen, Abdominal Vasculature C omputed Tomography 07/16/2025 7:20 PM EDT Impressions 07/16/2025 7:54 PM EDT 1. No active GI bleed. 2. Mesenteric vessels are patent without evidence of end-organ ischemia. 3. Interval decrease in extent of gas in the periphery of the colon, which now appears predominantly intraluminal. ATTESTATION: I, Sameer Sandoval as teaching physician, have reviewed the images for this case and if necessary edited the report originally created by Destiny Izaguirre. Narrative 07/16/2025 7:[address] ANGIO ABDOMEN/PELVIS WITH AND WITHOUT CONTRAST Referring clinician's provided indication for this examination in Epic: * Abdominal pain, acute, nonlocalized; r/o mesenteric ischemia given finding of colonic pneumatosis TECHNIQUE: Multidetector-row CTA of the abdomen and pelvis was performed with intravenous contrast using tailored dose modulation techniques. Images were reconstructed in the axial, coronal, and sagittal planes, including angiographic image post-processing. COMPARISON: CT ABDOMEN/PELVIS WITH CONTRAST 16:47:51.000 VASCULAR FINDINGS: No active extravasation. No aortic aneurysm. Mild atherosclerotic disease. There is no aortic dissection, intramural hematoma, or occlusion. The celiac axis, SMA and PANCHO are patent. Renal arteries are patent bilaterally. Aorto-iliac system is patent without significant stenosis bilaterally. No intraluminal contrast extravasation to indicate active GI bleeding. There is no venous thrombosis. NON VASCULAR FINDINGS: Lung bases: No consolidation or pleural effusions. Liver: Similar scattered sub-5 mm hypodensities too small to characterize, yet statistically likely cysts. Biliary: Noninflamed gallbladder. No biliary ductal dilatation. Spleen: No splenomegaly or focal lesions. Pancreas: No masses, ductal dilation or peripancreatic fat stranding. Adrenal Glands: No nodules. Kidneys/Ureters: No hydronephrosis. Similar focal scarring in the right kidney lower pole. Similar bilateral sub-5 mm cortical hypodensities too small to characterize, likely cysts Bowel: No bowel wall thickening or dilatation. Interval decrease in number and extent of small air locules in the periphery of the colon, now appearing predominantly intraluminal rather than mural. Normal appendix. Peritoneum/Retroperitoneum: No pneumoperitoneum or free fluid. Lymph Nodes: No lymphadenopathy. Pelvic Organs/Bladder: No significant abnormality. Bones/Soft Tissues: Interbody disc spacers at L3-L4, L4-L5, and L5-S1. Unchanged spinal cord stimulator battery pack in the right gluteal subcutaneous tissues with leads entering the spinal canal at the L1-L2 level with tip coursing superiorly. Diastasis recti. Similar fat-containing small supraumbilical hernia along the right linea alba. Procedure Note Sameer Sandoval MD - 07/16/2025 CT ANGIO ABDOMEN/PELVIS WITH AND WITHOUT CONTRAST Referring clinician's provided indication for this examination in Epic: *Abdominal pain, acute, nonlocalized; r/o mesenteric ischemia given findingof colonic pneumatosis TECHNIQUE: Multidetector-row CTA of the abdomen and pelvis was performedwith intravenous contrast using tailored dose modulation techniques.Images were reconstructed in the axial, coronal, and sagittal planes,including angiographic image post-processing. COMPARISON: CT ABDOMEN/PELVIS WITH CONTRAST 16:47:51.000 VASCULAR FINDINGS: No active extravasation. No aortic aneurysm. Mild atheroscleroticdisease. There is no aortic dissection, intramural hematoma, or occlusion. The celiac axis, SMA and PANCHO are patent. Renal arteries are patent bilaterally. Aorto-iliac system is patent without significant stenosis bilaterally. No intraluminal contrast extravasation to indicate active GI bleeding. There is no venous thrombosis. NON VASCULAR FINDINGS: Lung bases: No consolidation or pleural effusions. Liver: Similar scattered sub-5 mm hypodensities too small to characterize,yet statistically likely cysts. Biliary: Noninflamed gallbladder. No biliary ductal dilatation. Spleen: No splenomegaly or focal lesions. Pancreas: No masses, ductal dilation or peripancreatic fat stranding. Adrenal Glands: No nodules. Kidneys/Ureters: No hydronephrosis. Similar focal scarring in the rightkidney lower pole. Similar bilateral sub-5 mm cortical hypodensities toosmall to characterize, likely cysts Bowel: No bowel wall thickening or dilatation. Interval decrease in numberand extent of small air locules in the periphery of the colon, nowappearing predominantly intraluminal rather than mural. Normal appendix. Peritoneum/Retroperitoneum: No pneumoperitoneum or free fluid. Lymph Nodes: No lymphadenopathy. Pelvic Organs/Bladder: No significant abnormality. Bones/Soft Tissues: Interbody disc spacers at L3-L4, L4-L5, and L5-S1.Unchanged spinal cord stimulator battery pack in the right glutealsubcutaneous tissues with leads entering the spinal canal at the L1-U0svwei with tip coursing superiorly. Diastasis recti. Similarfat-containing small supraumbilical hernia along the right linea alba. IMPRESSION: 1. No active GI bleed. 2. Mesenteric vessels are patent without evidence of end-organischemia. 3. Interval decrease in extent of gas in the periphery of the colon, whichnow appears predominantly intraluminal. ATTESTATION: I, Sameer Sandoval as teaching physician, have reviewed theimages for this case and if necessary edited the report originally createdby Destiny Izaguirre. us Tyler Escudero MD, DPHIL IMG CT ABD/PELVIS Final Result * Lactate (07/16/2025 6:32 PM EDT) LACTATE 0.89 0.50 - 2.20 mmol/L [facility] Blood 07/16/2025 6:32 PM EDT 07/16/2025 6:36 PM EDT us Tyler Escudero MD, MARY JOKSL LAB BLOOD BKR ORD ERABLES Final Result [address] [address] * CT ABDOMEN/PELVIS WITH CONTRAST (07/16/2025 4:52 PM EDT) MGB IMG UNIT MANAGER CONVENIENCE STORES COMMENT diffuse colonic pneumatosis without perforation, obstruction, PV gas or additional signs of colonic ischemia. No cause of the pnumatosis identified. [facility] Anatomical Region Laterality Modality Abdomen, Pelvis Computed Tomogra phy 07/16/2025 5:39 PM EDT Impressions 07/16/2025 6:19 PM EDT 1. Interval development of diffuse colonic pneumatosis. This is associated with fluid-filled colon with air-fluid levels. The differential diagnosis includes benign pneumatosis versus colonic ischemia. No evidence of wall thickening, perforation, obstruction, mesenteric or portal venous gas, therefore colonic ischemia is not favored.. A clinically significant result was initiated on 07/16/2025 6:18 PM, Message ID [id number]. ATTESTATION: I, Fredis Betancourt as teaching physician, have reviewed the images for this case and if necessary edited the report originally created by Mike Arrieta. Narrative 07/16/2025 6:[address] ABDOMEN/PELVIS WITH CONTRAST Referring clinician's provided indication for this examination in [facility]: * Abdominal pain, fever; epigastric abdominal pain TECHNIQUE: Multidetector-row CT of the abdomen and pelvis was performed after administration of intravenous contrast using tailored dose modulation techniques. Images were reconstructed in the axial, coronal, and sagittal planes. COMPARISON: CT ABDOMEN/PELVIS WITH CONTRAST FINDINGS: Lower Chest: No consolidation or pleural effusions. Liver: Unchanged sub-5 mm hypodense lesions, too small to characterize by CT but statistically likely benign. Biliary: Noninflamed gallbladder. No biliary ductal dilatation. Spleen: No splenomegaly or focal lesions. Pancreas: No masses or ductal dilatation. Adrenal Glands: No nodules. Kidneys/Ureters: No hydronephrosis. 2 mm nonobstructing stones in the bilateral lower poles. Focal cortical scarring in the right lower pole. Bowel: Multifocal locules of punctate gas located along the periphery of intraluminal fluid throughout the colon particularly in the right colon, extending into the mid descending colon. These are seen circumferentially, but any colonic wall along the periphery of the luminal fluid. This has the appearance of diffuse colonic pneumatosis. There is no evidence of mesenteric or portal venous gas. There is no evidence of perforation or obstruction. This represents a new finding compared to the prior study. The colon is primarily fluid-filled with air-fluid levels present. The rectosigmoid colon is decompressed. Normal appendix. Peritoneum/Retroperitoneum: No pneumoperitoneum or free fluid. Lymph Nodes: No lymphadenopathy. Pelvic Organs/Bladder: No significant abnormality. Vessels: No abdominal aortic aneurysm. Widely patent superior mesenteric artery and superior mesenteric vein. Bones/Soft Tissues: Interbody disc spacers at L3-L4, L4-L5, and L5-S1. Unchanged spinal cord stimulator battery pack in the right gluteal subcutaneous tissues with leads entering the spinal canal at the L1-L2 level with tip coursing superiorly. Diastasis recti. Procedure Note Fredis Betancourt MD - 07/16/2025 CT ABDOMEN/PELVIS WITH CONTRAST Referring clinician's provided indication for this examination in Epic: *Abdominal pain, fever; epigastric abdominal pain TECHNIQUE: Multidetector-row CT of the abdomen and pelvis was performedafter administration of intravenous contrast using tailored dosemodulation techniques. Images were reconstructed in the axial, coronal,and sagittal planes. COMPARISON: CT ABDOMEN/PELVIS WITH CONTRAST FINDINGS: Lower Chest: No consolidation or pleural effusions. Liver: Unchanged sub-5 mm hypodense lesions, too small to characterize byCT but statistically likely benign. Biliary: Noninflamed gallbladder. No biliary ductal dilatation. Spleen: No splenomegaly or focal lesions. Pancreas: No masses or ductal dilatation. Adrenal Glands: No nodules. Kidneys/Ureters: No hydronephrosis. 2 mm nonobstructing stones in thebilateral lower poles. Focal cortical scarring in the right lower pole. Bowel: Multifocal locules of punctate gas located along the periphery ofintraluminal fluid throughout the colon particularly in the right colon,extending into the mid descending colon. These are seen circumferentially,but any colonic wall along the periphery of the luminal fluid. This hasthe appearance of diffuse colonic pneumatosis. There is no evidence ofmesenteric or portal venous gas. There is no evidence of perforation orobstruction. This represents a new finding compared to the prior study.The colon is primarily fluid-filled with air-fluid levels present. Therectosigmoid colon is decompressed. Normal appendix. Peritoneum/Retroperitoneum: No pneumoperitoneum or free fluid. Lymph Nodes: No lymphadenopathy. Pelvic Organs/Bladder: No significant abnormality. Vessels: No abdominal aortic aneurysm. Widely patent superior mesentericartery and superior mesenteric vein. Bones/Soft Tissues: Interbody disc spacers at L3-L4, L4-L5, and L5-S1.Unchanged spinal cord stimulator battery pack in the right glutealsubcutaneous tissues with leads entering the spinal canal at the L1-E2jfbpg with tip coursing superiorly. Diastasis recti. IMPRESSION: 1. Interval development of diffuse colonic pneumatosis. This isassociated with fluid-filled colon with air-fluid levels. The differentialdiagnosis includes benign pneumatosis versus colonic ischemia. No evidenceof wall thickening, perforation, obstruction, mesenteric or portal venousgas, therefore colonic ischemia is not favored.. A clinically significant result was initiated on 07/16/2025 6:18 PM,Message ID [id number]. ATTESTATION: I, Fredis Betancourt as teaching physician, have reviewed theimages for this case and if necessary edited the report originally createdby Mike Arrieta. us Tyler Escudero MD, DPHIL IMG CT ABD/PELVIS Final Result * (ABNORMAL) Urinalysis w/reflex Urine Culture (07/16/2025 4:24 PM EDT) Only the most recent of2 resultswithin the time period is included. COLOR Yellow Yellow [facility] CLARITY Clear [facility] GLUCOSE Negative Negative [facility] BILI Negative Negative [facility] KETONES Trace(A) Negative [facility] SPECIFIC GRAVITY 1.020 1.005 - 1.030 [facility] BLOOD Negative Negative [facility] PH 5.5 5.0 - 8.0 [facility] Protein-UA Negative Negative [facility] NITRITE Negative Negative [facility] Leukocyte esterase, ur Negative Negative [facility] Urine (Urine) 07/16/2025 4:2 4 PM EDT 07/16/2025 4:42 PM EDT Joe Dowell MD LAB URINE ORDERAB LES Final Result Performing Organization Address [facility]/ZIP Co de Phone Number [address] [address] * HCG, serum qualitative (07/16/2025 2:22 PM EDT) Only the most recent of2 resultswithin the time period is included. HCG, QUALITATIVE Negative Negative IU/L [facility] Blood 07/16/2025 2:22 PM EDT 07/16/2025 2:31 PM EDT Joe Dowell MD LAB BLOOD BKR ORD ERABLES Final Result Performing Organization Address [facility]/ZIP Co de Phone Number [address] [address] * LFTs (hepatic panel) (07/16/2025 2:22 PM EDT) Only the most recent of2 resultswithin the time period is included. ALKALINE PHOSPHATASE 78 39 - 117 U/L [facility] TOTAL BILIRUBIN 0.5 0.0 - 1.2 mg/dL [facility] DIRECT BILIRUBIN 0.1 0.0 - 0.2 mg/dL [facility] Bilirubin (Indirect) NOT CALCULATED 0 - 1.5 mg/dL [facility] AST 15 0 - 37 U/L [facility] ALT 15 0 - 40 U/L [facility] TOTAL PROTEIN 7.1 6.5 - 8.0 g/dL [facility] ALBUMIN 4.7 3.9 - 4.8 g/dL [facility] GLOBULIN 2.4 1 - 4.8 g/dL [facility] A/G Ratio 1.96 1.00 - 4.80 RATIO [facility] Blood 07/16/2025 2:22 PM EDT 07/16/2025 2:31 PM EDT us Joe Dowell MD LAB BLOOD BKR ORD ERABLES Final Result [address] [address] * (ABNORMAL) CBC and differential (07/16/2025 2:22 PM EDT) Only the most recent of2 resultswithin the time period is included. WBC 5.30 4.00 - 11.00 K/uL [facility] RBC 4.91 4.00 - 5.20 M/uL [facility] HGB 15.3 12.0 - 16.0 g/dL [facility] HCT 45.9 36.0 - 46.0 % [facility] PLT 178 150 - 450 K/uL [facility] MCV 93.5 80.0 - 100.0 fL [facility] MCH 31.2(H) 27.0 - 31.0 pg [facility] MCHC 33.3 32.0 - 36.0 g/dL [facility] RDW 12.4 11.5 - 14.5 % [facility] MPV 10.5 8.4 - 12.0 fL [facility] NRBC 0.00 0.00 /100 WBCs [facility] ABSOLUTE NRBC 0.00 0.00 K/uL [facility] DIFF METHOD Auto [facility] NEUTS 53.1 48.0 - 76.0 % [facility] LYMPHS 37.4 18.0 - 41.0 % [facility] MONOS 7.2 4.0 - 11.0 % [facility] EOS 1.5 0.0 - 5.0 % [facility] BASOS 0.6 0.0 - 1.5 % [facility] Granulocytes, immature (%) 0.2 0.0 - 0.9 % [facility] ABSOLUTE NEUTS 2.82 1.92 - 7.60 K/uL [facility] ABSOLUTE LYMPHS 1.98 0.72 - 4.10 K/uL [facility] ABSOLUTE MONOS 0.38 0.16 - 1.10 K/uL [facility] ABSOLUTE EOS 0.08 0.00 - 0.50 K/uL [facility] ABSOLUTE BASOS 0.03 0.00 - 0.15 K/uL [facility] Granulocytes, immature 0.01 0.00 - 0.09 K/uL [facility] Blood 07/16/2025 2:22 PM EDT 07/16/2025 2:31 PM EDT Joe Dowell MD LAB BLOOD BKR ORD ERABLES Final Result Performing Organization Address City/State/[facility] Co de Phone Number [address] [address] * Lipase (07/16/2025 2:22 PM EDT) Only the most recent of2 resultswithin the time period is included. LIPASE 61 16 - 63 U/L [facility] Blood 07/16/2025 2:22 PM EDT 07/16/2025 2:31 PM EDT Joe Dowell MD LAB BLOOD BKR ORD ERABLES Final Result Performing Organization Address [facility] Co de Phone Number [address] [address] * Basic metabolic panel (07/16/2025 2:22 PM EDT) Only the most recent of2 resultswithin the time period is included. SODIUM 140 133 - 146 mmol/L [facility] CHLORIDE 106 96 - 108 mmol/L [facility] POTASSIUM 3.9 3.3 - 5.1 mmol/L [facility] CO2 22 21 - 35 mmol/L [facility] BUN 11 6 - 19 mg/dL [facility] CREATININE 0.70 0.5 - 1.5 mg/dL [facility] GLUCOSE 93 70 - 99 mg/dL [facility] CALCIUM 9.6 8.4 - 10.3 mg/dL [facility] EGFR 107 >59 mL/min/1.7 3m2 [facility] Comment:Estimated glomerular filtration rate calculated using the CKD-EPI refit equation. ANION GAP 16 10 - 20 mmol/L [facility] Blood 07/16/2025 2:22 PM EDT 07/16/2025 2:31 PM EDT Joe Dowell MD LAB BLOOD BKR ORD ERABLES Final Result Performing Organization Address [facility] Co de Phone Number [address] [address] * ECG 12-LEAD (07/16/2025 2:05 PM EDT) Ventricular Rate EKG/MIN 59 BPM [facility] Atrial Rate 59 BPM [facility] NH Interval 190 ms [facility] QRS Duration 108 ms [facility] QT Interval 410 ms [facility] QTC Interval 405 ms [facility] P [place] 76 degrees [facility] R Wave [place] 47 degrees [facility] T Wave [place] 69 degrees [facility] 07/16/2025 2:05 PM EDT 07/17/2025 11:39 AM EDT Narrative [facility] - 07/17/2025 11:39 AM EDT Sinus bradycardia Incomplete right bundle branch block Borderline ECG When compared with ECG of 13-Oct-2014 04:14, Incomplete right bundle branch block is now Present Confirmed by Roberto Martinez ([id number]) on 07/17/2025 11:39:50 AM us Joe Dowell MD ECG ORDERABLES F inal Result [facility] * CT ABDOMEN/PELVIS WITH CONTRAST (06/27/2025 1:41 PM EDT) Anatomical Region Laterality Modality Abdomen, Pelvis Computed Tomogra phy 06/27/2025 2:17 PM EDT Impressions 06/27/2025 2:46 PM EDT No acute abnormality in the abdomen or pelvis. Specifically, no umbilical hernia as clinically queried. ATTESTATION: I, Fredis Betancourt as teaching physician, have reviewed the images for this case and if necessary edited the report originally created by Gil Prather. Narrative 06/27/2025 2:[address] ABDOMEN/PELVIS WITH CONTRAST Referring clinician's provided indication for this examination in Epic: * Abdominal pain, hernia suspected; * Bowel obstruction suspected; HX OF HERNIA REPAIR. cf umbilical hernia TECHNIQUE: Multidetector-row CT of the abdomen and pelvis was performed after administration of intravenous contrast using tailored dose modulation techniques. Images were reconstructed in the axial, coronal, and sagittal planes. COMPARISON: CT ABDOMEN/PELVIS WITH CONTRAST FINDINGS: Lower Chest: No consolidation or pleural effusions. Liver: Subcentimeter right hepatic hypodensities, too small to characterize. Biliary: Decompressed gallbladder. No biliary ductal dilatation. Spleen: No splenomegaly or focal lesions. Pancreas: No masses or ductal dilatation. Adrenal Glands: No nodules. Mild thickening of the left adrenal gland (2:18) Kidneys/Ureters: Similar right lower pole cortical scarring. Similar right upper pole renal cyst. Similar nonobstructing 2 mm left lower pole renal stone (3:164). No solid masses or hydronephrosis. Bowel: Normal appendix. Normal small bowel and colon. Peritoneum/Retroperitoneum: No masses, pneumoperitoneum, or fluid. Lymph Nodes: No lymphadenopathy. Pelvic Organs/Bladder: Hysterectomy. No mass. Partially distended urinary bladder. Vessels: No abdominal aortic aneurysm. Bones/Soft Tissues: Interbody disc spacers at L3-L4, L4-L5, and L5-S1. Unchanged spinal cord stimulator battery pack in the right gluteal subcutaneous tissues with leads entering the spinal canal at the1 L1-L2 level with tip coursing superiorly. No umbilical hernia. Procedure Note Fredis Betancourt MD - 06/27/2025 CT ABDOMEN/PELVIS WITH CONTRAST Referring clinician's provided indication for this examination in Epic: *Abdominal pain, hernia suspected; * Bowel obstruction suspected; HX OFHERNIA REPAIR. cf umbilical hernia TECHNIQUE: Multidetector-row CT of the abdomen and pelvis was performedafter administration of intravenous contrast using tailored dosemodulation techniques. Images were reconstructed in the axial, coronal,and sagittal planes. COMPARISON: CT ABDOMEN/PELVIS WITH CONTRAST 2023- FINDINGS: Lower Chest: No consolidation or pleural effusions. Liver: Subcentimeter right hepatic hypodensities, too small tocharacterize. Biliary: Decompressed gallbladder. No biliary ductal dilatation. Spleen: No splenomegaly or focal lesions. Pancreas: No masses or ductal dilatation. Adrenal Glands: No nodules. Mild thickening of the left adrenal gland(2:18) Kidneys/Ureters: Similar right lower pole cortical scarring. Similar rightupper pole renal cyst. Similar nonobstructing 2 mm left lower pole renalstone (3:164). No solid masses or hydronephrosis. Bowel: Normal appendix. Normal small bowel and colon. Peritoneum/Retroperitoneum: No masses, pneumoperitoneum, or fluid. Lymph Nodes: No lymphadenopathy. Pelvic Organs/Bladder: Hysterectomy. No mass. Partially distended urinarybladder. Vessels: No abdominal aortic aneurysm. Bones/Soft Tissues: Interbody disc spacers at L3-L4, L4-L5, and L5-S1.Unchanged spinal cord stimulator battery pack in the right glutealsubcutaneous tissues with leads entering the spinal canal at the1 L1-H1flgsw with tip coursing superiorly. No umbilical hernia. IMPRESSION: No acute abnormality in the abdomen or pelvis. Specifically, no umbilicalhernia as clinically queried. ATTESTATION: I, Fredis Betancourt as teaching physician, have reviewed theimages for this case and if necessary edited the report originally createdby Gil Prather. Brian Alejandro MD IMG CT ABD/PELVIS Final Res ult from Last 3 Months Insurance MEDICARE PART A & B [facility] [place] BLUE RE[place]AC[place] MEDICARE PART A & [place] BL[place] MED[place] PART A [place] [facility] MEDICARE PPO BLUE REPLACEMENT MEDICARE PART A & B [facility]ICARE PPO BLUE REPLACEMENT MEDICARE PART A & B [facility] [place] [place] MEDICARE PART A & B [facility] [place] RE[place] MEDICARE PART A & B MEDICARE PART A & B MEDICARE PART A & B [employer] Care Teams Supercalender Operator Relationship Specialty Start Date End Date Yoko He MD [address] [place] [address] PCP - General Internal Medicine 04/23/19 Additional Source Comments The information contained in this document represents components of the legal health record. It is not the complete legal health record.[facility]
--- OUTSIDE RECORDS SUMMARY | 2025-09-22 16:42 | XMS_ITS | Encounter Summary ---
Author Organization [facility] Address [address] [place] [id number] Phone Care Team Providers Care Underwear Finisher Name Role Phone Yoko He MD Primary Care Provider [phone] Encounter Details Date Type Department Care Team (Late Contact Info) Description 11/21/2023 Procedure Pass [facility] Radiology [address] [place] [address] Social History Tobacco Use Types Packs/Day Years [...] Info) Description 11/05/2025 11:40 AM EST Telemedicine [facility] G[facility]ology [facility] [address] [facility] [address] [place] [address] Austin Wynn MD, MPH [address] [facility] [address] [email or web address] 03/10/2026 10:00 AM EDT Office Visit [facility] Allergy [facility] Immunology [facility] [address] [address] Noelle Nelson MD [address] [place] [phone] [email or web address] 03/10/2026 11:20 AM EDT Office Visit [facility] [address] [place] [address] Noelle Nelson MD [address] [place] [phone] [email or web address] documented as of this encounter Visit Diagnoses Not on filedocumented in this encounter Care Teams Underwear Finisher Relationship Specialty Start Date End Date Yoko He MD [address] [place] [id number] PCP - General Internal Medicine 04/23/19 documented as of this encounter Additional Source Comments The information contained in this document represents components of the legal health record. It is not the complete legal health record.[facility]
--- OUTSIDE RECORDS SUMMARY | 2025-09-22 16:42 | XMS_ITS | Encounter Summary ---
Author Organization [facility] Address [address] [place] [phone] Phone Care Team Providers Care Superintendent Geophysical Laboratory Name Role Phone Yoko He MD Primary Care Provider [phone] Encounter Details Date Type Department Care Team (Late st Contact Info) Description 06/27/2025 Procedure Pass [facility], Ct Scan - [address] [address] Social History Tobacco Use Types Packs/Day Years [...] as food, clothing, or medical care? No 06/27/2025 In the past 12 months have y ou been in a relationship with a person who hurts, threatens, or tries to control you? No 06/27/2025 Are you denied basic needs s uch as food, clothing, or medical care? No 06/27/2025 In the past 12 months have y ou been in a relationship with a person who hurts, threatens, or tries to control you? No 06/27/2025 Comments No Sex and Gender Information Value Date Recorded Sex Assigned at Female 04/13/2021 12:49 PM EDT Legal Sex Female 7:36 PM EST Gender Identity Female 04/13/2021 12:49 PM EDT Sexual Orientation Straight 04/13/2021 12 :49 PM EDT documented as of this encounter Plan of Treatment Upcoming Encounters Date Type Department Care Team (Late st Contact Info) Description 11/05/2025 11:40 AM EST Telemedicine [facility] Gastroenterology Clinic [address] [id number] [place] [address] Austin Wynn MD, MPH [address] [facility] [place] [address] [email or web address] 03/10/2026 10:00 AM EDT Office Visit [facility] All[facility] Immunology [facility] [address] [address] Noelle Nelson MD [address] [place] [phone] [email or web address] 03/10/2026 11:20 AM EDT Office Visit [facility] [address] [place] [phone] Noelle Nelson MD [address] [place] [phone] [email or web address] documented as of this encounter Visit Diagnoses Not on filedocumented in this encounter Care Teams Superintendent Geophysical Laboratory Relationship Specialty Start Date End Date Yoko He MD [place] [address] PCP - General Internal Medicine 04/23/19 documented as of this encounter Additional Source Comments The information contained in this document represents components of the legal health record. It is not the complete legal health record.[facility]
--- OUTSIDE RECORDS SUMMARY | 2025-09-22 16:42 | XMS_ITS | Patient Health Record ---
Author Organization [employer] [facility] Address [address] [place] [address] Care Team Providers Care Bank Messenger Name Role Phone CHRISTIANO ADAM MD Primary Care Provider MARTINE Somers Unavailable [phone] Allergies Allergen (clinical drug ingredient) Drug/Non Drug Allergy documented on EMR Reaction Allergy Type Onset Date Status ALL PAIN MEDICATION (uncoded) Unknown Allergy Active Wheat WHEAT (uncoded) Unknown Allergy Acti ve meperidine Demerol Unknown Drug Allergy Active [place] Unknown Allergy Active heparin Heparin Unknown Drug Allergy Active Reason For Referral No Information Medications Medication SIG (Take, Route, Frequency, Duration) Notes Start Date End Date Status Gabapentin 300 MG Capsule 1 cap(s) orally 2 times a day Active Amitiza 8 MCG Capsule 1 cap(s) orally 2 times a day Not-Taking Cyclobenzaprine HCl 10 MG Tablet 1 tab(s) orally PRN 3 times a day Active Tirosint 112 MCG (0.112 MG) CAPSULE 1 CAP(S) ORALLY ONCE A DAY; Duration: 30 NAME ONLY Conversion from [employer] Review and pick correct strength-formulat ion from [employer] options. If intended option is not shown, discontinue and re-order from Quick Search. Active Social History Tobacco Use: Social History Observation Description Date Details (start date - stop date) Former Smoker NA - NA Social History Tobacco Use: Social Info Question Answer Notes Smoking Are you a: former smoker Additional Details Category Social Info Options Details General Occupation: Student asbestos exposure: no Past year's travels: None 2018 alcohol use: no drug use: yes Marijuana Coffee/Tea/Soda: no a pot of coffee daily Marital Status experience no Living with Children smokers in household no Problems Problem Type SNOMED Code ICD Code Onset Dates Problem Status W/U Status Risk Notes Problem Acquired hypothyroidism (149417510) Acquired hypothyroidism (E03.9) Active confirmed Problem History of malignant neoplasm of thyroid (583208247) History of thyroid cancer (Z85.850) Active confirmed Plan Of Treatment Future Test Test Name Order Date US : NECK 12/30/2019 TSH WITH REFLEX TO FT4 01/05/2020 Thyroglobulin, Tumor Marker with Reflex (RED Top only) 01/05/2020 Insurance Providers Payer Name Payer Address Payer Phone Subscriber Number Group Number Insured Name Patient Relationship to Insured Coverage Start Date Coverage End Date [facility] [address] [place] [phone] [id number] ALEX TUTTLE Self - patient is the insured Medical (General) History Medical History History ICD Code Seasonal allergies Papillary thyroid cancer s/p total thyroidectomy ~ 2010, [place]; 4.3 cm papillary CA minimal extrathyroidal extension, margins negative, 6 LN negative; T3N0Mx; no FERREIRA; TG has remained undetectable, stimulated TG 2011 negative (per [facility] records); neck u/s without suspicious appearing LN hypothyroidism following total thyroidec pat Kidney stones x2, lithotripsy Seizures Vitiligo Colon cancer, colectomy, no XRT Surgical History Surgery Date(Month/Year) Hernia mesh fix 04/30/2019 colectomy hysterectomy, partial Left eye Cataract surgey lithotripsy Back surgery 01/2018
--- OUTSIDE RECORDS SUMMARY | 2025-09-22 16:42 | XMS_ITS | Encounter Summary ---
Author Organization [facility] Address [address] [place] [address] [place] [phone] Phone Care Team Providers Care [employer] Center Manager Name Role Phone Yoko He MD Primary Care Provider [phone] Encounter Details Date Type Department Care Team (Late st Contact Info) Description 09/04/2025 Orders Only [facility] [address] [address] Austin Wynn MD, MPH [address] [place] [address] [email or web address] Social History Tobacco Use Types Packs/Day Years [...] Info) Description 11/05/2025 11:40 AM EST Telemedicine [facility] [address] [place] [address] Austin Wynn MD, MPH [address] [facility] [place] [address] [email or web address] 03/10/2026 10:00 AM EDT Office Visit [facility] [address] [address] Noelle Nelson MD [address] [place] [phone] [email or web address] 03/10/2026 11:20 AM EDT Office Visit [facility] [address] [address] Noelle Nelson MD [address] [place] [phone] [email or web address] documented as of this encounter Visit Diagnoses Not on filedocumented in this encounter Care Teams Automotive Center Manager Relationship Specialty Start Date End Date Yoko He MD [facility] [place] [address] PCP - General Internal Medicine 04/23/19 documented as of this encounter Additional Source Comments The information contained in this document represents components of the legal health record. It is not the complete legal health record.[facility]
== END 2025-09-22 16:16 | disposition home or self-care (01) ==
LOC: HO.ENCR 15:37
PROVIDERS: PCP Internal Medicine; Visit Provider Internal Medicine Endocrinology, Diabetes & Metabolism
DX: E03.9 Hypothyroidism, unspecified (principal)
CPT/HCPCS: 99204

== ENCOUNTER → 2025-09-22 15:36 | Outpatient (BNVA) | payer MEDICARE, MEDICAID, SELFPAY | PROVIDERS: PCP Internal Medicine; Visit Provider Internal Medicine Endocrinology, Diabetes & Metabolism | DX: E03.9 Hypothyroidism, unspecified (principal); L80 Vitiligo; Z98.890 Other specified postprocedural states; Z85.850 Personal history of malignant neoplasm of thyroid; Z79.899 Other long term (current) drug therapy | CPT/HCPCS: 99202 ==